=== PATIENT | female | born 1950 | race Caucasian/White ===

== ENCOUNTER → 2017-12-10 13:54 | Outpatient (CLI) | payer OTHER, SELFPAY ==
--- NOTE | 2017-12-10 13:57 | CDU_ITS ---
Reason For Study: Carotid stenosis Rt. Velocities/BP Lt. Velocities/BP Prox CCA 105.0/22.9 cm/sec. Prox CCA 110.0/21.7 cm/sec. Mid CCA 99.7/25.2 cm/sec. Mid CCA 108.0/25.2 cm/sec. Dist CCA 88.5/20.5 cm/sec. Dist CCA 95.0/28.7 cm/sec. Prox ICA 108.0/36.4 cm/sec. Prox ICA 267.0/72.3 cm/sec. Mid ICA 138.0/41.6 cm/sec. Mid ICA 135.0/35.7 cm/sec. Dist ICA 104.0/30.5 cm/sec. Dist ICA 103.0/31.1 cm/sec. Rt. ICA/CCA = 1.4. Lt. ICA/CCA = 2.5. Prox ECA 111.0/12.3 cm/sec. Prox ECA 110.0/11.7 cm/sec. Rt. Vert. 48.7/15.8 cm/sec. Lt. Vert. 35.0/9.8 cm/sec. Right Extracranial There is no significant atherosclerotic plaque noted in the right common carotid artery. There is heterogeneous, irregular atherosclerotic plaque noted in the right internal carotid artery. There is intimal thickening but no significant atherosclerotic plaque noted in the right external carotid artery. Antegrade flow is noted in the right vertebral artery. Left Extracranial There is no significant atherosclerotic plaque noted in the left common carotid artery. There is heterogeneous, irregular atherosclerotic plaque noted in the left internal carotid artery. There is no significant atherosclerotic plaque noted in the left external carotid artery. Antegrade flow is noted in the left vertebral artery. Procedure Carotid Duplex 50492. Exam performed in department. Interpretation Summary Moderate (50-69%) stenosis right extracranial internal carotid. Severe (>70%) stenosis left extracranial internal carotid. Flow within the vertebral arteries is antegrade bilaterally. Ordering Physician: MARYANN JEAN Referring Physician: Rupali Rizo Performed By: Annmarie Tran RVT
== END ==
PROVIDERS: Family Provider Family Medicine; PCP Family Medicine; Visit Provider Surgery Vascular Surgery
DX: I65.23 Occlusion and stenosis of bilateral carotid arteries (principal)
CPT/HCPCS: 93880

== ENCOUNTER → 2017-12-16 13:53 | Outpatient (CLI) | payer OTHER, SELFPAY ==
--- NOTE | 2017-12-16 14:02 | RAD_ITS ---
STUDY: X-RAY - LUMBAR SPINE REASON FOR EXAM: Female, 67 years old. Pain TECHNIQUE: 5 view(s) of the lumbar spine were obtained. COMPARISON: None FINDINGS: There is no evidence of fracture or dislocation in the lumbar spine. The vertebral body heights are well-maintained. There are mild degenerative changes. There are atherosclerotic calcifications noted in the aorta. RAD/L/S Spine Min 4 Views IMPRESSION: No fracture or dislocation in the lumbar spine. Mild degenerative changes. Atherosclerosis. Electronically Signed: Devonte Hawkins, at 19:36 EDT Tel , Service support ,
== END ==
PROVIDERS: Family Provider Family Medicine; PCP Family Medicine; Visit Provider Family Medicine
DX: M54.5 Low back pain (principal); G89.29 Other chronic pain
CPT/HCPCS: 72110

== ENCOUNTER → 2018-05-13 07:51 | Outpatient (CLI) | payer OTHER, SELFPAY ==
[2018-04-29 10:46] VITALS: BMI 34.8
--- NOTE | 2018-05-13 07:54 | BI_ITS ---
MAMMOGRAPHY - BILATERAL SCREENING REASON FOR EXAM: Female, 68 years old. Routine annual screening examination. PERTINENT HISTORY: Mother with breast cancer. Remote the left excisional breast biopsy. TECHNIQUE: Digital bilateral breast alfred (3D mammographic acquisition) in the CC and MLO projections. 2-D mediolateral oblique (MLO) and craniocaudad (CC) views of both breasts were obtained. CAD: Full Field Digital Mammography with Computer Added Detection was performed. COMPARISON: Comparison is made with prior study dated April 21, 2017 and April 01, 2016. FINDINGS: Breast Composition: The breasts are almost entirely fatty. There are no dominant masses or suspicious calcifications. Stable small bilateral benign appearing axillary lymph nodes. No other significant abnormalities are identified. There has been no significant change since the prior study. BI/SCREENING MAMM (CAD), BILAT IMPRESSION: Stable bilateral screening mammogram. Yearly follow-up mammogram recommended. (A) ASSESSMENT CATEGORY: BIRADS Category 2: Benign. A letter regarding these results will be sent to the patient by the facility within 30 days. Approximately 10% of breast cancers are not detected by mammography. A normal mammogram should not delay biopsy of a clinically suspicious abnormality. [id number] Electronically Signed: Mk Harris MD at 8:58 EST Tel [phone], Service support ,
--- OUTSIDE RECORDS SUMMARY | 2018-08-14 08:14 | XMS RPT_ITS ---
:1950 Author Organization OH[facility] Care Team Providers Name Role Phone Wyattgarcia, Rupali Attending Unavailable Malys, Rupali Primary Care Unavailable Raghav Voss Attending Unavailable Malys, Rupali Referring Unavailable Malys, Rupali Primary Care Unavailable Saul Tanner Attending Unavailable Malys, Rupali Referring Unavailable Malys, Rupali Primary Care Unavailable MIGUELANGEL PATTEN Attending Unavailable PATTEN, MIGUELANGEL Referring Unavailable Malys, Rupali Primary Care Unavailable Malys, Rupali Attending Unavailable Malys, Rupali Referring Unavailable Malys, Rupali Primary Care Unavailable Margaret John Attending Unavailable [place] Attending Unavailable Malys, Rupali Referring Unavailable Malys, Rupali Primary Care Unavailable ASSESSMENT, HEALTH RISK Attending Unavailable ASSESSMENT, HEALTH RISK Referring Unavailable Malys, Rupali Primary Care Unavailable Devonte Montemayor Attending Unavailable Malys, Rupali Referring Unavailable MIGUELANGEL PATTEN Attending Unavailable MALYS, RUPALI Saravanan Referring Unavailable MIGUELANGEL PATTEN Attending Unavailable IMCA Referring Unavailable IMCA Primary Care Unavailable PROBLEMS PROBLEMS DATE TYPE CONDITION / CODE ATTENDING STATUS SOURCE 01/09/2018 Active Unknown / MIGUELANGEL PATTEN Active [place] UNK(Unknown) [facility] Other [place] Repository 01/09/2018 Admitting Radha / MIGUELANGEL PATTEN Active [facility] diagnosis UNK(Unknown) [facility] Repository 01/06/2018 Unknown I25.10 - [place], Active [place] Atherosclerotic [facility] heart disease of [facility] [place] coronary Repository artery without angina pectoris / I25.10(ICD-10) 01/06/2018 Unknown I42.1 - Obstructive [place], Active [place] hypertrophic [facility] cardiomyopathy / Hospital I42.1(ICD-10) Repository 01/06/2018 Unknown E78.5 - [place], Active [place] Hyperlipidemia, [facility] unspecified / Hospital E78.5(ICD-10) Repository 01/06/2018 Unknown I34.1 - Nonrheumatic [place], Active [place] mitral (valve) [facility] prolapse / Hospital I34.1(ICD-10) Repository 01/06/2018 Unknown I34.0 - Nonrheumatic [place], Active [place] mitral (valve) [facility] insufficiency / Hospital I34.0(ICD-10) Repository 01/06/2018 Unknown I49.1 - Atrial [place], Active [place] premature [facility] depolarization / Hospital I49.1(ICD-10) Repository 01/06/2018 Unknown I49.3 - Ventricular [place], Active [place] premature [facility] depolarization / Hospital I49.3(ICD-10) Repository 01/06/2018 Unknown I65.23 - Occlusion [place], Active [place] and stenosis of [facility] bilateral carotid Hospital arteries / Repository I65.23(ICD-10) 12/16/2017 Unknown M54.5 - Low back Rupali Rizo Active [place] pain / M54.5(ICD-10) [facility] Hospital Repository 11/25/2017 Unknown M62.830 - [place] Saul Tanner Active [place] spasm of back / Community M62.830(ICD-10) Hospital Repository PROCEDURES PROCEDURES No Procedure Records FoundRESULTS RESULTS SCREENING MAMM (CAD), Observed: 05/13/2018 Status: F Source: [place] BIL 7:54 AM [facility] REPOSITORY [facility] Imaging Services [address] [place] [address] SCREENING MAMM (CAD), BIL MR#: [id number] Acct: [id number] Name: CRISTIAN HA Rep #: [id number] : 1950 F 68 From: Mk Harris MD PCP: Rupali Rioz DO Status: [facility] Study: SCREENING MAMM (CAD), BILAT Date of Exam: 05/13/18 Exam# [id number] Ordering Dr: Rupali Rizo DO MAMMOGRAPHY - BILATERAL SCREENING REASON FOR EXAM: Female, 68 years old. Routine annual screening examination. PERTINENT HISTORY: Mother with breast cancer. Remote the left excisional breast biopsy. TECHNIQUE: Digital bilateral breast alfred (3D mammographic acquisition) in the CC and MLO projections. 2-D mediolateral oblique (MLO) and craniocaudad (CC) views of both breasts were obtained. CAD: Full Field Digital Mammography with Computer Added Detection was performed. COMPARISON: Comparison is made with prior study dated April 21, 2017 and April 01, 2016. FINDINGS: Breast Composition: The breasts are almost entirely fatty. There are no dominant masses or suspicious calcifications. Stable small bilateral benign appearing axillary lymph nodes. No other significant abnormalities are identified. There has been no significant change since the prior study. BI/SCREENING MAMM (CAD), BILAT IMPRESSION: Stable bilateral screening mammogram. Yearly follow-up mammogram recommended. (A) ASSESSMENT CATEGORY: BIRADS Category 2: Benign. A letter regarding these results will be sent to the patient by the facility within 30 days. Approximately 10% of breast cancers are not detected by mammography. A normal mammogram should not delay biopsy of a clinically suspicious abnormality. [id number] Electronically Signed: Mk Harris MD at 8:58 EST Tel [phone], Service support , CC: Rupali Rizo DO Director Of Medical Review: Signed URGENT CARE VISIT Observed: 05/06/2018 Status: F Source: [place] RE[place] 6:48 AM [facility] REPOSITORY [facility] [address] [place] [address] OFFICE VISIT Date of Service: 04/29/18 MR#: [id number] Acct: [id number] Name: CRISTIAN HA Rep #: [id number] : 1950 Provider: Devonte MCGRATH Age/Sex: 67/F Location: [facility].NOW Status: Signed with Addenda ADDENDUM by Devonte MCGRATH on 05/06/18 at 0647 Addendum entered and electronically signed by ALCIDES Medina 05/06/18 06:47: Dx: Maxillary Sinusitis HPI Details: CRISTIAN HA, is a 67 F who presents to the office today for Assessment AND Plan Plan - ALCIDES Medina Augmentin as prescribed today. Clear fluids, rest, Tylenol, warm facial compresses as needed as instructed today. Follow-up with PCP in 3-5 days should symptoms not improved, sooner should symptoms worsen or any other concerns develop. Patient states acknowledging understanding all the above. This note was generated with RightsFlow dictation software. It may contain incorrect words, spelling, and punctuation that were not noted in checking the note before signing. 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 Accompanied by: Self Is patient in pain?: No Allergies No Known Allergies Allergy (Verified 04/29/18 10:47) Medications Ezetimibe [Zetia] 10 mg PO DAILY 02/20/14 [History Confirmed 04/29/18] Metoprolol(XL)Succ [Toprol Xl (Beta Mc)] 25 mg PO DAILY 02/20/14 [History Confirmed 04/29/18] Simvastatin [Zocor] 40 mg PO QHS 02/20/14 [History Confirmed 04/29/18] aspirin 81 mg tablet,delayed release 81 mg PO QDAY #30 tab 01/05/18 [Rx Confirmed 04/29/18] amoxicillin 875 mg-potassium clavulanate 125 mg tablet 1 tab PO BID #28 tab 04/29/18 [Rx Confirmed 04/29/18] [facility] Medical History Hyperlipidemia (Chronic) Carotid artery disease (Chronic) Atherosclerotic heart disease of [place] coronary artery without angina pectoris (Chronic) Nonrheumatic mitral valve regurgitation (Acute) Nonrheumatic mitral (valve) prolapse (Acute) Premature ventricular contraction (Acute) Premature atrial contractions (Acute) Hypertrophic obstructive cardiomyopathy (Chronic) Asthma (Chronic) Diverticulosis (Chronic) HTN (hypertension) (Chronic) Surgical History History of back surgery (Resolved) History of breast biopsy (Resolved) History of carpal tunnel surgery (Resolved) History of tonsillectomy (Resolved) Family History Father CAD (coronary artery disease) Myocardial infarction Hx of CABG Mother Hypertension Brother CAD (coronary artery disease) Myocardial infarction Brother CAD (coronary artery disease) Myocardial infarction Sister Diabetes Other Heart disease Social History Smoking Status: Never smoker alcohol intake: current details: occasional HPI HPI Chief Complaint: Sinus pain Details: CRISTIAN HA, is a 67 F who presents to the office today for initial evaluation approximately 1 month history of progressively worsening facial pressure, postnasal drip, chills. No complaints of fever, sweats, rash, cough, chest pain/shortness of breath, lightheadedness/ dizziness, syncope/near syncope. She is a non-smoker. She states she lives alone, noting she has not been around any others with similar symptoms. She has taken no gxkm-rzs-culwijz products to assist with her symptoms. She notes no other associated symptoms no other alleviating or aggravating factors. Exam Const General: cooperative, healthy appearing, no acute distress, comfortable Orientation: alert, awake, oriented x3 HENMT Head: normal to inspection Ears: hearing grossly normal bilaterally, external ears normal, TM's normal bilaterally, EAC's normal Nose: external nose normal, nares normal, septum normal, no nasal discharge Face and sinus: normal facial exam, face symmetric, sinus tenderness maxillary Mouth: oral mucosae normal, lip normal, tongue normal Teeth and gingiva: gingiva normal, dentition normal Throat: posterior oropharynx normal, tonsils normal, uvula midline, postnasal drainage (Scant purulent) Eyes General: appearance normal, both eyes and all related structures Neck Neck: normal visual inspection, full ROM, no meningeal signs, supple, lymphadenopathy (Bilateral anterior cervical node swelling and tenderness palpation) Neck mass: No Thyroid: thyroid normal Chest Chest palpation AND inspection: normal inspection of the chest Resp Effort AND Inspection: normal respiratory effort, able to speak in complete sentences, symmetric chest movement, no cough Auscultation: Bilateral: Clear to Auscultation Cardio Palpation: normal PMI Rate: regular rate Rhythm: regular rhythm Heart Sounds: S1 normal, S2 normal, no gallops, murmur systolic mid and III/, no rubs Pulses: radial pulses present GI Inspection: normal to inspection Skin General: no rashes or lesions noted Neuro General: alert, awake, oriented x3, gait normal Cognition: normal cognition Speech: speech normal Gait: normal gait Motor: muscle tone normal throughout Sensory Exam: no sensory deficits noted Psych Appearance: grossly normal Mental Status: mental status grossly normal Mood: congruent mood Affect: normal affect Speech and Movement: speech and movement normal Attitude: cooperative Thought Process: normal Thought Content: normal Judgment: judgment good Assessment AND Plan Plan Augmentin as prescribed today. Clear fluids, rest, Tylenol, warm facial compresses as needed as instructed today. Follow-up with PCP in 3-5 days should symptoms not improved, sooner should symptoms worsen or any other concerns develop. Patient states acknowledging understanding all the above. This note was generated with GeoQuipation software. It may contain incorrect words, spelling, and punctuation that were not noted in checking the note before signing. Medications New: Coding Level of Care Code Off vis,est,level 3 04/29/18 1107 <Electronically signed by Devonte MCGRATH> Date Devonte MCGRATH Cosigner Signature: Date (if applicable) CC: [facility], EMPLOYEE Collected: 02/16/2018 Status: F Source: [place] 6:21 AM [facility] REPOSITORY TYPE CODE TESTS RESULT OUT OF RANGE REFERENCE UNITS LAB L100.1000 4.4-11.0 K/mm3 Normal WBC 6.9 LAB L100.1200 4.2-5.4 M/mm3 Normal RBC 4.79 LAB L100.1300 12.0-15.0 g/dl Normal HGB 14.3 LAB L100.1400 37-47 % Normal HCT 42.2 LAB L100.1500 81-99 fL Normal MCV 88.1 LAB L100.1600 27.0-32.0 pg Normal MCH 29.9 LAB L100.1700 32-36 g/gl Normal MCHC 33.9 LAB L100.1810 11.6-14.6 % Normal RDW CV 13.0 LAB L100.1820 35.1-43.9 fl Normal RDW SD 41.4 LAB L100.1900 150-450 K/mm3 Normal PLT 215 LAB L100.2000 6.2-12.0 fl Normal MPV 11.4 LAB L100.2110 47-70 % Normal NEUT% 66.6 LAB L100.2210 19-41 % Low LY% 18.3 LAB L100.2310 0-10 % Normal MONO% 8.6 LAB L100.2410 0-5 % High EO% 5.7 LAB L100.2510 0-1 % Normal BASO% 0.4 LAB L100.2620 2.0-7.7 X10 3/uL Normal Absolute Neut 4.6 LAB L100.2720 0.83-4.51 X10 3/ul Normal Absolute Lymph 1.26 Performed By: #### L100.0200 #### [facility] Laboratory [address] [place], [place], [address] EMPLOYEE PROFILE Collected: 02/16/2018 Status: F Source: [place] 6:21 AM [facility] REPOSITORY TYPE CODE TESTS RESULT OUT OF RANGE REFERENCE UNITS LAB L501.0100 74-106 mg/dL High GLU 121 Result Comment: Fasting Glucose result from 100 to 125 mg/dL suggests IMPAIRED HOMEOSTASIS per A.D.A. criteria. Please note revised GLUCOSE reference range effective 2017. LAB L501.1000 7-18 mg/dL Normal BUN 18 LAB L501.1100 0.55-1.02 mg/dL Normal CREAT,SERUM 0.90 Result Comment: The validity of the calculated GFR AND GFRAA in patients over 70 years has not been determined. Clinical correlation is essential. LAB L501.1110 >60 mL/min Normal EST GFR 66 Result Comment: Non- GFR Calc LAB L501.1115 >60 mL/min Normal EST GFR - AA 80 Result Comment: GFR Calc LAB L501.1300 10-20 RATIO Normal BUN/CRE 20.0 LAB L501.1400 2.6-6.0 mg/dL Normal URIC 5.9 Result Comment: The drugs N-Acetylcysteine and Metamizole may falsely depress this assay. LAB L501.1500 6.4-8.2 g/dL Normal T PROT 7.0 LAB L501.1800 3.2-5.0 g/dL Normal ALB 3.7 LAB L501.1950 2.2-4.2 g/dL Normal GLOB 3.3 LAB L501.2000 0.9-2.4 RATIO Normal A/G 1.1 LAB L501.2200 8.5-10.1 mg/dL Normal CA 9.4 LAB L501.2300 2.5-4.9 mg/dL Normal PHOS 3.8 LAB L501.4100 15-37 U/L Normal AST 17 LAB L501.4305 45-117 U/L Normal ALK P 99 LAB L501.4405 13-56 U/L Normal ALT 23 LAB L501.4600 0.20-1.00 mg/dL Normal T BILI 0.70 LAB L501.4700 0.00-0.30 mg/dL Normal D BILI 0.22 LAB L501.4900 200 mg/dL Normal CHOL 130 Result Comment: <200 mg/dL Desirable 200-240 mg/dL Borderline >240 mg/dL High Risk LAB L501.5000 mg/dL Normal TRIG 69 Result Comment: The drugs N-Acetylcysteine and Metamizole may falsely depress this assay. Serum Triglycerides Reference Interval Normal <150 mg/dL Borderline high 150 - 199 mg/dL High 200 - 499 mg/dL Very High > or = 500 mg/dL LAB L501.5300 136-145 mmol/L Normal NA 145 LAB L501.5600 3.5-5.1 mmol/L Normal K 4.5 LAB L501.5900 98-107 mmol/L Normal CL 106 LAB L501.6100 21.0-32.0 mmol/L Normal CO2 30.0 LAB L501.6200 5-15 Normal 9 GAP LAB L501.6400 mg/dL Normal HDL 62 Result Comment: The drugs N-Acetylcysteine and Metamizole may falsely depress this assay. Reference Range HDL <40 mg/dL Low HDL Cholesterol HDL >or= 60 mg/dL High HDL Cholesterol LAB L501.6475 Normal CHOL:HDL 2.10 LAB L501.6500 0-130 mg/dL Normal LDL 54 LAB L501.6600 5-40 mg/dL Normal VLDL 14 LAB L504.2610 84-246 U/L Normal LDH 233 Performed By: #### L500.2900 #### [facility] Laboratory [address] [place], [address] [employer], EMPLOYEE Collected: 02/16/2018 Status: F Source: [place] 6:21 AM [facility] REPOSITORY TYPE CODE TESTS RESULT OUT OF RANGE REFERENCE UNITS LAB L400.3000 Yellow COLOR Normal Yellow LAB L400.3050 Clear Normal CLARITY Sl. Cloudy LAB L400.3200 Normal mg/dl Normal GLUCOSE, UR Normal LAB L400.3300 Negative mg/dL Normal BILIRUBIN URINE Negative LAB L400.3400 Negative mg/dl Normal KETONE UR Negative LAB L400.3465 1.002-1.030 Normal SP.GR. DIPSTX 1.015 LAB L400.3550 5.0 - 8.0 pH UR Normal 6.0 LAB L400.3600 Negative mg/dl PROT Normal DIPSTX Negative LAB L400.3700 Normal mg/dl Normal UROBILI Normal LAB L400.3750 Negative Normal NITRITE UR Negative LAB L400.3780 Negative /ul Normal OCCULT BLOOD-UR Negative LAB L400.3800 Negative /ul High LEUK ESTERASE 100 Performed By: #### L400.0100 #### [facility] Laboratory [address] [facility]. [place], [place], [address] NICOTINE URINE DRUG Collected: 02/16/2018 Status: F Source: [place] SCREEN 6:21 AM [facility] REPOSITORY TYPE CODE TESTS RESULT OUT OF RANGE REFERENCE UNITS LAB L505.6250 TO BE Normal CONFIRMED Result Comment: CONFIRMATORY TESTING FOR ALL POSITIVE URINE DRUG SCREEN RESULTS WILL ONLY BE SENT OUT UPON PHYSICIAN ORDER. The results of Urine Drug Screen methods provide only preliminary analytical test results. A more specific alternate chemical method must be used in order to obtain a confirmed analytical result. Gas chromatography/mass spectrometery (GC/MS) is the preferred confirmatory method. Clinical consideration and professional judgement should be applied to any drug of abuse test result, particularly when preliminary positive results are used. LAB L505.6270 <200 ng/mL Normal COT DRG Negative SCREEN Result Comment: Cotinine is the first-stage metabolite of Nicotine. Performed By: #### L505.6240 #### [facility] [address] [facility] [place], [address] PROGRESS Observed: 01/11/2018 Status: COMPLETED Source: [place] 11:02 AM [facility] REPOSITORY HNO ID: [id number] Author: Miguelangel Patten Service: (none) Author Type: Physician Type: Progress Notes Filed: 01/11/2018 11:04 AM Note Text: This patient is seen today in yearly follow-up of her carotid artery disease. She has known bilateral asymptomatic carotid artery stenosis that we have been following. Her recent carotid duplex suggests that the left may have proceeded beyond 70%. Now when I look at the imaging and compared to previous imaging there are criteria that are met do put this in the greater than 70% range but other criteria put it in the 50- 69% range. For this reason when I'm recommending to the patient is that we follow-up on this in the near future with a CT angiogram. I tell her that we will probably follow this up a little bit more closely since this is progressed. The patient is completely asymptomatic at this point in time she is had no evidence of any TIA or stroke symptomatology. She has had no amaurosis fugax. She has had no speech symptomatology. She has had no evidence of weakness numbness or incoordination of the arms or legs or face. With this being the case I do think it safe for us to go ahead and wait period of time and get a CT angiogram. I think that if this has shown progression to a greater than 80% level then we will have to consider surgical intervention. I explained this to the patient she seems to be satisfied with this plan of proceeding. We will go ahead and follow up with the patient when she returns after her CT angiogram has been performed in about 4-6 months.I spent 15 minutes in the visit, with more than 50% of the total khph-an-ufqr time of the visit in counseling / coordination of care. CNOV Observed: 01/09/2018 Status: COMPLETED Source: [place] 10:[address] [facility] Office Visit (AGMIL) CRISTIAN HA ([id number]) 1950 F Date Time Provider Department 01/09/18 10:30 AM MIGUELANGEL PATTEN During your visit today, we recorded the following information about you: Pulse Respiration Blood pressure Weight 68/minute 16/minute 122/70 90.7 kg Height 1.626 m Miguelangel Patten MD 01/11/2018 11:04 AM Signed This patient is seen today in yearly follow-up of her carotid artery disease. She has known bilateral asymptomatic carotid artery stenosis that we have been following. Her recent carotid duplex suggests that the left may have proceeded beyond 70%. Now when I look at the imaging and compared to previous imaging there are criteria that are met do put this in the greater than 70% range but other criteria put it in the 50-69% range. For this reason when I'm recommending to the patient is that we follow-up on this in the near future with a CT angiogram. I tell her that we will probably follow this up a little bit more closely since this is progressed. The patient is completely asymptomatic at this point in time she is had no evidence of any TIA or stroke symptomatology. She has had no amaurosis fugax. She has had no speech symptomatology. She has had no evidence of weakness numbness or incoordination of the arms or legs or face. With this being the case I do think it safe for us to go ahead and wait period of time and get a CT angiogram. I think that if this has shown progression to a greater than 80% level then we will have to consider surgical intervention. I explained this to the patient she seems to be satisfied with this plan of proceeding. We will go ahead and follow up with the patient when she returns after her CT angiogram has been performed in about 4-6 months.I spent 15 minutes in the visit, with more than 50% of the total qzoc-ys-vfpg time of the visit in counseling / coordination of care. Referring Provider: RUPALI RIZO [[id number]] Allergies As of Date: 01/09/2018 (No Known Allergies) Date Reviewed: 01/09/2018 Reviewed by: Naima Grullon LPN - Fully Assessed Reason for Visit: Stenosis [1326] Cmt: Cristian is here for yearly follow up carotid stenosis. Carotid doppler 12/10/17 Primary Visit Diagnosis:Carotid stenosis, asymptomatic, bilateral [I65.23] Prescriptions as of 01/09/2018 Sig: FLUTICASONE 50 MCG/ACTUATION * Use 2 Sprays in each nostril * SIMVASTATIN 40 MG TABLET Take 40 mg by mouth daily at * * TOPROL XL 50 MG TABLET,EXTEND* Take one(1) tablet daily. * ENTERIC COATED ASPIRIN 81 MG * Take one(1) tablet daily. * ZETIA 10 MG TABLET Take one(1) tablet daily. METHYLPREDNISOLONE 4 MG TABLE* As Instructed per package Patient not taking: Reported on 01/09/2018 BENZONATATE 100 MG CAPSULE Take 2 capsules by mouth thre* Patient not taking: Reported on 01/09/2018 CETIRIZINE 10 MG TABLET Take one(1) tablet daily. Problem List As Of Date 01/09/2018 Noted Resolved Hyperlipidemia [E78.5] INVALID FOR* Heart murmur [R01.1] INVALID FOR* Hypertension [I10] INVALID FOR* Allergic rhinitis [J30.9] INVALID FOR* Carotid stenosis, bilateral [I65.23] Encounter Status:Closed by MIGUELANGEL PATTEN MD on 01/11/18 CARDIOLOGY VISIT Observed: 01/05/2018 Status: F Source: [place] REPORT 4:36 PM [facility] REPOSITORY [address] [place] [address] OFFICE VISIT Date of Service: 01/05/18 MR#: [id number] Acct: [id number] Name: CRISTIAN HA Rep #: [id number] : 1950 Provider: Feliz Coronado MD Age/Sex: 67/F Location: [facility] Status: Signed HPI HPI Details: CRISTIAN HA, is a 67 F who presents to the office today for outpatient cardiovascular follow-up of her history of underlying CAD, hypertrophic obstructive type cardiomyopathy, PAC/PVCs and ectopic atrial tachycardia, mitral valve prolapse/regurgitation, superimposed upon carotid artery disease. Since her visit of 12/30/2016 she states she has been doing well from a cardiac standpoint. She denies any ongoing chest discomfort or difficulty breathing. There has been no issues with respect ongoing palpitations, near-syncope, or syncope. She is due to have her lipids checked in the near future. This will be with her wellness evaluation. She states she is due for peripheral vascular surgery appointment with Dr. Miguelangel Patten later this week. She recently had her carotid artery duplex study performed in preparation for this. The results are as noted below. Intake Vital Signs01/05/18 Height 5 ft 3 in 01/05/18 Weight: 202 lb 01/05/18 Body Mass Index (BMI) 35.7 01/05/18 Blood Pressure 120/64 Intake Visit Reasons: 1 Y FU Allergies No Known Allergies Allergy (Verified 01/05/18 15:45) Medications Ezetimibe [Zetia] 10 mg PO DAILY 02/20/14 [History Confirmed 01/05/18] Metoprolol(XL)Succ [Toprol Xl (Beta Mc)] 25 mg PO DAILY 02/20/14 [History Confirmed 01/05/18] Simvastatin [Zocor] 40 mg PO QHS 02/20/14 [History Confirmed 01/05/18] aspirin 81 mg tablet,delayed release 81 mg PO QDAY #30 tab 01/05/18 [Rx Confirmed 01/05/18] [facility] Medical History Hyperlipidemia (Chronic) Carotid artery disease (Chronic) Atherosclerotic heart disease of [place] coronary artery without angina pectoris (Chronic) Nonrheumatic mitral valve regurgitation (Acute) Nonrheumatic mitral (valve) prolapse (Acute) Premature ventricular contraction (Acute) Premature atrial contractions (Acute) Hypertrophic obstructive cardiomyopathy (Chronic) Asthma (Chronic) Diverticulosis (Chronic) HTN (hypertension) (Chronic) Surgical History History of back surgery (Resolved) History of breast biopsy (Resolved) History of carpal tunnel surgery (Resolved) History of tonsillectomy (Resolved) Family History Father CAD (coronary artery disease) Myocardial infarction Hx of CABG Mother Hypertension Brother CAD (coronary artery disease) Myocardial infarction Brother CAD (coronary artery disease) Myocardial infarction Sister Diabetes Other Heart disease Social History Smoking Status: Never smoker alcohol intake: current details: occasional ROS Const Const: Negative for fatigue, weakness, weight gain, weight loss, frequent falls or excessive sweating Eyes Eyes: Negative for change in vision, blurry vision or transient loss of vision ENT ENT: Negative for dizziness or balance problems Cardio Chest Pain: No Palpitations: No Edema: None Muscle aches with walking: None Resp Respiratory: Negative for SOB with activity or SOB at rest GI GI: Negative vomiting or vomiting blood/hematemesis : Negative for hematuria Musc Musc: Negative for balance problems, muscle aches/ myalgia, muscle weakness or joint pain Skin Skin: Negative non-healing lesions or rash Neuro Neuro: Negative for weakness, blurry vision, dizziness, lightheadedness, frequent falls or orthostatic symptoms Champ Hematologic/Lymphatic: Negative for easy bleeding Endo Endo: Negative for fatigue or excessive sweating Psych Psych: Negative for anxiety or depression Allergy Allergy/Immunology: Negative for hives, Negative for rash Cardiology Exam Const Appearance: cooperative, healthy appearing, comfortable, no acute distress, well developed and well groomed Nutritional Appearance: overweight Orientation: alert, awake and oriented x3 Head Head: normal to inspection, normocephalic and atraumatic Ears: hearing grossly normal bilaterally Nose: external nose normal Face and Sinus: face symmetric Mouth: oral mucosae normal Teeth and gingiva: fair dentition Eyes Eyelids: eyelids normal Conjunctivae: conjunctivae normal Pupils: PERRL EOM: EOM intact bilaterally Neck Neck: normal visual inspection and full ROM Carotids: normal carotid upstroke Chest Chest inspection: normal inspection of the chest and symmetric chest movement Auscultation: Bilateral: Clear to Auscultation Cardio Palpation: normal PMI Rate: regular rate Rhythm: regular rhythm Heart sounds: S1 normal and S2 normal Murmur: Grade 3/6, harsh, mid systolic, LLSB and LVOT altered with Valsalva and hand ice carver GI GI: normal to inspection, bowel sounds present, soft and no hepatosplenomegaly Neuro General: alert, awake and oriented x3 Skin Skin: no rashes or lesions noted Extremities Pulses: Normal: Right Radial Pulse, Left Radial Pulse Lower Extremity Edema: None: Bilateral Psych Psychological: normal affect Supplemental Info She had a transthoracic echocardiogram performed on 01/09/2017 Interpretation Summary Left ventricular systolic function is normal. The estimated ejection fraction is 70 %. Moderate concentric left ventricular hypertrophy. The left atrium is mildly enlarged. There is mild mitral annular calcification. Mild diffuse mitral valve thickening. Mild-Moderate (1-2+) eccentric mitral valve insufficiency. Trivial tricuspid valve insufficiency. Aortic sclerosis, no stenosis. Right ventricular systolic pressure estimated to be 30 mmHg. Transmitral diastolic flow velocities suggest diastolic dysfunction (pseudonormal pattern). She had a diagnostic cardiac catheterization performed on 08/13/2005, IMPRESSION 1. Elevation left ventricular and diastolic compatible with decreased diastolic compliance. 2, Intrapulmonary right heart pressures appear within acceptable limits. 3. Oxygen saturations found no obvious evidence of intracardiac shunting phenomena. 4. Left ventricular pullback procedure during Valsalva maneuver demonstrating an inducible gradient of approximately 47 mmHg. 5. Left ventricular evaluation during PVC maneuver demonstrating post PVC accentuation with Brockenbrough phenomenon. 6. Left ventricle: Preserved LV systolic function/hyperdynamic LV systolic function with an estimated LVEF of 70-75%. 7. Left main - Angiographically normal. 8. LAV - Angiographically normal. 9. LCX - Angiographically normal. 10. RCA Proximal minimal luminal irregularities. 11. Mitral valve Trace mitral valve regurgitation. COMMENTS Of note, the aforementioned findings, with respect to hemodynamics and left ventricular systolic function, appears suggestive of an underlying hypertrophic obstructive cardiomyopathy. She had a Holter monitor performed on 01/15/2011: RARE ISOLATED PREMATURE ATRIAL COMPLEXES. NO RUNS NOTED. RARE ISOLATED PREMATURE VENTRICULAR COMPLEXES. RARE VENTRICULAR SIGEMINY AND [id number]. NO RUN NOTED. NO SYMPTOMS DOCUMENTED IN 24 HOUR HOLTER DIARY. NORMAL SINUS RHYTHM WITH T WAVE INVERSION NOTED IN CHANNELS 2 AND 3. MINIMUM HR 52 BPM AT 2:29:13 AM WHILE ASLEEP. AVERAGE HR 75 8PM MAXIMUM HR 115 8PM AT 4:43:14 PM WHILE EXERCISING, NO SYMPTOM RECORDED, She had a carotid artery duplex study performed on 12/10/2017: Interpretation Summary Moderate (50-69%) stenosis right extracranial internal carotid. Severe (>70%) stenosis left extracranial internal carotid. Flow within the vertebral arteries is antegrade bilaterally. Assessment AND Plan 1. Atherosclerosis of [place] coronary artery of [place] heart without angina pectoris I25.10 Mild Plan At the present time she appears to be doing well. She will continue risk factor modification and medical management 2. Hypertrophic obstructive cardiomyopathy I42.1 Plan She does have a history of hypertrophic obstructive type cardiomyopathy. She appears to be doing well without any obvious symptoms or adverse events. She will continue her beta-mc therapy. 3. Hyperlipidemia, unspecified hyperlipidemia type E78.5 Plan Her lipid labs will be checked during her upcoming wellness evaluation. 4. Nonrheumatic mitral (valve) prolapse I34.1 Plan She does have a history of underlying mitral valve prolapse. She appears to be without significant change based on history or examination. Her mitral valve anatomy and physiology was evaluated during her most recent echocardiogram. She will continue to be followed over time 5. Nonrheumatic mitral valve insufficiency I34.0 Plan She does have a history of MR. Based on her recent echo it was mild to moderate. She will be followed by history, exam, and echocardiogram in the future. 6. Premature atrial beat I49.1 Plan She does have a history of underlying ectopy. She appears without obvious symptoms at this time. She will continue her beta-mc appendectomy. 7. Premature ventricular beat I49.3 Plan Again she is without obvious symptoms. She will continue her current beta-mc therapy. 8. Bilateral carotid artery stenosis I65.23 Plan She will be following up with Dr. Miguelangel Patten of [facility] peripheral vascular surgery later this week for reevaluation Plan Detail Other Medications New: Additional Comments Thank you for allowing me to participate in the care of your patient. Please don't hesitate to call if any issues arise. This note was generated using a voice recognition system and there may be incorrect words, spelling or punctuation that were not noted when reviewing the office note prior to saving. Follow Up 1 Year (PFM) Coding Level of Care Code Off vis,est,level 3 Diagnoses Atherosclerosis of [place] coronary artery of [place] heart without angina pectoris I25.10 [place] vs. transplanted heart: [place] heart Hypertrophic obstructive cardiomyopathy I42.1 Hyperlipidemia, unspecified hyperlipidemia type E78.5 Hyperlipidemia type: unspecified Nonrheumatic mitral (valve) prolapse I34.1 Nonrheumatic mitral valve insufficiency I34.0 Premature atrial beat I49.1 Premature ventricular beat I49.3 Bilateral carotid artery stenosis I65.23 Laterality: bilateral Carotid artery disease type: stenosis Coding Level of Care Code Off vis,est,level 3 Diagnoses Atherosclerosis of [place] coronary artery of [place] heart without angina pectoris I25.10 [place] vs. transplanted heart: [place] heart Hypertrophic obstructive cardiomyopathy I42.1 Hyperlipidemia, unspecified hyperlipidemia type E78.5 Hyperlipidemia type: unspecified Nonrheumatic mitral (valve) prolapse I34.1 Nonrheumatic mitral valve insufficiency I34.0 Premature atrial beat I49.1 Premature ventricular beat I49.3 Bilateral carotid artery stenosis I65.23 Laterality: bilateral Carotid artery disease type: stenosis 01/05/18 1636 <Electronically signed by Feliz Coronado MD> Date Feliz Coronado MD Cosigner Signature: Date (if applicable) CC: MIGUELANGEL PATTEN MD; Rupali Rizo DO CAROTID DUPLEX Observed: 12/24/2017 Status: F Source: [place] [facility]TR[facility]OUND 8:19 AM [facility] REPOSITORY [facility] Cardiovascular Services [address] [place] [address] Carotid Duplex Ultrasound 12/10/17 1357 MR#: [id number] Acct: [id number] Name: HACRISTIAN Rep #: [id number] : 1950 67 From: Umer Newman MD Attending Dr: MIGUELANGEL PATTEN MD Status: REG CLI Ordering Dr: Miguelangel Patten MD Date: 12/10/17 Location: [facility] Sex: F C Admitted: Reason For Study: Carotid stenosis Rt. Velocities/BP Lt. Velocities/BP Prox CCA 105.0/22.9 cm/sec. Prox CCA 110.0/21.7 cm/sec. Mid CCA 99.7/25.2 cm/sec. Mid CCA 108.0/25.2 cm/sec. Dist CCA 88.5/20.5 cm/sec. Dist CCA 95.0/28.7 cm/sec. Prox ICA 108.0/36.4 cm/sec. Prox ICA 267.0/72.3 cm/sec. Mid ICA 138.0/41.6 cm/sec. Mid ICA 135.0/35.7 cm/sec. Dist ICA 104.0/30.5 cm/sec. Dist ICA 103.0/31.1 cm/sec. Rt. ICA/CCA = 1.4. Lt. ICA/CCA = 2.5. Prox ECA 111.0/12.3 cm/sec. Prox ECA 110.0/11.7 cm/sec. Rt. Vert. 48.7/15.8 cm/sec. Lt. Vert. 35.0/9.8 cm/sec. Right Extracranial There is no significant atherosclerotic plaque noted in the right common carotid artery. There is heterogeneous, irregular atherosclerotic plaque noted in the right internal carotid artery. There is intimal thickening but no significant atherosclerotic plaque noted in the right external carotid artery. Antegrade flow is noted in the right vertebral artery. Left Extracranial There is no significant atherosclerotic plaque noted in the left common carotid artery. There is heterogeneous, irregular atherosclerotic plaque noted in the left internal carotid artery. There is no significant atherosclerotic plaque noted in the left external carotid artery. Antegrade flow is noted in the left vertebral artery. Procedure Carotid Duplex 87310. Exam performed in department. Interpretation Summary Moderate (50-69%) stenosis right extracranial internal carotid. Severe (>70%) stenosis left extracranial internal carotid. Flow within the vertebral arteries is antegrade bilaterally. Ordering Physician: MIGUELANGEL PATTEN Referring Physician: Rupali Rizo Performed By: Annmarie Tran RVT 12/24/17817 Date Umer Newman MD CC: MIGUELANGEL PATTEN MD; Rupali Rizo DO Date Dictated: 12/10/17 1357 Date Transcribed: 12/24/17817 Director Of Medical Review: Signed L/S SPINE MIN 4 Observed: 12/16/2017 Status: F Source: [facility] 1:59 PM [facility] REPOSITORY [facility] Imaging Services [address] [place] [address] L/S Spine Min 4 Views MR#: [id number] Acct: [id number] Name: CRISTIAN HA Rep #: [id number] : 1950 F 67 From: Devonte Hawkins MD PCP: Rupali Rizo DO Status: REG CLI Study: L/S Spine Min 4 Views Date of Exam: 12/16/17 Exam# [id number] Ordering Dr: Rupali Rizo DO STUDY: X-RAY - LUMBAR SPINE REASON FOR EXAM: Female, 67 years old. Pain TECHNIQUE: 5 view(s) of the lumbar spine were obtained. COMPARISON: None FINDINGS: There is no evidence of fracture or dislocation in the lumbar spine. The vertebral body heights are well-maintained. There are mild degenerative changes. There are atherosclerotic calcifications noted in the aorta. RAD/L/S Spine Min 4 Views IMPRESSION: No fracture or dislocation in the lumbar spine. Mild degenerative changes. Atherosclerosis. Electronically Signed: Devonte Hawkins, at 19:36 EDT Tel , Service support , CC: Rupali Rizo DO Director Of Medical Review: Signed URGENT CARE VISIT Observed: 11/25/2017 Status: F Source: [place] RE[place] 5:11 PM [facility] REPOSITORY [facility] [address] [place] [address] [address] [place] [address] OFFICE VISIT Date of Service: 11/25/17 MR#: [id number] Acct: [id number] Name: CRISTIAN HA Rep #: [id number] : 1950 Provider: Saul MCGRATH Age/Sex: 67/F Location: [facility] Status: Signed Intake Vital Signs11/25/17 Height 5 ft 3 in Intake Visit Reasons: BACK SPASMS Allergies No Known Allergies Allergy (Verified 11/25/17 16:11) Medications Ezetimibe [Zetia] 10 mg PO DAILY 02/20/14 [History Confirmed 11/25/17] Metoprolol(XL)Succ [Toprol Xl (Beta Mc)] 25 mg PO DAILY 02/20/14 [History Confirmed 11/25/17] Simvastatin [Zocor] 40 mg PO QHS 02/20/14 [History Confirmed 11/25/17] PFS Medical History HTN (hypertension) (Chronic) Family History Other Heart disease Hypertension Social History Smoking Status: Never smoker alcohol intake: never HPI HPI Details: CRISTIAN HA, is a 67 F who presents to the office today for complaint of left-sided back spasm. Patient states the last 24 hours she has noticed her back spasm of the left side. Patient states that she has had episodes like this previously which were made better with time and rest. She denies any numbness or tingling or radiation of pain. He has had no loss of bowel or bladder. No other associated symptoms or alleviating/aggravating factors. ROS Const Constitutional: No chills, fever(s), fatigue or abnormal sleep pattern Musc Musculoskeletal: Positive for back pain; no stiffness, tingling, numbness, muscle weakness or radiating pain into limb Skin Skin: No wounds or lesions Neuro Neurology: No behavioral changes, confusion, tingling or numbness Psych Psychiatric: No behavioral changes, No confusion, No abnormal sleep pattern Endo Endocrine: No fatigue Exam Const General: cooperative, healthy appearing Musc Musculoskeletal: Yes joint tenderness; no muscle weakness or decreased ROM Other: Several small palpable muscle spasms to the left side of the thoracolumbar spine with no pain to palpation midline. Skin General: no rashes or lesions noted Neuro General: alert, CN's II-XI intact bilaterally Psych Appearance: grossly normal Mental Status: mental status grossly normal Assessment AND Plan Problems 1. Spasm of back muscles M62.830 Status Acute Plan Naproxen and Flexeril as prescribed today. Patient advised of rest, heat and other supportive measures. Advised of potential red flags when appropriate report to the ED. Patient advised to follow-up with her PCP in 5-7 days if no better or sooner if worse. Patient verbalized understanding of all the above. Medications Discontinued: cyclobenzaprine Discontinued Reason: Order Change5 mg PO TID PRN muscle spasm M62.830 d Coding Level of Care Code Off vis,est,level 3 Diagnoses Spasm of back muscles M62.830 11/25/17 1711 <Electronically signed by Saul MCGRATH> Date Saul MCGRATH Cosigner Signature: Date (if applicable) CC: URGENT CARE VISIT Observed: 08/03/2017 Status: F Source: [place] RE[facility] 1:00 PM [facility] REPOS[facility] [address] [place] [address] OFFICE VISIT Date of Service: 08/03/17 MR#: [id number] Acct: [id number] Name: HACRISTIAN Rep #: [id number] : 1950 Provider: ALCIDES Voss Age/Sex: 67/F Location: [facility] Status: Signed Intake Vital Signs08/03/17 Height 5 ft 3 in 08/03/17 Weight: 199 lb 08/03/17 Body Mass Index (BMI) 35.2 08/03/17 Blood Pressure 126/78 Intake Visit Reasons: SINUS INFECTION,EAR ACHE Chief Complaint: 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 Is patient in pain?: No Allergies No Known Allergies Allergy (Verified 08/03/17 12:35) Medications Ezetimibe [Zetia] 10 mg PO DAILY 02/20/14 [History Confirmed 08/03/17] Metoprolol(XL)Succ [Toprol Xl (Beta Mc)] 25 mg PO DAILY 02/20/14 [History Confirmed 08/03/17] Simvastatin [Zocor] 40 mg PO QHS 02/20/14 [History Confirmed 08/03/17] amoxicillin 875 mg-potassium clavulanate 125 mg tablet 1 tab PO Q12H 10 Days #20 tab 08/03/17 [Rx Confirmed 08/03/17] PFSH Medical History HTN (hypertension) (Chronic) Family History Other Heart disease Hypertension Social History Smoking Status: Never smoker alcohol intake: never HPI HPI Chief Complaint: Sinus pain Details: CRISTIAN HA, is a 67 F who presents to the office today for sinus pain 3 weeks. Patient reports ear pressure postnasal drip. She has had low-grade fevers and headaches. ROS Const Constitutional: No chills or fever(s) Eyes Eyes: No change in vision ENT ENT: Positive for nasal discharge, sinus pain, sinus pressure and ear pressure Resp Respiratory: No cough, chest congestion, shortness of breath or wheezing Cardio Cardiology: No chest pain at rest or chest pain with exertion Gastro GI: No abdominal pain, diarrhea, vomiting or nausea/dyspepsia Musc Musculoskeletal: No back pain or abnormal walking Skin Skin: No rash or change in skin color Neuro Neurology: No confusion, abnormal walking or abnormal speech Psych Psychiatric: No confusion Aller/Imm Allergy/Immunologic: No wheezing Exam Const General: healthy appearing, no acute distress Orientation: oriented x3, oriented to person, oriented to place, oriented to time HENMT Face and sinus: sinus tenderness Eyes General: appearance normal, both eyes and all related structures Conjunctivae: conjunctivae normal Sclera: sclerae normal Pupils: PERRL Neck Neck: no lymphadenopathy Thyroid: thyroid normal Chest Chest palpation AND inspection: normal inspection of the chest Resp Effort AND Inspection: normal respiratory effort, no cough, no respiratory distress Auscultation: Bilateral: Clear to Auscultation Cardio Rate: regular rate Rhythm: regular rhythm GI Inspection: normal to inspection Auscultation: normal bowel sounds Palpation: no hepatosplenomegaly, no splenomegaly, no masses Skin General: no pallor Rashes: no rashes Nails: no clubbing Neuro General: oriented x3, gait normal Extrem General: normal to inspection, no pedal edema, no calf tenderness, normal gait, no edema, no cyanosis, no clubbing, no calf tenderness bilaterally, no pedal edema Psych Mood: congruent mood Affect: normal affect Speech and Movement: speech and movement normal Assessment AND Plan Problems 1. Sinusitis J32.9 Plan Begin Augmentin every 12 hours. Add Claritin Zyrtec or Liat daily. Keep well-hydrated. Return to the clinic if symptoms worsen Medications New: Coding Level of Care Code Off vis,est,level 3 Diagnoses Sinusitis J32.9 08/03/17 1300 <Electronically signed by Raghav MCGRATH> Date Raghav MCGRATH Cosigner Signature: Date (if applicable) CC: ALLERGIES ALLERGIES DATE TYPE / CODE NAME / CODE REACTION SEVERITY SOURCE 04/29/2018 Drug No Known Unknown [facility] Allergy/416 Allergies/Y35022 [facility] 483454(SNOM 0388(RXNORM) Repository ED CT) Drug NO KNOWN [facility] Class/77293 ALLERGIES Other [place] 1003(SNOMED Repository CT) [id number] NO KNOWN [place] [address](SNOMED [facility]ERGIES [facility]) Repository ENCOUNTERS ENCOUNTERS ADMIT/DISCHARGE ACCOUNT NUMBER ADMITTING ENCOUNTER LOCATION SOURCE CLASS 05/13/2018 [id number] Ambulatory [facility] ding:OPBI Repository 04/29/2018/04/29/20 [id number] Ambulatory BMSBuilding: [address] Repository 02/16/2018 [id number] Ambulatory [facility] ding:EMPH Repository 01/09/2018/01/10/20 [id number] Ambulatory [address] Other [place] Repository 01/09/2018/01/10/20 [id number] Ambulatory [address] System MEDICAL Repository CENTERBuildi ng:AGWM 01/05/2018/01/06/20 [id number] Ambulatory BMSBuilding: [place] [facility] Repository 12/31/2017 [id number] Ambulatory BMSBuilding: [place] [facility] Repository 12/16/2017 [id number] Ambulatory [facility] ding:RAD Repository 12/10/2017 [id number] Ambulatory [facility] ding:CVS Repository 11/25/2017/11/26/19 [id number] Ambulatory BMSBuilding: [place] 18 [facility] Repository 08/03/2017/08/04/19 [id number] Ambulatory BMSBuilding: [place] 18 BMS[facility] Repository PAYERS PAYERS ENCOUNTER GUARANTOR PAYER SUBSCRIBER SOURCE 05/13/2018 CRISTIAN A Primary Insurance:[facility] CRISTIAN A [place] [id number] [facility] [id number] Number: Repository [address]Crk: 234 [id number] [phone] () Date:4723-10-98LG [address] [address], [place] [address]WU: CHECK WEBSITE 05/13/2018 Secondary NOT GIVENUNK [place] Insurance:SELF PAY [facility] Number: Effective Repository Date:2018-03-27 04/29/2018 CRISTIAN A Primary Insurance:[facility] CRISTIAN A [place] [id number] [facility] [address] Number: Repository [id number]: 234 [id number] [phone] () Date:8010-26-05FS [address] [address], [place] [address]DK: CHECK WEBSITE 04/29/2018 Secondary NOT GIVENUNK [place] Insurance:SELF PAY [facility] Number: Effective Repository Date:2018-04-29 02/16/2018 CRISTIAN A Primary NOT GIVENUNK [place] [id number] Insurance:SELF PAY [place], [place] Number: Effective Repository [phone]: (234) Date:2018-02-16 [phone] (HP) 01/09/2018 CRISTIAN Primary Insurance:MMO CRISTIAN [facility] MIRANDASDOB: [facility] Number: BROOKSDOB: [facility] [id number] Repository [facility] Date: [place], [place] [address]Zyv: () 01/05/2018 CRISTIAN A Primary Insurance:[facility] CRISTIAN A [place] [id number] [facility] 2216-07-[place] Number: Repository [id number]: 234 [id number] [phone] () Date:6754-10-73FQ [address] [address], [place] [address]UR: CHECK WEBSITE 01/05/2018 Secondary NOT GIVENUNK [place] Insurance:SELF PAY [facility] Number: Effective Repository Date:2018-01-05 12/31/2017 CRISTIAN A Primary Insurance:[facility] CRISTIAN A [place] [id number] [facility] [id number] Number: Repository [id number]: 234 [id number] [phone] () Date:4111-13-20PK [address] [address]IFLDVSNVN, [place] [address]OG: CHECK WEBSITE 12/31/2017 Secondary NOT GIVENUNK [place] Insurance:SELF PAY [facility] Number: Effective Repository Date:2017-12-31 12/16/2017 CRISTIAN A Primary Insurance:[facility] CRISTIAN A [place] [id number] [facility] [id number] Number: Repository [address]Iwb: 234 [id number] [phone] () Date:1738-72-91DK [address] [address], [place] [address]UC: CHECK WEBSITE 12/16/2017 Secondary NOT GIVENUNK [place] Insurance:SELF PAY [facility] Number: Effective Repository Date:2017-12-16 12/10/2017 CRISTIAN A Primary Insurance:[facility] CRISTIAN A [place] [id number] [facility] [address], [place] Number: Repository [id number]: 234 [id number] [phone] (HP) Date:3645-88-61HH [address] [address], [place] [address]SA: CHECK WEBSITE 12/10/2017 Secondary NOT GIVENUNK [place] Insurance:SELF PAY [facility] Number: Effective Repository Date:2017-11-17 11/25/2017 CRISTIAN Primary Insurance:[facility] CRISTIAN [place] [id number] [facility] [id number], [place] Number: Repository [phone]: 234 [id number] [phone] () Date:[id number] [address], [place] [address]VJ: CHECK WEBSITE 11/25/2017 Secondary NOT GIVENUNK Wanda Insurance:SELF PAY [facility] Number: Effective Repository Date:2017-11-25 08/03/2017 CRISTIAN Primary Insurance:[facility] CRISTIAN Wanda [id number] [facility] [id number] Number: Repository [id number]: 234 [id number] [phone] () Date:[id number] [address] [address], [place] [address]TY: CHECK WEBSITE 08/03/2017 Secondary NOT GIVENUNK [place] Insurance:SELF PAY [facility] Number: Effective Repository Date:2017-08-03
== END ==
PROVIDERS: Family Provider Family Medicine; PCP Family Medicine; Visit Provider Family Medicine
DX: Z12.31 Encounter for screening mammogram for malignant neoplasm of breast (principal)
CPT/HCPCS: 77063; 77067

== ENCOUNTER → 2018-12-30 | Outpatient (CLI) | payer OTHER, SELFPAY ==
[2018-11-25 10:34] VITALS: BMI 34.8
--- NOTE | 2018-12-30 06:44 | ECHOCS_ITS ---
Reason For Study: Dyspnea/SOB Procedure This was a 2D Doppler, Color Flow transthoracic echocardiogram. The study was technically difficult. Contrast injection was performed. Exam performed in department. Left Ventricle Normal LV size. Severe concentric left ventricular hypertrophy. Left ventricular systolic function is normal. The estimated ejection fraction is 70 %. There is evidence of diastolic dysfunction. No regional wall motion abnormalities noted. Right Ventricle Normal RV size. Normal systolic function. Atria The left atrium is moderately enlarged. Normal right atrium. No doppler evidence for ASD. Mitral Valve There is moderate mitral annular calcification. Extension of the mitral annular calcification onto the posterior mitral valve leaflet. Mild diffuse mitral valve thickening. Chordal systolic anterior motion of the mitral valve. Mild-Moderate (1-2+) mitral valve insufficiency. Tricuspid Valve Normal tricuspid valve. Trivial tricuspid valve insufficiency. Unable to estimate RV systolic pressure/pulmonary artery pressure due to technically difficult study. Aortic Valve Trisinus/trileaflet aortic valve. Mild focal aortic valve calcification. Pulmonic Valve The pulmonic valve is not well visualized. Great Vessels The aortic root is not well visualized. Pericardium/Pleural No pericardial effusion. Medication 22 gauge I.V. with prn adaptor inserted into right arm. Diluted definity 2ml given slow IV push to enhance endocardial definition. MMode/2D Measurements & Calculations LVIDd: 4.4 cm IVSd: 2.2 cm LAV(MOD-bp): 81.8 ml LVIDs: 2.7 cm LVPWd: 1.7 cm RVDd: 3.1 cm FS: 38.8 % LAV(MOD-bp) Indexed: 41.8 ml/m2 LAV(MOD-sp2): 72.8 ml LAV(MOD-sp4): 92.9 ml LA A4 area: 25.9 cm2 RA A4 area: 13.6 cm2 Time Measurements MV dec time: 0.22 sec Doppler Measurements & Calculations MV E max deshaun: 98.7 cm/sec Lat Peak E' Deshaun: 4.8 cm/sec Med Peak E' Deshaun: 3.4 cm/sec MV A max deshaun: 162.5 cm/sec E/E' lat: 20.7 E/E' med: 28.9 MV E/A: 0.61 MV V2 max: 167.6 cm/sec MV P1/2t max deshaun: 104.0 cm/sec Ao V2 max: 302.5 cm/sec MV max P.2 mmHg MV P1/2t: 87.9 msec Ao max P.6 mmHg MV V2 mean: 87.6 cm/sec Ao V2 mean: 184.3 cm/sec MV mean P.8 mmHg MV dec slope: 346.7 cm/sec2 Ao mean P.3 mmHg MV V2 VTI: 35.6 cm MVA(P1/2t): 2.5 cm2 Ao V2 VTI: 56.3 cm MR max deshaun: 602.6 cm/sec PA V2 max: 100.2 cm/sec MR max P.3 mmHg MR mean deshaun: 404.0 cm/sec MR mean P.9 mmHg MR VTI: 130.4 cm Interpretation Summary Left ventricular systolic function is normal. The estimated ejection fraction is 70 %. Severe concentric left ventricular hypertrophy. The left atrium is moderately enlarged. There is moderate mitral annular calcification. Extension of the mitral annular calcification onto the posterior mitral valve leaflet. Mild diffuse mitral valve thickening. Chordal systolic anterior motion of the mitral valve. Mild-Moderate (1-2+) mitral valve insufficiency. Trivial tricuspid valve insufficiency. Mild focal aortic valve calcification. Unable to estimate RV systolic pressure/pulmonary artery pressure due to technically difficult study. There is evidence of diastolic dysfunction. Ordering Physician: Feliz Coronado Referring Physician: Rupali Rizo Performed By: Russell Tai RCS
--- NOTE | 2018-12-30 06:46 | CDU_ITS ---
Reason For Study: Stenosis Rt. Velocities/BP Lt. Velocities/BP Prox CCA 86.5/18.6 cm/sec. Prox CCA 114.6/22.5 cm/sec. Mid CCA 74.7/17.3 cm/sec. Mid CCA 82.7/16.3 cm/sec. Dist CCA 73.4/20 cm/sec. Dist CCA 77.7/20 cm/sec. Prox ICA 107.3/33 cm/sec. Prox ICA 259.5/75.3 cm/sec. Mid ICA 107.3/26.5 cm/sec. Mid ICA 220.7/36.5 cm/sec. Dist ICA 87.8/27.8 cm/sec. Dist ICA 90/24.3 cm/sec. Rt. ICA/CCA = 1.4. Lt. ICA/CCA = 3.1. Prox ECA 106/6.9 cm/sec. Prox ECA 130.2/11.5 cm/sec. Rt. Vert. 52.2/11.6 cm/sec. Lt. Vert. 47.6/10.2 cm/sec. Right Extracranial There is intimal thickening but no significant atherosclerotic plaque noted in the right common carotid artery. There is heterogeneous, irregular atherosclerotic plaque noted in the right internal carotid artery. There is intimal thickening but no significant atherosclerotic plaque noted in the right external carotid artery. Antegrade flow is noted in the right vertebral artery. Left Extracranial There is intimal thickening but no significant atherosclerotic plaque noted in the left common carotid artery. There is heterogeneous, irregular atherosclerotic plaque noted in the left internal carotid artery. There is intimal thickening but no significant atherosclerotic plaque noted in the left external carotid artery. Antegrade flow is noted in the left vertebral artery. Procedure Carotid Duplex 27748. Exam performed in department. Interpretation Summary Mild (<50%) stenosis right extracranial internal carotid. Severe (>70%) stenosis left extracranial internal carotid. Flow within the vertebral arteries is antegrade bilaterally. Ordering Physician: Reshma Ghotra Referring Physician: Rupali Rizo Performed By: Selina Jasmine RVT
--- NOTE | 2018-12-30 09:33 | STRESSREP ---
Stress Test Report Date: Procedure: Exercise tolerance test/imaging study Indications: Shortness of breath/dyspnea on exertion; hypertrophic cardiomyopathy Consent: Per the patient Procedure: The patient exercised on a Bucky protocol for 6 minutes completing Stage II achieving a peak heart rate of 136 bpm (89 % predicted maximal heart rate) with a peak blood pressure 152/76 mmHg and a peak MET capacity of 7 METs. The baseline ECG demonstrated normal sinus rhythm; poor R wave progression; nonspecific ST/T wave abnormality. The peak exercise ECG demonstrated continued nonspecific ST/T wave abnormality. There were rare PVCs/ventricular couplets during exercise and rare PVCs during recovery. The functional capacity was considered good. There was no complaint of chest discomfort during exercise or recovery. The examination was discontinued secondary to dyspnea. Impression: 1. Technically adequate (percent predicted maximal heart rate greater than 85%) exercise tolerance test 2. Peak exercise ECG with continued nonspecific ST/T wave abnormality 3. There were rare PVCs/ventricular couplets during exercise and rare PVCs during recovery 4. Nuclear images pending Myocardial perfusion imaging study: Technique: The patient was injected with 11.0 mCi of technetium 99m Cardiolite and subsequently rest SPECT Cardiolite nuclear imaging was obtained in the horizontal long, vertical long, and short axis views. The patient exercised on a Bucky protocol for 6 minutes completing Stage II achieving a peak heart rate of 136 bpm (89 % predicted maximal heart rate) with a peak blood pressure 152/76 mmHg and a peak MET capacity of 7 METs. The patient was injected with 32.9 mCi of technetium 99m Cardiolite and subsequently stress SPECT Cardiolite nuclear imaging was obtained in the horizontal long, vertical long, and short axis views. A gated Cardiolite study at peak stress was obtained. Interpretation: Rest and stress SPECT Cardiolite nuclear imaging status post realignment, normalization, and attenuation correction, demonstrates the appearance of relative uniform tracer uptake and myocardial perfusion appearing within normal limits. There is end systolic thickening and brightening. The gated Cardiolite study demonstrates myocardial thickening and inward wall motion. The reported LVEF is 58 %. Impression: 1. Rest and stress SPECT Cardiolite nuclear imaging demonstrate relative uniform tracer uptake and myocardial perfusion appearing within normal limits. 2. The gated Cardiolite study reports an LVEF of 58 %. This note was generated with CannaBuild software. It may contain incorrect words, spelling, and punctuation that were not noted in checking the note before signing.
== END | disposition home or self-care (01) ==
PROVIDERS: Family Provider Family Medicine; PCP Family Medicine; Referring Provider Nurse Practitioner Primary Care; Visit Provider Nurse Practitioner Primary Care
DX: I25.10 Atherosclerotic heart disease of native coronary artery without angina pectoris (principal); I34.0 Nonrheumatic mitral (valve) insufficiency; I42.1 Obstructive hypertrophic cardiomyopathy; R06.02 Shortness of breath; I65.23 Occlusion and stenosis of bilateral carotid arteries
CPT/HCPCS: 78452; 93017; 93306; 93880; A9500; Q9957; A4216; C8929

== ENCOUNTER → 2019-01-29 07:57 | Outpatient (CLI) | payer OTHER, SELFPAY ==
[2018-11-25 10:34] VITALS: BMI 34.8
[2019-01-16 10:43] LABS: Creatinine, Serum 0.97 mg/dL (0.55-1.02)
[2019-01-16 10:44] LABS: EST Glomerular Filtration Rate 61 mL/min (>60); Est Glom Filt Rate - Afr Amer 73 mL/min (>60)
--- NOTE | 2019-01-29 07:59 | CT_ITS ---
STUDY: CTA HEAD AND NECK WITH CONTRAST REASON FOR EXAM: Female, 68 years old. History of carotid stenosis. RADIATION DOSAGE (If Supplied By Facility): CTDIvol = ( 28.00 ) mGy, DLP = ( 1398.85 ) mGycm TECHNIQUE: CT angiography was performed with a multi-detector CT scanner. Data acquisition was obtained from the skull base through the vertex following intravenous administration of 100 IV Isovue 370. MIP images were reconstructed from the axial data set. Post-processing of the angiographic images was performed, with multiplanar reformation and 3D reconstruction. Individualized dose optimization techniques were used for this CT. COMPARISON: Comparison is made with prior examination of February 18, 2013. FINDINGS: Normal bilateral petrous carotid arteries. Normal right cavernous carotid artery with a normal supraclinoid bifurcation. Normal left cavernous carotid artery with a normal supraclinoid bifurcation. Normal right A1 segments of the anterior cerebral artery. Normal left A1 segments of the anterior cerebral artery. Normal intact anterior communicating artery (ACOM). Normal bilateral A2 segments of the anterior cerebral arteries. Normal right M1 and M2 segments of the middle cerebral arteries, with a normal M1 bifurcation. Normal left M1 and M2 segments of the middle cerebral arteries, with a normal M1 bifurcation. Normal right posterior communicating artery (PCOM). Normal left posterior communicating artery (PCOM). Normal bilateral vertebral arteries. Normal basilar artery with a normal basilar bifurcation. The visualized bilateral superior cerebellar (SCA) arteries are normal. Normal bilateral P1, P2 and visualized P3 segments of the posterior cerebral arteries. There is no demonstrated aneurysm of the augustine of Nguyen. There is no demonstrated abnormality of the visualized brain. AORTIC ARCH: There is atherosclerotic calcific plaque formation of the aortic arch and great vessels arising from the aortic arch, without a hemodynamically significant stenosis. There is a normal origin of the brachiocephalic, left common carotid, and left subclavian arteries. Atherosclerotic plaque formation at the origin of the left common carotid artery. RIGHT CAROTID ARTERIES: Normal right common carotid artery (CCA). Normal right common carotid bulb. There is extensive atherosclerotic plaque formation of the origin of the right internal carotid artery with an estimated stenosis of greater than 70%. Normal visualized cervical portion of the right internal carotid artery. Normal origin of the right external carotid artery (ECA). LEFT CAROTID ARTERIES: Normal left common carotid artery (CCA). Normal left common carotid bulb. There is extensive atherosclerotic plaque formation of the origin of the left internal carotid artery with an estimated stenosis of greater than 70%. Normal visualized cervical portion of the left internal carotid artery. Normal origin of the left external carotid artery (ECA). VERTEBRAL ARTERIES: Normal bilateral vertebral arteries. CT/CTA Head AND Neck W/ Contrast IMPRESSION: Greater than 70% stenosis at the origin of both the right and left internal carotid arteries due to calcified atherosclerotic plaques. This has progressed as compared to prior study. Electronically Signed: Mk Harris, at 9:59 EDT , Service support ,
== END ==
PROVIDERS: Family Provider Family Medicine; PCP Family Medicine; Referring Provider Surgery Vascular Surgery; Visit Provider Surgery Vascular Surgery
DX: R09.89 Other specified symptoms and signs involving the circulatory and respiratory systems (principal); I65.23 Occlusion and stenosis of bilateral carotid arteries
CPT/HCPCS: 36415; 70496; 70498; 82565; Q9967

== ENCOUNTER → 2019-02-10 07:20 | Outpatient (CLI) | payer OTHER, SELFPAY ==
[2018-11-25 10:34] VITALS: BMI 34.8
--- NOTE | 2019-02-10 07:21 | RAD_ITS ---
STUDY: X-RAY CHEST REASON FOR EXAM: Female, 68 years old. Shortness of breath. TECHNIQUE: PA and lateral views of the chest. COMPARISON: None. FINDINGS: The lungs are clear and expanded. There is no demonstrated pleural abnormality. Normal size heart. Normal mediastinum and chelsea. Normal visualized pulmonary arteries. Normal visualized aortic arch and descending thoracic aorta. There are diffuse degenerative changes of the visualized thoracic spine. There is degenerative osteoarthritis of the bilateral shoulders. There is no demonstrated abnormality of the visualized soft tissue structures of the upper abdomen. RAD/Chest PA and Lateral IMPRESSION: Degenerative changes, as described above. No demonstrated acute cardiopulmonary process. Electronically Signed: Edson Murillo DO at 17:14 EDT Tel [phone], Service support ,
--- NOTE | 2019-02-10 13:38 | PFT ---
INTRODUCTION: The patient is a 68-year-old female that presents for pulmonary function studies secondary to a diagnosis of shortness of breath. Respiratory therapy reports good patient effort. Bronchodilators were used during testing. INTERPRETATION: Forced expiration spirometry demonstrates no evidence of a large airways obstructive ventilatory defect. There was no significant response to aerosolized bronchodilators, based upon strict ATS criteria. Spirograms are of fair quality and plateau normally. Body plethysmography was performed and reveals lung volumes to be within normal limits. Diffusing capacity by single breath CO is at the lower limits of normal. IMPRESSION: Normal spirometry and lung volumes. Diffusing capacity is at the lower limits of normal.
== END ==
PROVIDERS: Family Provider Family Medicine; PCP Family Medicine; Referring Provider Internal Medicine Cardiovascular Disease; Visit Provider Internal Medicine Cardiovascular Disease
DX: R06.02 Shortness of breath (principal); R06.09 Other forms of dyspnea
CPT/HCPCS: 71046; 94060; 94726; 94729

== ENCOUNTER 2019-03-24 11:00 | Outpatient (RCR) | payer OTHER, SELFPAY ==
[2018-11-25 10:34] VITALS: BMI 34.8
[2019-03-08 17:11] VITALS: BMI 35.3
== END 2019-03-25 23:59 ==
LOC: NS 11:00
PROVIDERS: Family Provider Family Medicine; PCP Family Medicine; Visit Provider Family Medicine
DX: Z71.3 Dietary counseling and surveillance (principal); E66.9 Obesity, unspecified; R73.02 Impaired glucose tolerance (oral); Z68.34 Body mass index [BMI] 34.0-34.9, adult
CPT/HCPCS: 97802; 97803

== ENCOUNTER 2019-04-12 12:00 | Outpatient (RCR) | payer OTHER, SELFPAY ==
[2019-03-08 17:11] VITALS: BMI 35.3
== END 2019-04-24 23:59 ==
LOC: NS 12:00
PROVIDERS: Family Provider Family Medicine; PCP Family Medicine; Visit Provider Family Medicine
DX: Z71.3 Dietary counseling and surveillance (principal); E66.9 Obesity, unspecified; R73.02 Impaired glucose tolerance (oral); Z68.34 Body mass index [BMI] 34.0-34.9, adult
CPT/HCPCS: 97803

== ENCOUNTER 2019-05-12 12:20 | Outpatient (RCR) | payer OTHER, SELFPAY ==
[2019-03-08 17:11] VITALS: BMI 35.3
== END 2019-05-25 23:59 ==
LOC: NS 12:20
PROVIDERS: Family Provider Family Medicine; PCP Family Medicine; Visit Provider Family Medicine
DX: Z71.3 Dietary counseling and surveillance (principal); E66.9 Obesity, unspecified; R73.02 Impaired glucose tolerance (oral); Z68.34 Body mass index [BMI] 34.0-34.9, adult
CPT/HCPCS: 97803

== ENCOUNTER → 2019-05-14 15:37 | Outpatient (CLI) | payer OTHER, SELFPAY ==
[2018-11-25 10:34] VITALS: BMI 34.8
[2019-03-08 17:11] VITALS: BMI 35.3
--- NOTE | 2019-05-14 15:38 | BI_ITS ---
MAMMOGRAPHY - BILATERAL SCREENING 3-D TOMOSYNTHESIS REASON FOR EXAM: Female, 69 years old. FM HX MOTHER 50, LT EXC BX 2004 PERTINENT HISTORY: Mother with breast cancer. Prior left excisional biopsy. TECHNIQUE: 2-D mammograms and 3-D Tomosynthesis of the breast (s) were performed. CAD was performed. COMPARISON: 05/13/2018, 04/21/2017 FINDINGS: The breast composition is almost entirely fat. No dense spiculated masses or suspicious microcalcifications are identified. No architectural distortion is identified. There is no skin thickening or retraction. There has been no significant change since the prior study. BI/SCREEN MAMM (CAD) W/TA BILAT IMPRESSION: No mammographic signs of malignancy. Routine yearly mammograms recommended. ASSESSMENT CATEGORY: BIRADS Category 1: Negative. A letter regarding these results will be sent to the patient by the facility within 30 days. FOLLOW UP RECOMMENDATION: Yearly follow up mammogram recommended. (A) Approximately 10% of breast cancers are not detected by mammography. A normal mammogram should not delay biopsy of a clinically suspicious abnormality. Electronically Signed: Derrick Quan MD at 9:47 EST Tel [phone], Service support ,
== END ==
PROVIDERS: Family Provider Family Medicine; PCP Family Medicine; Referring Provider Family Medicine; Visit Provider Family Medicine
DX: Z12.31 Encounter for screening mammogram for malignant neoplasm of breast (principal)
CPT/HCPCS: 77063; 77067

== ENCOUNTER 2019-06-16 15:45 | Outpatient (RCR) | payer OTHER, SELFPAY ==
[2019-03-08 17:11] VITALS: BMI 35.3
[2019-05-28 16:18] VITALS: BMI 35.3
== END 2019-06-25 23:59 ==
LOC: NS 15:45
PROVIDERS: Family Provider Family Medicine; PCP Family Medicine; Visit Provider Family Medicine
DX: Z71.3 Dietary counseling and surveillance (principal); E66.9 Obesity, unspecified; R73.02 Impaired glucose tolerance (oral); Z68.34 Body mass index [BMI] 34.0-34.9, adult
CPT/HCPCS: 97803

== ENCOUNTER 2019-06-18 15:48 | Emergency (ER) | payer OTHER, SELFPAY ==
[2019-05-28 16:18] VITALS: BMI 35.3
[2019-06-18 15:51] VITALS: BP 155/76; PULSE 72; RESP 17; TEMP 36.4; O2SAT 96; BMI 34.5
[2019-06-18 16:25] VITALS: RESP 16
--- NOTE | 2019-06-18 16:26 | ED.VIS.FALL ---
History of Present Illness Chief Complaint: Fall Informant: Patient Occurred: Today Mechanism/Context: Same level fall, Trip Usually ambulates: Without assistance Quality of Pain: Aching Narrative: Patient is a 69-year-old female presenting after mechanical fall. Patient was trying to clean her desk at work when her foot tripped over the chair and she fell forward. Patient caught herself with her right knee and her right elbow. She did hit her head on the metal trash bin. She denies any loss conscious. She is on aspirin. She was amatory immediately afterwards. Her coworkers thought she should come to the emergency room to be evaluated for Workmen's Compensation. Her last tetanus was in 2013. Patient currently has some mild pain at her elbow and knee. She denies any other complaints. Tetanus Immunization: 5-10 years Past Medical History - Allergies and Home Meds Allergies/Adverse Reactions: Allergies No Known Allergies Allergy (Verified 06/18/19 15:49) Primary Care Physician: Rupali Rizo DO [Primary Care Provider] - Past Medical History: - - Hyperlipidemia, bilateral carotid artery stenosis, PVCs, Hocm, hypertension Surgical History: noncontributory Smoking Status: Never smoker Review of Systems General: Denies: Chills, Fever, Sweats Eyes: Denies: Visual changes - bilaterally, Diplopia ENT: Denies: Rhinorrhea, Sore throat Cardiovascular: Denies: Chest pain, Palpitations Respiratory: Denies: Dyspnea, Cough, Dyspnea on exertion Gastrointestinal: Denies: Abdominal pain, Nausea, Vomiting, Diarrhea, Melena, Hematochezia Genitourinary: Denies: Dysuria, Hematuria, Frequency Musculoskeletal: Denies: Back pain, Extremity Pain Skin: Reports: Abrasions - Right elbow, right knee. Denies: Rash, Wounds Neurological: Denies: Headache, Weakness, Numbness Physical Exam Vital Signs/Narrative: Vital Signs Temp Pulse Resp BP Pulse Ox 06/18/19 15:51 97.6 F L 72 17 155/76 H 96 Inital Vital Signs reviewed: Yes General: Well nourished, Well developed Head: Normocephalic, Atraumatic. Negative for: Tenderness Eyes: Perrl, EOMI ENT: TM's clear, No hemotympanum or drainage, No trauma, Nasal septal hematoma Neck: Nontender, Full ROM. Negative for: Spinal Tenderness, Paraspinal Tenderness Cardiovascular: Regular rate, Regular rhythm, No murmurs Respiratory: No distress, CTA bilaterally, Chest nontender Abdomen: Soft, Nontender, Nondistended, Normal bowel sounds Back: Nontender Skin: Normal color, No rash, Trauma - Superficial abrasion 1 cm to right elbow, 2 cm superficial abrasion to anterior right knee Neurological: Alert, Oriented x3, Cranial nerves II-XII grossly intact, Normal Strength, Normal Sensation Psychological: Normal affect Diagnostic/Tx/Re-eval - Medical Decision Making She is evaluated after mechanical fall. She caught herself with her right elbow knee and sustained abrasions. She did hit her head on waistband denies any loss of consciousness. She is only on aspirin. She is a normal neurologic exam. She does not require head CT at this time. No concern for intracranial process. She does not have any neck tenderness. Workmen's Compensation paperwork is filed. Tetanus is updated as it is been greater than 5 years. Patient is counseled on signs and symptoms requiring return to the emergency room. Patient verbalizes agreement and understand this plan. Patient discharged home in stable and improved condition. ED Disposition - Plan for ED Patient: Disposition: Home or Assisted Living Diagnosis: Fall, Abrasion of right lower extremity, Abrasion of right elbow, initial encounter, Need for tetanus booster Instructions: FALL, Mechanical, Abrasion Referrals: Rupali Rizo DO [Primary Care Provider] - Additional Instructions: Follow-up with occupational health or your PCP as needed. Your tetanus was updated today. Apply bacitracin ointment to your abrasions as needed.
[2019-06-18] MEDS: Diphth,Pertuss(Acell),Tet Vac 0.5 ML Vial IM (16:30)
[2019-06-18 16:45] VITALS: RESP 16
== END 2019-06-18 16:53 | disposition home or self-care (01) ==
PROVIDERS: Emergency Provider Emergency Medicine; PCP Family Medicine
DX: S50.311A Abrasion of right elbow, initial encounter (principal); S80.811A Abrasion, right lower leg, initial encounter; W01.0XXA Fall on same level from slipping, tripping and stumbling without subsequent striking against object, initial encounter; E78.5 Hyperlipidemia, unspecified; I10 Essential (primary) hypertension; I42.1 Obstructive hypertrophic cardiomyopathy; I65.23 Occlusion and stenosis of bilateral carotid arteries; Z79.82 Long term (current) use of aspirin; Z23 Encounter for immunization
CPT/HCPCS: 90471; 90715; 99282

== ENCOUNTER 2019-06-23 07:24 | Day surgery (SDC) | payer OTHER, SELFPAY ==
[2019-03-08 17:11] VITALS: BMI 35.3
--- NOTE | 2019-06-23 07:36 | HP.PCM_ITS ---
History of Present Illness Date of Admission: 06/23/19 The patient is a 69 year old F presents for screening colonoscopy. Pt last colonoscopy was in [address] Jaime- diverticulosis, small internal hemorrhoids. Patient denies any chronic abdominal pain, nausea, vomiting. Patient denies family history of colon cancer. Past Medical/Surgical History - Planned Operation Planned Operative Procedure/s: cscope open access Date of Operative Procedure: 06/23/19 Permit Signed: No S.O.S: No Is This Patient Having a Total Joint: No - Previous Hospitalizations/Surgeries HX Hospitalizations: No HX of Surgeries: cscope 10 yrs ago. carpal tunnel right and left. lumps removed from back. breast biopsy Any Problems With Anesthesia: Yes - nausea,vomiting You/Your Family Experience Fever (Hyperthermia) With Anes: No Cholinesterase deficiency: No - Cardiovascular Hx Chest Pain within Last 2 months: No Hx of Irregular Heartbeat and/or Afib: No - cad/heart murmur/leaky valve/follosw with whg/last visit 02/2019 Hx Heart Attack: No Hx Congestive Heart Failure: No Hx Rheumatic Fever: No Hx Hypertension: Yes - controlled with med Hx Internal Defibrillator: No Hx Pacemaker: No Hx Cardiac Catheterization: No - 2002 What facility was last heart cath performed: [place] Date of last Heart Cath: 2002 Hx Cardiac Surgery/Stents/Etc.: No Hx Stress Test: Yes - 2018 and echo 2018 HX Edema: Yes - occ lower legs Hx Pain in Legs when Walking/Leg Cramps: No - Respiratory Chronic Cough: No HX of Shortness of Breath: No Hoarseness: No Hx Chronic Obstructive Pulmonary Disease (COPD): No Hx Asthma: Yes - mild/no inhalers Hx Emphysema: No Hx Sleep Apnea: No Hx Oxygen Use at Home: No Hx Respiratory Tract Infection/Cold (presently): No Do You Snore Loudly (louder than talking or can be heard): No Do You Often Feel Tired/ Fatigued/ Sleepy Dring Daytime?: No Has Anyone Observed You Stop Breathing During Sleep?: No Result (for STOP score): Negative Hx Smoking: No Smoking Status: Never smoker - Gastrointestinal Hx Gastroesophageal Reflux: No - . Hx Gastrointestinal Disorders: Yes - diverticulitis hx Hx Gastrointestinal Bleed: No Hx Ulcer: No Hx Hiatal Hernia: No Difficulty Chewing/Swallowing: No Recent Onset of Swallowing Problems: No Special diet followed at home: No Hx Unplanned Weight Loss of 20#: No HX Unplanned Weight Gain of 20#: No - Neurological Hx Seizures: No HX Syncope/Blackout Spells/Unconsciousness: No Hx CVA/Stroke: No Hx Transient Ischemic Attacks (TIA): No Hx Multiple Sclerosis: No Hx Parkinson's Disease: No Hx Head/Neck Injury: No Hx Headaches: No Hx Back Injury/Pain: No Recent Onset of Speech Difficulty: No Restless Legs: No Does patient have nerve stimulator: No Patient instructed to have device shut off: No Rep notified?: No - Blood Disorder Hx Leukemia: No Bleeding Tendencies: No Hx Deep Vein Thrombosis: No Hx High Cholesterol: Yes - on med Blood Transmitted Disease: No Hx Hepatitis: No Hx Cirrhosis: No Hx Anemia: No Hx Blood Disorders: No - Reproduction : No Is Patient Lactating: No Hx Hysterectomy: No Hx Tubal Ligation: No Are You Post Menopause: Yes - Genitourinary Hx Renal Disease: No - Musculoskeletal Hx Arthritis: Yes Hx Rheumatoid Arthritis: No Hx Gout: No Recent Onset of an Orthopedic Problem: No - Endocrine Hx Diabetes: No - prediabetic Thyroid Disease: No Hx Steroid Therapy: No - Psycho/Social Hx Substance Use: No Hx Alcohol Use: Yes - occ Hx Anxiety: No Hx Depression: No Mental Illness: No Hx Dementia: No - Miscellaneous Hx Cancer: No Recent Exposure to Contagious Disease: No Active MRSA: No Hx of C-Diff: No Any Loose Teeth: No Allergies No Known Allergies Allergy (Verified 06/23/19 07:42) - Discharge Is Pt Admitted From a Skilled Nursing, or a [facility]: No Who Could Help: family After D/C, Where Do you Plan to Go: Return Home - From the PAT History Number of Risk Factors: 2 - Physical Exam Vitals/I&O's: Body Mass Index (BMI) 34.5 General: Alert, Oriented x3, Cooperative, No apparent distress HEENT: Atraumatic Lungs: Normal air movement Cardiovascular: Regular rate Abdomen: Soft, Non Tender, Non-Distended Extremities: No clubbing, No cyanosis, No edema Neurological: Cranial nerves II-XII grossly intact Psych/Mental Status: Normal Affect Assessment/Plan All Active Problems (Last Reviewed 05/28/19 @ 16:18 by Juhi Baum) Maxillary sinusitis, acute (Acute) Nonrheumatic mitral valve regurgitation (Acute) Nonrheumatic mitral (valve) prolapse (Acute) Premature ventricular contraction (Acute) Premature atrial contractions (Acute) Spasm of back muscles (Acute) Otitis media (Acute) Bronchitis (Acute) Sinusitis (Acute) 69-year-old female for screening for colon cancer Surgery Risks - Colonoscopy I discussed with the patient the risks of the procedure: Yes Risks Include but are not Limited To: Risks include but are not limited to: Bleeding, perforation requiring further surgery, inability to complete colonoscopy requiring barium enema. Patient had no further questions this time
[2019-06-23 07:43] VITALS: BP 130/68; PULSE 64; RESP 16; TEMP 36.8; O2SAT 96; BMI 33.3
[2019-06-23] MEDS: Lactated Ringers 1,000 ML 100 ML IV (07:51)
[2019-06-23 08:40] VITALS: BP 130/68; BP 93/53; PULSE 68; RESP 16; TEMP 36.3; O2SAT 93
[2019-06-23 08:45] VITALS: BP 105/38; BP 130/68; PULSE 65; RESP 16; O2SAT 95
--- NOTE | 2019-06-23 08:46 | OP.COLON_ITS ---
Patient Name: Ina Cheney Procedure Date: 06/23/2019 8:06 AM Date of : 1950 Age: 69 Procedure: Colonoscopy Indications: Screening for colorectal malignant neoplasm Providers: Amparo Stark MD Referring MD: Rupali Rizo Medicines: Monitored Anesthesia Care Patient Profile: Last Colonoscopy: 10 years ago. Complications: No immediate complications. Procedure: Pre-Anesthesia Assessment: - Prior to the procedure, a History and Physical was performed, and patient medications and allergies were reviewed. The patient's tolerance of previous anesthesia was also reviewed. The risks and benefits of the procedure and the sedation options and risks were discussed with the patient. All questions were answered, and informed consent was obtained. Prior Anticoagulants: The patient has taken no previous anticoagulant or antiplatelet agents. ASA Grade Assessment: III - A patient with severe systemic disease. After reviewing the risks and benefits, the patient was deemed in satisfactory condition to undergo the procedure. After I obtained informed consent, the scope was passed under direct vision. Throughout the procedure, the patient's blood pressure, pulse, and oxygen saturations were monitored continuously. The pediatric colonoscope was introduced through the anus and advanced to the cecum, identified by the appendiceal orifice, ileocecal valve and palpation. The colonoscopy was technically difficult and complex due to significant looping. Successful completion of the procedure was aided by applying abdominal pressure. Scope In: 8:10:57 AM Scope Withdrawal Time 0 hours 7 minutes 11 seconds Scope Out: 8:36:12 AM Total Procedure Duration Time 0 hours 25 minutes 15 seconds Findings: Hemorrhoids were found on perianal exam. Multiple small and large-mouthed diverticula were found in the sigmoid colon. Internal hemorrhoids were found during digital exam. The hemorrhoids were Grade I (internal hemorrhoids that do not prolapse). The exam was otherwise without abnormality. Impression: - Hemorrhoids found on perianal exam. - Diverticulosis in the sigmoid colon. - Internal hemorrhoids. - The examination was otherwise normal. - No specimens collected. Recommendation: - Discharge patient to home. - High fiber diet. - Continue present medications. - Repeat colonoscopy in 10 years for screening purposes. Procedure Code(s): --- Professional --- G0121, PT, Colorectal cancer screening; colonoscopy on individual not meeting criteria for high risk Diagnosis Code(s): --- Professional --- Z12.11, Encounter for screening for malignant neoplasm of colon K64.0, First degree hemorrhoids K57.30, Diverticulosis of large intestine without perforation or abscess without bleeding CPT copyright 2017 [employer] [place] [employer]. All rights reserved. The codes documented in this report are preliminary and upon automobile service station mechanic review may be revised to meet current compliance requirements. MD Amparo Anderson MD 06/23/2019 8:45:39 AM This report has been signed electronically. Number of Addenda: 0 Note Initiated On: 06/23/2019 8:06 AM
--- NOTE | 2019-06-23 08:47 | OP.CCLET_ITS ---
06/23/2019 Rupali Rizo [address] [place] [address] Re : Colonoscopy procedure for [facility] Dear Dr. Rizo This procedure was performed on Sunday, June 23, 2019. My impressions and recommendations are as follows: Impressions : - Hemorrhoids found on perianal exam. - Diverticulosis in the sigmoid colon. - Internal hemorrhoids. - The examination was otherwise normal. - No specimens collected. Recommendations : - Discharge patient to home. - High fiber diet. - Continue present medications. - Repeat colonoscopy in 10 years for screening purposes. My findings are described in the full procedure note, which is enclosed. If I can be of further assistance, please feel free to contact me at Doctor phone number(s): , Work: . Sincerely, MD Amparo Anderson MD 06/23/2019 8:45:39 AM This report has been signed electronically.
[2019-06-23 08:50] VITALS: BP 113/61; BP 130/68; PULSE 63; RESP 16; O2SAT 97
[2019-06-23 08:55] VITALS: BP 108/51; BP 130/68; PULSE 62; RESP 16; TEMP 36.3; O2SAT 96
[2019-06-23 09:14] VITALS: BP 130/68
== END 2019-06-23 09:31 | disposition home or self-care (01) ==
LOC: EN 07:25 → AC 07:28
PROVIDERS: Family Provider Family Medicine; PCP Family Medicine; Referring Provider Family Medicine; Visit Provider Surgery
PROC: 0DJD8ZZ Inspection of Lower Intestinal Tract, Via Natural or Artificial Opening Endoscopic (ICD-10-PCS; CPT 45378; principal; 2019-06-23 08:40)
DX: Z12.11 Encounter for screening for malignant neoplasm of colon (principal); E78.00 Pure hypercholesterolemia, unspecified; I10 Essential (primary) hypertension; I25.10 Atherosclerotic heart disease of native coronary artery without angina pectoris; I34.1 Nonrheumatic mitral (valve) prolapse; I34.0 Nonrheumatic mitral (valve) insufficiency; J45.909 Unspecified asthma, uncomplicated; K57.30 Diverticulosis of large intestine without perforation or abscess without bleeding; K64.0 First degree hemorrhoids
CPT/HCPCS: 45378; J7120; J2405

== ENCOUNTER 2019-07-21 09:15 | Outpatient (RCR) | payer OTHER, SELFPAY ==
[2019-06-24 10:27] VITALS: BMI 33.3
== END 2019-07-24 23:59 ==
LOC: NS 09:15
PROVIDERS: Family Provider Family Medicine; PCP Family Medicine; Visit Provider Family Medicine
DX: Z71.3 Dietary counseling and surveillance (principal); E66.9 Obesity, unspecified; R73.02 Impaired glucose tolerance (oral); Z68.34 Body mass index [BMI] 34.0-34.9, adult
CPT/HCPCS: 97803

== ENCOUNTER 2019-08-18 10:00 | Outpatient (RCR) | payer OTHER, SELFPAY ==
[2019-06-24 10:27] VITALS: BMI 33.3
== END 2019-08-24 23:59 ==
LOC: NS 10:00
PROVIDERS: Family Provider Family Medicine; PCP Family Medicine; Visit Provider Family Medicine
DX: Z71.3 Dietary counseling and surveillance (principal); E66.9 Obesity, unspecified; R73.02 Impaired glucose tolerance (oral); Z68.34 Body mass index [BMI] 34.0-34.9, adult
CPT/HCPCS: 97803

== ENCOUNTER 2019-09-22 12:00 | Outpatient (RCR) | payer OTHER, SELFPAY ==
[2019-06-24 10:27] VITALS: BMI 33.3
== END 2019-09-23 23:59 ==
LOC: NS 12:00
PROVIDERS: Family Provider Family Medicine; PCP Family Medicine; Visit Provider Family Medicine
DX: Z71.3 Dietary counseling and surveillance (principal); E66.9 Obesity, unspecified; R73.02 Impaired glucose tolerance (oral); Z68.34 Body mass index [BMI] 34.0-34.9, adult
CPT/HCPCS: 97803

== ENCOUNTER 2019-10-20 15:00 | Outpatient (RCR) | payer OTHER, SELFPAY ==
[2019-09-08 15:17] VITALS: BMI 33.3
== END 2019-10-24 23:59 ==
LOC: NS 15:00
PROVIDERS: Family Provider Family Medicine; PCP Family Medicine; Visit Provider Family Medicine
DX: Z71.3 Dietary counseling and surveillance (principal); E66.9 Obesity, unspecified; R73.02 Impaired glucose tolerance (oral); Z68.34 Body mass index [BMI] 34.0-34.9, adult
CPT/HCPCS: 97803

== ENCOUNTER 2019-11-03 15:27 | Outpatient (RCR) | payer OTHER, SELFPAY ==
[2019-09-08 15:17] VITALS: BMI 33.3
== END 2019-11-23 23:59 ==
LOC: NS 15:27
PROVIDERS: Family Provider Family Medicine; PCP Family Medicine; Visit Provider Family Medicine
DX: Z71.3 Dietary counseling and surveillance (principal); E66.9 Obesity, unspecified; R73.02 Impaired glucose tolerance (oral); Z68.34 Body mass index [BMI] 34.0-34.9, adult
CPT/HCPCS: 97803

== ENCOUNTER 2019-12-15 09:30 | Outpatient (RCR) | payer OTHER, SELFPAY ==
[2019-09-08 15:17] VITALS: BMI 33.3
== END 2019-12-24 23:59 ==
LOC: NS 09:30
PROVIDERS: Family Provider Family Medicine; PCP Family Medicine; Visit Provider Family Medicine
DX: Z71.3 Dietary counseling and surveillance (principal); E66.9 Obesity, unspecified; R73.02 Impaired glucose tolerance (oral); Z68.34 Body mass index [BMI] 34.0-34.9, adult
CPT/HCPCS: 97803

== ENCOUNTER 2020-01-12 09:30 | Outpatient (RCR) | payer OTHER, SELFPAY ==
[2019-09-08 15:17] VITALS: BMI 33.3
== END 2020-01-24 23:59 ==
LOC: NS 09:30
PROVIDERS: Family Provider Family Medicine; PCP Family Medicine; Visit Provider Family Medicine
DX: Z71.3 Dietary counseling and surveillance (principal); E66.9 Obesity, unspecified; R73.02 Impaired glucose tolerance (oral); Z68.34 Body mass index [BMI] 34.0-34.9, adult
CPT/HCPCS: 97803

== ENCOUNTER 2020-01-26 08:29 | Outpatient (RCR) | payer OTHER, SELFPAY ==
[2020-01-12 10:18] VITALS: BMI 33.3
== END 2020-02-23 23:59 ==
LOC: NS 08:29
PROVIDERS: Family Provider Family Medicine; PCP Family Medicine; Visit Provider Family Medicine
DX: Z71.3 Dietary counseling and surveillance (principal); E66.9 Obesity, unspecified; R73.02 Impaired glucose tolerance (oral); Z68.34 Body mass index [BMI] 34.0-34.9, adult
CPT/HCPCS: 97803

== ENCOUNTER 2020-03-15 11:00 | Outpatient (RCR) | payer OTHER, SELFPAY ==
[2020-01-12 10:18] VITALS: BMI 33.3
== END 2020-03-25 23:59 ==
LOC: NS 11:00
PROVIDERS: Family Provider Family Medicine; PCP Family Medicine; Visit Provider Family Medicine
DX: Z71.3 Dietary counseling and surveillance (principal); E66.9 Obesity, unspecified; R73.02 Impaired glucose tolerance (oral); Z68.34 Body mass index [BMI] 34.0-34.9, adult
CPT/HCPCS: 97803

== ENCOUNTER 2020-04-12 11:30 | Outpatient (RCR) | payer OTHER, SELFPAY ==
[2020-01-12 10:18] VITALS: BMI 33.3
== END 2020-04-12 14:32 | disposition home or self-care (01) ==
LOC: NS 11:30
PROVIDERS: Family Provider Family Medicine; PCP Family Medicine; Visit Provider Family Medicine
DX: Z71.3 Dietary counseling and surveillance (principal); E66.9 Obesity, unspecified; R73.02 Impaired glucose tolerance (oral); Z68.34 Body mass index [BMI] 34.0-34.9, adult
CPT/HCPCS: 97803

== ENCOUNTER → 2020-05-15 16:10 | Outpatient (CLI) | payer OTHER, SELFPAY ==
[2020-01-12 10:18] VITALS: BMI 33.3
[2020-05-12 09:48] VITALS: BMI 34.2
--- NOTE | 2020-05-15 16:11 | BI_ITS ---
MAMMOGRAPHY - BILATERAL SCREENING REASON FOR EXAM: Female, 70 years old. Routine annual screening examination. PERTINENT HISTORY: Mother with breast cancer. Remote left excisional breast biopsy. TECHNIQUE: Digital bilateral breast ta (3D mammographic acquisition) in the CC and MLO projections. 2-D mediolateral oblique (MLO) and craniocaudad (CC) views of both breasts were obtained. CAD: Full Field Digital Mammography with Computer Added Detection was performed. COMPARISON: Comparison is made with prior study dated 05/14/2019 and 05/13/2018. FINDINGS: Breast Composition: The breasts are almost entirely fatty. There are no dominant masses or suspicious calcifications. Stable small benign-appearing bilateral axillary lymph nodes. No other significant abnormalities are identified. There has been no significant change since the prior study. BI/SCREEN MAMM (CAD) W/TA BILAT IMPRESSION: Stable bilateral screening mammogram. Yearly follow-up mammogram recommended. (A) ASSESSMENT CATEGORY: BIRADS Category 2: Benign. A letter regarding these results will be sent to the patient by the facility within 30 days. Approximately 10% of breast cancers are not detected by mammography. A normal mammogram should not delay biopsy of a clinically suspicious abnormality. [id number] Electronically Signed: Mk Harris, at 8:17 EST , Service support ,
== END ==
PROVIDERS: PCP Family Medicine; Referring Provider Family Medicine; Visit Provider Family Medicine
DX: Z12.31 Encounter for screening mammogram for malignant neoplasm of breast (principal); Z80.3 Family history of malignant neoplasm of breast
CPT/HCPCS: 77063; 77067

== ENCOUNTER → 2020-08-08 09:21 | Outpatient (CLI) | payer OTHER, SELFPAY ==
[2020-05-12 09:48] VITALS: BMI 34.2
[2020-08-08 10:22] LABS: ALB/GLOB Ratio 1.2 RATIO (0.9-2.4); AST(SGOT) 17 U/L (15-37); Alanine Aminotransfer ALT/SGPT 24 U/L (13-56); Albumin, Serum 3.8 g/dL (3.2-5.0); Alkaline Phosphatase 89 U/L (45-117); Anion Gap 3 (5-15); BUN 17 mg/dL (7-18); Calcium,Total 9.4 mg/dL (8.5-10.1); Chloride 107 mmol/L (98-107); EST Glomerular Filtration Rate 58 mL/min (>60); Est Glom Filt Rate - Afr Amer 71 mL/min (>60); Globulin 3.2 g/dL (2.2-4.2); Glucose 124 mg/dL (74-106); Potassium 4.4 mmol/L (3.5-5.1); Sodium Level 140 mmol/L (136-145); Uric Acid 6.4 mg/dL (2.6-6.0)
[2020-08-08 10:41] LABS: Vitamin B12 542 pg/mL (211-911)
== END ==
PROVIDERS: PCP Family Medicine; Referring Provider Family Medicine; Visit Provider Family Medicine
DX: R73.02 Impaired glucose tolerance (oral) (principal); E79.0 Hyperuricemia without signs of inflammatory arthritis and tophaceous disease; E53.8 Deficiency of other specified B group vitamins; Z51.81 Encounter for therapeutic drug level monitoring
CPT/HCPCS: 36415; 80053; 82607; 83036; 84550

== ENCOUNTER → 2020-12-20 07:07 | Outpatient (CLI) | payer OTHER, SELFPAY ==
[2020-11-17 10:09] VITALS: BMI 34.7
[2020-12-14 07:46] LABS: Creatinine, Serum 0.98 mg/dL (0.55-1.02); EST Glomerular Filtration Rate 59 mL/min (>60); Est Glom Filt Rate - Afr Amer 72 mL/min (>60)
--- NOTE | 2020-12-20 13:56 | CT_ITS ---
STUDY: CTA HEAD AND NECK WITH CONTRAST REASON FOR EXAM: Female, 70 years old. Carotid stenosis. RADIATION DOSAGE (If Supplied By Facility): CTDIvol = ( 28.43 ) mGy, DLP = ( 1510.05 ) mGycm TECHNIQUE: CT angiography was performed with a multi-detector CT scanner. Data acquisition was obtained from the skull base through the vertex following intravenous administration of IV 100mL Isovue-370. MIP images were reconstructed from the axial data set. Post-processing of the angiographic images was performed, with multiplanar reformation and 3D reconstruction. Individualized dose optimization techniques were used for this CT. COMPARISON: No relevant priors. FINDINGS: Normal bilateral petrous carotid arteries. There is calcified plaque formation of the right cavernous carotid artery, without a cross-sectional luminal stenosis. Normal left cavernous carotid artery with a normal supraclinoid bifurcation. Normal right A1 segments of the anterior cerebral artery. Normal left A1 segments of the anterior cerebral artery. Normal intact anterior communicating artery (ACOM). Normal bilateral A2 segments of the anterior cerebral arteries. Normal right M1 and M2 segments of the middle cerebral arteries, with a normal M1 bifurcation. Normal left M1 and M2 segments of the middle cerebral arteries, with a normal M1 bifurcation. Normal right posterior communicating artery (PCOM). There is non-visualization of the left posterior communicating artery (PCOM). Normal bilateral vertebral arteries. Normal basilar artery with a normal basilar bifurcation. The visualized bilateral superior cerebellar (SCA) arteries are normal. Normal P1, P2 and visualized P3 segments of the left posterior cerebral artery. The P1 segment of the right posterior cerebral artery is absent. The P2 and visualized P3 segments are supplied via the patent posterior communicating artery. There is no demonstrated aneurysm of the [place]. There is chronic involutional changes of the brain without acute intracranial hemorrhage or infarct. AORTIC ARCH: Atherosclerotic changes of the aortic arch without aneurysm or dissection. Normal origins of the brachiocephalic, left common carotid, and left subclavian arteries. RIGHT CAROTID ARTERIES: Normal right common carotid artery (CCA). Marked atherosclerotic plaque at the carotid bifurcation extending into the carotid bulb. Approximate 50 -70% stenosis. Normal origin of the right internal carotid (ICA) artery without a hemodynamically significant stenosis. Tortuosity visualized cervical portion of the right internal carotid artery. Normal origin of the right external carotid artery (ECA). LEFT CAROTID ARTERIES: Normal left common carotid artery (CCA). Atherosclerotic changes at the carotid bifurcation and carotid bulb without significant stenosis. Normal origin of the left internal carotid (ICA) artery without a hemodynamically significant stenosis. Normal visualized cervical portion of the left internal carotid artery. Normal origin of the left external carotid artery (ECA). VERTEBRAL ARTERIES: Normal bilateral vertebral arteries. CT/CTA Head AND Neck W/ Contrast IMPRESSION: 1. 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 The distal vessels supplied via the patent posterior communicating artery. 2. Otherwise normal [place]. 3. 50-70% stenosis of the right carotid bulb and bifurcation. 4. Hemodynamically insignificant left carotid plaque. Electronically Signed: Edson Murillo DO at 16:38 EDT Tel [phone], Service support ,
== END ==
PROVIDERS: PCP Family Medicine; Referring Provider Nurse Practitioner Primary Care; Visit Provider Nurse Practitioner Primary Care
DX: I65.23 Occlusion and stenosis of bilateral carotid arteries (principal); Z13.6 Encounter for screening for cardiovascular disorders
CPT/HCPCS: 36415; 70496; 70498; 82565; Q9967

== ENCOUNTER 2021-06-13 12:54 | Outpatient (CLI) | payer OTHER, SELFPAY ==
--- NOTE | 2021-06-13 12:56 | BI_ITS ---
MAMMOGRAPHY - BILATERAL SCREENING REASON FOR EXAM: Female, 71 years old. Routine annual screening examination. PERTINENT HISTORY: Mother with breast cancer. TECHNIQUE: Digital bilateral breast ta (3D mammographic acquisition) in the CC and MLO projections. 2-D mediolateral oblique (MLO) and craniocaudad (CC) views of both breasts were obtained. CAD: Full Field Digital Mammography with Computer Added Detection was performed. COMPARISON: Comparison is made with prior study dated 05/15/2020 and 05/14/2019. FINDINGS: Breast Composition: The breasts are almost entirely fatty. There are no dominant masses or suspicious calcifications. Stable small benign-appearing bilateral axillary lymph nodes. No other significant abnormalities are identified. There has been no significant change since the prior study. BI/SCRN MAMM (CAD)W/TA BILAT IMPRESSION: Stable bilateral screening mammogram. Yearly follow-up mammogram recommended. (A) ASSESSMENT CATEGORY: BIRADS Category 2: Benign. A letter regarding these results will be sent to the patient by the facility within 30 days. Approximately 10% of breast cancers are not detected by mammography. A normal mammogram should not delay biopsy of a clinically suspicious abnormality. [id number] Electronically Signed: Mk Harris MD at 13:38 EST , Service support ,
== END 2021-06-13 23:59 | disposition short-term general hospital (02) ==
PROVIDERS: PCP Family Medicine; Referring Provider Family Medicine; Visit Provider Family Medicine
DX: Z12.31 Encounter for screening mammogram for malignant neoplasm of breast (principal); Z80.3 Family history of malignant neoplasm of breast
CPT/HCPCS: 77063; 77067

== ENCOUNTER → 2021-11-13 | Outpatient (CLI) | payer OTHER, SELFPAY ==
--- NOTE | 2021-11-13 07:51 | ECHOD_ITS ---
Reason For Study: Hypertrophic Obstructive CMP Procedure This was a 2D Doppler, Color Flow transthoracic echocardiogram. The exam was of adequate technical quality. Exam performed in department. Left Ventricle Normal LV size. Severe concentric left ventricular hypertrophy. Left ventricular systolic function is normal. The estimated ejection fraction is 65 %. No regional wall motion abnormalities noted. Right Ventricle Normal RV size. Normal systolic function. Atria Normal left atrium. Normal right atrium. No doppler evidence for ASD. Mitral Valve There is moderate to severe mitral annular calcification. Extension of the mitral annular calcification onto the posterior mitral valve leaflet. Mild diffuse mitral valve thickening. Chordal systolic anterior motion of the mitral valve. Moderate (2+) mitral valve insufficiency. Tricuspid Valve Normal tricuspid valve. Mild tricuspid valve insufficiency. Right ventricular systolic pressure estimated to be 38 mmHg. Aortic Valve Trisinus/trileaflet aortic valve. Normal aortic valve. Pulmonic Valve The pulmonic valve is not well visualized. Trivial pulmonic valve insufficiency. Great Vessels Normal sized aortic root. Pericardium/Pleural No pericardial effusion. MMode/2D Measurements & Calculations LVIDd: 4.3 cm IVSd: 1.9 cm Ao root diam: 2.9 cm LVIDs: 2.0 cm LVPWd: 1.6 cm LA dimension: 4.3 cm RVDd: 3.7 cm FS: 54.2 % LAV(MOD-bp): 81.1 ml LA A4 area: 23.0 cm2 RA A4 area: 17.9 cm2 LAV(MOD-bp) Indexed: 41.0 ml/m2 LAV(MOD-sp2): 75.9 ml LAV(MOD-sp4): 71.2 ml Time Measurements MV dec time: 0.18 sec Doppler Measurements & Calculations MV E max deshaun: 132.3 cm/sec Lat Peak E' Deshaun: 4.5 cm/sec Med Peak E' Deshaun: 4.6 cm/sec MV A max deshaun: 114.8 cm/sec E/E' lat: 29.7 E/E' med: 28.9 MV E/A: 1.2 MV V2 max: 151.2 cm/sec MV P1/2t max deshaun: 151.2 cm/sec Ao V2 max: 164.9 cm/sec MV max P.1 mmHg MV P1/2t: 103.0 msec Ao max P.9 mmHg MV V2 mean: 82.4 cm/sec MV dec slope: 429.9 cm/sec2 MV mean P.2 mmHg MVA(P1/2t): 2.1 cm2 MV V2 VTI: 49.8 cm LV V1 max: 154.2 cm/sec MR max deshaun: 556.8 cm/sec PA V2 max: 84.7 cm/sec LV V1 max P.5 mmHg MR max P.0 mmHg MR mean deshaun: 434.5 cm/sec MR mean P.4 mmHg MR VTI: 205.3 cm TR max deshaun: 294.9 cm/sec TR max P.8 mmHg ECHO/Echo Complete Interpretation Summary Left ventricular systolic function is normal. The estimated ejection fraction is 65 %. Severe concentric left ventricular hypertrophy. There is moderate to severe mitral annular calcification. Extension of the mitral annular calcification onto the posterior mitral valve l eaflet. Mild diffuse mitral valve thickening. Chordal systolic anterior motion of the mitral valve. Moderate (2+) mitral valve insufficiency. Mild tricuspid valve insufficiency. Trivial pulmonic valve insufficiency. Right ventricular systolic pressure estimated to be 38 mmHg. Transmitral diastolic flow velocities suggest diastolic dysfunction (pseudonorm al pattern). Ordering Physician: Feliz Coronado Referring Physician: Rupali Rizo Performed By: Russell Tai RCS
== END | disposition home or self-care (01) ==
PROVIDERS: PCP Family Medicine; Referring Provider Internal Medicine Cardiovascular Disease; Visit Provider Internal Medicine Cardiovascular Disease
DX: I42.1 Obstructive hypertrophic cardiomyopathy (principal); I49.1 Atrial premature depolarization; I34.1 Nonrheumatic mitral (valve) prolapse; I49.3 Ventricular premature depolarization; I34.0 Nonrheumatic mitral (valve) insufficiency; I25.10 Atherosclerotic heart disease of native coronary artery without angina pectoris
CPT/HCPCS: 93306

== ENCOUNTER → 2021-11-29 | Outpatient (CLI) | payer OTHER, SELFPAY ==
--- NOTE | 2021-11-29 16:35 | CT_ITS ---
STUDY: CTA NECK WITH CONTRAST REASON FOR EXAM: Female, 71 years old. CAROTID STENOSIS RADIATION DOSAGE (If Supplied By Facility): CTDIvol = ( 20.69 ) mGy, DLP = ( 697.08 ) mGycm TECHNIQUE: CT angiography with multi-detector data acquisition was performed from the aortic arch to the skull base following intravenous administration of IV 100mL Isovue-370. MIP images were reconstructed from the axial data set. Post-processing of the angiographic images was performed, with multiplanar reformation and 3D reconstruction. Individualized dose optimization techniques were used for this CT. COMPARISON: CT angiography of the head and neck 12/20/2020. FINDINGS: AORTIC ARCH: Normal visualized aortic arch. Normal origins of the brachiocephalic, left common carotid, and left subclavian arteries. RIGHT CAROTID ARTERIES: Normal right common carotid artery (CCA). Normal right common carotid bulb. There is 50% luminal narrowing of the proximal internal carotid artery at the level of the carotid bulb. This isn''t appreciably changed compared to prior exam year prior, 12/20/2020. Normal origin of the right external carotid artery (ECA). LEFT CAROTID ARTERIES: Normal left common carotid artery (CCA). Normal left common carotid bulb. There is 70% stenosis proximal internal carotid artery at the level of the carotid bulb, not appreciably changed compared to prior exam. Normal origin of the left external carotid artery (ECA). VERTEBRAL ARTERIES: 30% stenosis proximal right vertebral artery. Short segment of the proximal left vertebral artery is not visualized due to streak artifact from adjacent hypodensity venous contrast from retrograde flow. Visualized intracranial arteries included in [id number] show no large vessel occlusion or high-grade stenosis. No aneurysm. Note of. Anatomy with origin right posterior cerebral artery. Highly tortuous left posterior cerebral artery. CT/CTA Neck W/WO Contrast IMPRESSION: Right and left carotid bulb stenosis measuring 50% on the right and 70% on the left. 30% stenosis proximal right vertebral artery. Electronically Signed: Donato Birmingham DO at 22:06 EDT ,
[2021-11-29 17:10] LABS: CREATININE FINGERSTICK < 0.9 mg/dL (0.55-1.02); EGFR FINGERSTICK > 60.0000 mL/min (>60)
== END | disposition home or self-care (01) ==
LOC: CT 16:32
PROVIDERS: PCP Family Medicine; Referring Provider Nurse Practitioner Primary Care; Visit Provider Nurse Practitioner Primary Care
DX: I65.23 Occlusion and stenosis of bilateral carotid arteries (principal); I65.01 Occlusion and stenosis of right vertebral artery; Z13.6 Encounter for screening for cardiovascular disorders
CPT/HCPCS: 70498; Q9967

== ENCOUNTER → 2022-02-27 | Outpatient (CLI) | payer OTHER, SELFPAY ==
[2022-02-27 09:44] LABS: Hemoglobin A1c 6.1 % (3.8-5.6)
== END | disposition home or self-care (01) ==
LOC: LAB 07:16
PROVIDERS: PCP Family Medicine; Referring Provider Family Medicine; Visit Provider Family Medicine
DX: R73.02 Impaired glucose tolerance (oral) (principal)
CPT/HCPCS: 36415; 83036

== ENCOUNTER 2022-04-28 09:32 | Emergency (ER) | payer OTHER, SELFPAY ==
[2022-04-28 09:35] VITALS: BP 150/67; PULSE 88; RESP 18; TEMP 37.5; O2SAT 95; BMI 33.9
[2022-04-28 09:36] VITALS: BP 150/67; PULSE 88; RESP 18; TEMP 37.5; O2SAT 95
[2022-04-28 10:00] VITALS: O2SAT 96
--- NOTE | 2022-04-28 10:51 | RAD_ITS ---
STUDY: X-RAY CHEST REASON FOR EXAM: Female, 71 years old. Cough TECHNIQUE: PA and lateral views of the chest. COMPARISON: February 10, 2019 chest x-ray FINDINGS: The lungs are clear and expanded. There is no demonstrated pleural abnormality. Normal size heart. Normal mediastinum and chelsea. Normal visualized pulmonary arteries. There is atherosclerotic calcification of the aortic arch with tortuosity. There are diffuse degenerative changes of the visualized thoracic spine. Normal visualized ribs, clavicles, and shoulders. There is no demonstrated abnormality of the visualized soft tissue structures of the upper abdomen. RAD/Chest PA and Lateral IMPRESSION: No demonstrated acute cardiopulmonary process. Electronically Signed: Magda Alegre MD at 11:15 EST ,
--- NOTE | 2022-04-28 10:52 | EX.ED.DYSGE1 ---
HPI History of Present Illness Chief Complaint: Cough Informant: patient Narrative Narrative: 71-year-old female states that she has had a cough for 1 month. She states that she is gone to the [facility] twice and they have done nothing for her. When asked specifically what they have done for her they gave her Tessalon Amilcar and just a few days ago prescribed her amoxicillin 1000 mg twice a day.. She states that she has family coming into town on Friday and she needs to know what this is and how to get rid of it before they come. She denies any fevers. The cough is occasionally productive. She notes a constant runny nose. She denies any indigestion or reflux history. She states the other day she was laying flat in a large amount of thick yellow mucus came out of her right sinus and into her throat. No vomiting or diarrhea. She states that her family doctor is booked until June and there is no way that she can be seen. I did explain to the patient that this is the emergency department and she is now asking for a third opinion of us condition that is going on for 30 days so its a little bit outside of our normal [facility]. 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 Bilateral carotid artery stenosis Diverticulosis HTN (hypertension) Hyperlipidemia Hypertrophic obstructive cardiomyopathy Nonrheumatic mitral (valve) prolapse Nonrheumatic mitral valve regurgitation Premature atrial contractions Premature ventricular contraction Home Medications ezetimibe 10 mg tablet 10 mg PO DAILY 02/20/14 [History Last Taken Unknown] aspirin 81 mg tablet,delayed release (Adult Low Dose Aspirin) 81 mg PO QDAY #30 tabs 01/05/18 [Rx Last Taken Unknown] metoprolol succinate 25 mg tablet,extended release 24 hr 25 mg PO BID #60 tabs 01/01/19 [Rx Last Taken Unknown] amoxicillin 500 mg capsule 1,000 mg PO BID 14 days #56 caps 04/25/22 [Rx Last Taken Unknown] benzonatate 200 mg capsule 200 mg PO TID PRN cough #20 caps 04/25/22 [Rx Last Taken Unknown] amoxicillin 875 mg-potassium clavulanate 125 mg tablet 875 mg PO Q12H #20 TABLETS 04/28/22 [Rx Last Taken Unknown] prednisone 20 mg tablet 60 mg PO DAILY #15 TABLETS 04/28/22 [Rx Last Taken Unknown] Allergy/AdvReac Type Severity Reaction Status Date / Time No Known Allergies Allergy Verified 04/28/22 09:34 Family History Father CAD (coronary artery disease) Myocardial infarction Hx of CABG Mother Hypertension Brother CAD (coronary artery disease) Myocardial infarction Brother CAD (coronary artery disease) Myocardial infarction Sister Diabetes Other Heart disease Surgical History History of back surgery History of breast biopsy History of carpal tunnel surgery History of tonsillectomy Social History Smoking Status: Never smoker alcohol intake: current alcohol intake frequency: holidays/special occasions only substance use type: does not use caffeine: Yes Type: coffee Number of servings: 1 ROS ROS ED Constitutional Constitutional ED: Denies chills or weight loss Eyes Eyes: Denies change in vision or diplopia ENT ENT ED: Reports rhinorrhea; Denies ear pain or sore throat Cardiovascular Cardiovascular: Denies chest pain, orthopnea, palpitations or racing heartbeat Respiratory/Chest Respiratory/Chest: Reports cough; Denies dyspnea or orthopnea Gastrointestinal Gastrointestinal: Denies abdominal pain, diarrhea, nausea or vomiting Genitourinary Genitourinary ED: Denies dysuria, hematuria or urinary frequency Musculoskeletal Musculoskeletal: Denies arthralgias or myalgias Integumentary Denies abscess or rash Neurologic Neurologic: Denies headache(s) or weakness Psychiatric Psychiatric: Denies anxiety, depression, suicidal ideation or suicidal thoughts Endocrine Endocrinology: Denies polydipsia, polyphagia or polyuria Allergic/Immunologic Allergic/Immunologic ED: Denies mouth swelling, tongue swelling or urticaria EXAM Physical Exam Const Vital Signs: 04/28/22 09:35 04/28/22 09:36 04/28/22 10:00 Temperature 99.5 F H 99.5 F H Temperature Source Temporal Temporal Pulse Rate 88 88 Respiratory Rate 18 18 Respiratory Effort Normal Blood Pressure 150/67 H 150/67 H Blood Pressure Mean 94 94 Pulse Ox 95 95 Oxygen Delivery Method Room Air Room Air Room Air Positive well nourished and well developed General Appearance ED: well developed HEENT Reports normocephalic, head/scalp atraumatic and moist mucous membranes HEENT Narrative: Rhinorrhea Eyes PERRL and EOMs intact bilaterally Neck no lymphadenopathy, supple and no JVD Resp normal respiratory effort and clear to auscultation bilaterally Cardio regular rate, regular rhythm and no murmurs GI normal to inspection, nondistended, normoactive bowel sounds and non-tender Palpation: soft Back/Spine no CVA tenderness and normal ROM Extremity normal to inspection General Extremety ED: Negative for edema General Extremity: Negative for edema Neuro oriented x3 and CN's II-XII intact bilaterally Sensorium / Orientation: alert Motor Exam: strength 5/5 throughout Psych mental status grossly normal Mood & Affect: Negative for depressed or tearful Skin no rashes or lesions noted and no wounds MDM MDM MDM Narrative Medical decision making narrative: My interpretation of the chest x-ray is no acute process and radiology concurs. We will place the patient on albuterol MDI and will have respiratory teach her how to use it as well as some steroids. Also change her to Augmentin Radiography Diagnostic Testing: Clinical Impression(s) from Imaging Studies Chest X-Ray 04/28/22 10:51 IMPRESSION: No demonstrated acute cardiopulmonary process. Electronically Signed: Magda Alegre MD at 11:15 EST Reading Location ID and State[facility] [place] Tel , Service support , Discharge Plan Triage Chief Complaint: Cough ED Provider: Diego Finch Dx/Rx/DC Orders Clinical Impression: Bronchitis Instructions: ED Bronchitis with Wheezing (Adult) Prescriptions: New prednisone 20 mg tablet 60 mg PO DAILY Qty: 15 0RF amoxicillin-pot clavulanate [amoxicillin-pot clavulanate] 875-125 mg tablet 875 mg PO Q12H Qty: 20 0RF No Action aspirin [Adult Low Dose Aspirin] 81 mg tablet,delayed release (DR/EC) 81 mg PO QDAY Qty: 30 0RF amoxicillin 500 mg capsule 1,000 mg PO BID 14 Days Qty: 56 0RF benzonatate 200 mg capsule 200 mg PO TID PRN (Reason: cough) Qty: 20 0RF ezetimibe 10 MG tablet 10 mg PO DAILY metoprolol succinate 25 mg tablet extended release 24 hr 25 mg PO BID Qty: 60 12RF Primary Care Provider: Rupali Rizo Referrals: Rupali Rizo DO [Primary Care Provider] - 1 Week if not improving Disposition Disposition: Home, Self Care
[2022-04-28 11:15] VITALS: PULSE 78; RESP 20
[2022-04-28] MEDS: Albuterol Sulfate 8 gm Inhaler (60 puffs) 4 PUFF INHALATION (11:25)
== END 2022-04-28 12:25 | disposition home or self-care (01) ==
PROVIDERS: Emergency Provider Emergency Medicine; PCP Family Medicine; Visit Provider Emergency Medicine
DX: J40 Bronchitis, not specified as acute or chronic (principal); I25.10 Atherosclerotic heart disease of native coronary artery without angina pectoris; E78.5 Hyperlipidemia, unspecified; I10 Essential (primary) hypertension; Z79.52 Long term (current) use of systemic steroids
CPT/HCPCS: 71046; 94640; 99282

== ENCOUNTER → 2022-05-09 | Outpatient (CLI) | payer OTHER, SELFPAY ==
--- NOTE | 2022-05-09 16:11 | RAD_ITS ---
STUDY: X-RAY CHEST REASON FOR EXAM: Female, 72 years old. COUGH TECHNIQUE: PA and lateral views of the chest. COMPARISON: April 28, 2022 chest x-ray FINDINGS: Lung markings are stable. There is a minimal focus of fibrosis in the left lung base. There is no demonstrated pleural abnormality. Normal size heart. Normal mediastinum and chelsea. Normal visualized pulmonary arteries. Normal visualized aortic arch and descending thoracic aorta. There are diffuse degenerative changes of the visualized thoracic spine. Normal visualized ribs, clavicles, and shoulders. There is no demonstrated abnormality of the visualized soft tissue structures of the upper abdomen. RAD/Chest PA and Lateral IMPRESSION: Stable chest. No definitive acute focal infiltrate. Electronically Signed: Magda Alegre MD at 20:03 EST ,
== END | disposition home or self-care (01) ==
LOC: RAD 16:10
PROVIDERS: PCP Family Medicine; Referring Provider Family Medicine; Visit Provider Family Medicine
DX: J20.8 Acute bronchitis due to other specified organisms (principal)
CPT/HCPCS: 71046

== ENCOUNTER → 2022-06-18 | Outpatient (CLI) | payer OTHER, SELFPAY ==
--- NOTE | 2022-06-18 16:18 | BI_ITS ---
MAMMOGRAPHY - BILATERAL SCREENING REASON FOR EXAM: Female, 72 years old. Routine annual screening examination. PERTINENT HISTORY: Mother with breast cancer. Remote left excisional breast biopsy. TECHNIQUE: Digital bilateral breast ta (3D mammographic acquisition) in the CC and MLO projections. 2-D mediolateral oblique (MLO) and craniocaudad (CC) views of both breasts were obtained. CAD: Full Field Digital Mammography with Computer Added Detection was performed. COMPARISON: Comparison is made with prior study dated 06/13/2021 and 05/15/2020. FINDINGS: Breast Composition: The breasts are almost entirely fatty. There are no dominant masses or suspicious calcifications. Stable small benign-appearing bilateral axillary lymph nodes. No other significant abnormalities are identified. There has been no significant change since the prior study. BI/SCRN MAMM (CAD)W/TA BILAT IMPRESSION: Stable bilateral screening mammogram. Yearly follow-up mammogram recommended. (A) ASSESSMENT CATEGORY: BIRADS Category 2: Benign. A letter regarding these results will be sent to the patient by the facility within 30 days. Approximately 10% of breast cancers are not detected by mammography. A normal mammogram should not delay biopsy of a clinically suspicious abnormality. [id number] Electronically Signed: Mk Harris MD at 7:55 EST ,
== END | disposition home or self-care (01) ==
LOC: OPBI 16:17
PROVIDERS: PCP Family Medicine; Referring Provider Family Medicine; Visit Provider Family Medicine
DX: Z12.31 Encounter for screening mammogram for malignant neoplasm of breast (principal); Z80.3 Family history of malignant neoplasm of breast; Z92.89 Personal history of other medical treatment
CPT/HCPCS: 77063; 77067

== ENCOUNTER → 2022-07-23 | Outpatient (CLI) | payer OTHER, SELFPAY ==
--- NOTE | 2022-07-23 11:03 | CDU_ITS ---
Reason For Study: CAROTID STENOSIS Rt. Velocities/BP Lt. Velocities/BP Prox CCA 80.6/14.5 cm/sec. Prox CCA 116.2/21.6 cm/sec. Mid CCA 78.7/15.4 cm/sec. Mid CCA 97.7/21.6 cm/sec. Dist CCA 79.6/19.2 cm/sec. Dist CCA 80.6/16.7 cm/sec. Prox ICA 113.5/30.0 cm/sec. Prox ICA 300.5/69.1 cm/sec. Mid ICA 102.5/30.0 cm/sec. Mid ICA 216.3/41.7 cm/sec. Dist ICA 101.4/31.1 cm/sec. Dist ICA 118.5/27.2 cm/sec. Rt. ICA/CCA = 113.5/78.7=1.44. Lt. ICA/CCA = 300.5/97.7=3.07. Prox ECA 92.9/10.7 cm/sec. Prox ECA 156.3/6.6 cm/sec. Rt. Vert. 66.6/17.1 cm/sec. Lt. Vert. 56.6/16.9 cm/sec. Right Extracranial There is intimal thickening but no significant atherosclerotic plaque noted in the right common carotid artery. There is heterogeneous, irregular atherosclerotic plaque noted in the right internal carotid artery. There is intimal thickening but no significant atherosclerotic plaque noted in the right external carotid artery. Antegrade flow is noted in the right vertebral artery. Left Extracranial There is homogeneous, smooth atherosclerotic plaque noted in the left common carotid artery. There is heterogeneous, irregular atherosclerotic plaque noted in the left internal carotid artery. There is intimal thickening but no significant atherosclerotic plaque noted in the left external carotid artery. Antegrade flow is noted in the left vertebral artery. Procedure Carotid Duplex [id number]. This is a Carotid Duplex examination using B-mode, color flow and specral Doppler. Exam performed in department. VL/Carotid Duplex Ultrasound Interpretation Summary Mild (<50%) stenosis right extracranial internal carotid. Severe (>70%) stenosis left extracranial internal carotid. Patent and antegrade vertebrals bilaterally. Ordering Physician: Toan Cline Referring Physician: Rupali Rizo Performed By: Torie Stone, MASOUD, RVT
== END | disposition home or self-care (01) ==
LOC: CVS 11:03
PROVIDERS: PCP Family Medicine; Visit Provider Surgery Trauma Surgery
DX: I65.23 Occlusion and stenosis of bilateral carotid arteries (principal)
CPT/HCPCS: 93880

== ENCOUNTER 2022-08-18 22:14 | Emergency (ER) | payer OTHER, SELFPAY ==
[2022-08-18 22:15] VITALS: BP 138/66; PULSE 73; RESP 15; TEMP 36.3; O2SAT 96
[2022-08-18] MEDS: Silver Nitrate (BKC) 1 EACH TOPICAL (23:57)
[2022-08-18] MEDS: Mixture 30 ML Bottle TOPICAL (23:57)
--- NOTE | 2022-08-19 00:46 | EDS_ITS ---
HPI History of Present Illness Chief Complaint: Nosebleed Informant: patient Onset/Context/Timing Onset: Today Context: Sudden Onset (No trauma) Timing: Intermittent Current Severity: Mild Maximum Severity: Moderate Relieved by: Holding pressure Narrative Narrative: Spontaneous right-sided nosebleed, no systemic symptoms of anemia, right side only. Patient is on aspirin no other antiplatelets or anticoagulants. Swallowing a little bit of blood but the majority of his coming out the front. [facility] Medical History Acute maxillary sinusitis, unspecified Asthma Atherosclerotic heart disease of [place] coronary artery without angina pectoris Bilateral carotid artery stenosis Diverticulosis HTN (hypertension) Hyperlipidemia Hypertrophic obstructive cardiomyopathy Nonrheumatic mitral (valve) prolapse Nonrheumatic mitral valve regurgitation Premature atrial contractions Premature ventricular contraction Home Medications ezetimibe 10 mg tablet 10 mg PO DAILY 02/20/14 [History Last Taken Unknown] aspirin 81 mg tablet,delayed release (Adult Low Dose Aspirin) 81 mg PO QDAY #30 tabs 01/05/18 [Rx Last Taken Unknown] metoprolol succinate 25 mg tablet,extended release 24 hr 25 mg PO BID #60 tabs 01/01/19 [Rx Last Taken Unknown] simvastatin 40 mg tablet (Zocor) 40 mg PO DAILY 08/08/22 [History Last Taken Unknown] Allergy/AdvReac Type Severity Reaction Status Date / Time No Known Allergies Allergy Verified 08/18/22 22:18 Family History Father CAD (coronary artery disease) Myocardial infarction Hx of CABG Mother Hypertension Brother CAD (coronary artery disease) Myocardial infarction Brother CAD (coronary artery disease) Myocardial infarction Sister Diabetes Other Heart disease Surgical History History of back surgery History of breast biopsy History of carpal tunnel surgery History of tonsillectomy Social History Smoking Status: Never smoker alcohol intake: current alcohol intake frequency: holidays/special occasions only substance use type: does not use caffeine: Yes Type: coffee Number of servings: 1 ROS ROS ED Constitutional Constitutional ED: Denies chills or fever(s) ENT ENT ED: Reports epistaxis; Denies facial pain, sore throat or throat swelling Cardiovascular Cardiovascular: Denies chest pain, lightheadedness or syncope Gastrointestinal Gastrointestinal: Denies nausea or vomiting Hematologic/Lymphatic Hematologic/Lymphatic: Reports easy bleeding and easy bruising EXAM Physical Exam Const Vital Signs: 08/18/22 22:15 Temperature 97.3 F L Temperature Source Temporal Pulse Rate 73 Respiratory Rate 15 Blood Pressure 138/66 H Blood Pressure Mean 90 Pulse Ox 96 Oxygen Delivery Method Room Air Positive well nourished and well developed General Appearance ED: well developed and NAD HEENT HEENT Narrative: Blood in the right naris without active bleeding. Blood in the posterior oropharynx without active bleeding or clots seen. No stridor. Left naris is clear. No septal perforation or hematoma. Eyes PERRL and EOMs intact bilaterally Neck supple Resp normal respiratory effort and clear to auscultation bilaterally Cardio regular rate and regular rhythm Rate: Negative for tachycardic Neuro oriented x3, CN's II-XII intact bilaterally and no sensory deficits noted Motor Exam: strength 5/5 throughout Psych mental status grossly normal Skin no rashes or lesions noted and no wounds MDM MDM MDM Narrative Medical decision making narrative: Able to manage this nosebleed conservatively, with silver nitrate cauterization, see the procedure note. I do not think she needs blood counts checked she did not lose that much blood, which we discussed. Blood pressure not out of con trol, follow-up with ENT as needed. Procedures Other Procedures Procedure(s): Epistaxis care: Patient evacuated her nose by blowing it, this was followed by aerosolizing [address] Thomson solution, followed by a pledget soaked in same. This was followed by a couple different rounds of silver nitrate cauterization to the area, till eventually hemostasis was obtained. Tolerated well no complications. Discharge Plan Triage Chief Complaint: Nosebleed ED Provider: Saravanan Hernandez Dx/Rx/DC Orders Clinical Impression: Acute anterior epistaxis Instructions: ED Epistaxis (Adult) Prescriptions: No Action aspirin [Adult Low Dose Aspirin] 81 mg tablet,delayed release (DR/EC) 81 mg PO QDAY Qty: 30 0RF ezetimibe 10 MG tablet 10 mg PO DAILY metoprolol succinate 25 mg tablet extended release 24 hr 25 mg PO BID Qty: 60 12RF Primary Care Provider: Rupali Rizo Referrals: Jose L Weber MD [Med Staff - Active Staff] - As Needed Rupali Rzio DO [Primary Care Provider] - Disposition Disposition: Home, Self Care
== END 2022-08-19 01:30 | disposition home or self-care (01) ==
PROVIDERS: Emergency Provider Emergency Medicine; PCP Family Medicine; Visit Provider Emergency Medicine
DX: R04.0 Epistaxis (principal); I42.1 Obstructive hypertrophic cardiomyopathy; I10 Essential (primary) hypertension; E78.5 Hyperlipidemia, unspecified; I25.10 Atherosclerotic heart disease of native coronary artery without angina pectoris; Z79.82 Long term (current) use of aspirin
CPT/HCPCS: 30901; 99282

== ENCOUNTER → 2022-08-21 | Outpatient (CLI) | payer OTHER, SELFPAY ==
--- NOTE | 2022-08-21 14:49 | PFTCOMP ---
COMPLETE PULMONARY FUNCTION TEST INTERPRETATION Brief HPI: Patient is a 72-year-old female, currently under the care of Dr. Rizo, who presents to [facility] for complete pulmonary function tests secondary to diagnosis of dyspnea. Respiratory therapist reports good effort and reproducible results. Interpretation: Forced expiration spirometry shows no large airways obstructive ventilatory defect with an FEV1 of 107% predicted. There is no significant bronchodilator response by strict ATS criteria. Spirograms are of good quality and plateau normally. The respiratory flow volume loop shows a normal pattern. Lung volumes by body plethysmography show a normal total lung capacity at 5.13 L, 107% predicted. All other lung volumes are within normal limits. Diffusion capacity by carbon monoxide is normal at 74% predicted. The airway resistance is normal. Compared to previous pulmonary function tests from 02/10/2019, there is been a slight improvement in DLCO by 14%. Impression: Grossly normal pulmonary function tests. Could consider bronchoprovocation study if asthma is being considered
== END | disposition home or self-care (01) ==
LOC: PSN 08:09
PROVIDERS: PCP Family Medicine; Referring Provider Family Medicine; Visit Provider Family Medicine
DX: J45.909 Unspecified asthma, uncomplicated (principal); R06.02 Shortness of breath
CPT/HCPCS: 94060; 94726; 94729

== ENCOUNTER 2023-01-23 16:00 | Emergency (ER) | payer OTHER, SELFPAY ==
[2023-01-23 16:01] VITALS: BP 156/65; PULSE 72; RESP 16; TEMP 36.1; O2SAT 99; BMI 37.5
--- NOTE | 2023-01-23 16:14 | EDS_ITS ---
HPI History of Present Illness Chief Complaint: Lower Extremity Injury [facility] Medical History Acute maxillary sinusitis, unspecified Asthma Atherosclerotic heart disease of [place] coronary artery without angina pectoris Bilateral carotid artery stenosis Diverticulosis HTN (hypertension) Hyperlipidemia Hypertrophic obstructive cardiomyopathy Nonrheumatic mitral (valve) prolapse Nonrheumatic mitral valve regurgitation Premature atrial contractions Premature ventricular contraction Home Medications ezetimibe 10 mg tablet 10 mg PO DAILY 02/20/14 [History Last Taken Unknown] aspirin 81 mg tablet,delayed release (Adult Low Dose Aspirin) 81 mg PO QDAY #30 tabs 01/05/18 [Rx Last Taken Unknown] metoprolol succinate 25 mg tablet,extended release 24 hr 25 mg PO BID #60 tabs 01/01/19 [Rx Last Taken Unknown] simvastatin 40 mg tablet (Zocor) 40 mg PO DAILY 08/08/22 [History Last Taken Unknown] oxycodone-acetaminophen 5 mg-325 mg tablet (Percocet) 1 tab PO Q6H PRN pain 3 days #12 tabs 01/23/23 [Rx Last Taken Unknown] Allergy/AdvReac Type Severity Reaction Status Date / Time No Known Allergies Allergy Verified 01/23/23 16:01 Family History Father CAD (coronary artery disease) Myocardial infarction Hx of CABG Mother Hypertension Brother CAD (coronary artery disease) Myocardial infarction Brother CAD (coronary artery disease) Myocardial infarction Sister Diabetes Other Heart disease Surgical History History of back surgery History of breast biopsy History of carpal tunnel surgery History of tonsillectomy Social History Smoking Status: Never smoker alcohol intake: current alcohol intake frequency: holidays/special occasions only substance use type: does not use caffeine: Yes Type: coffee Number of servings: 1 EXAM Physical Exam Const Vital Signs: 01/23/23 16:01 01/23/23 17:31 Temperature 96.9 F L Temperature Source Temporal Pulse Rate 72 72 Respiratory Rate 16 15 Blood Pressure 156/65 H 134/69 H Blood Pressure Mean 95 Pulse Ox 99 99 MDM MDM MDM Narrative Medical decision making narrative: HISTORY OF PRESENT ILLNESS: 72-year-old female here with right-sided low back pain hip pain. Notes no trauma. No history of gout. Denies any falls. Notes pain starts in her buttocks and radiates down her leg. Patient denies any saddle anesthesia, urinary retention, bowel or bladder incontinence, lower extremity weakness, fever or IV drug use, no recent spinal manipulation or surgery, no recent urinary catheterization. REVIEW OF SYSTEMS: Pertinent positives: Back pain/hip pain Pertinent negatives: Bowel or bladder incontinence PHYSICAL EXAM: Nursing triage notes reviewed, Vital signs reviewed Constitutional: please see mdm HENT: MMM Eyes: Pupils equal round and reactive to light, Extraocular muscles intact Neck: No stridor, no JVD, full neck ROM Lungs: Clear to auscultation, No wheezing or rales. No increased work of breathing, no conversational dyspnea, no accessory muscle use, no nasal flaring. No respiratory distress noted Heart: Regular rate and rhythm, No murmurs, No rubs and No gallops, 2+ distal pulses (radial, femoral, posterior tibial) in all extremities Abdomen: Soft, there is no tenderness, rigidity, rebound or guarding, no obvious peritoneal signs, no palpable pulsatile abdominal masses, no auscultated abdominal bruit : No CVAT Extremities: No edema Back: Mild TTP over lumbar spine but no step-offs or deformities noted. Neuro: Intact sensation L1-S1 dermatomal distributions. Intact 5/5 strength in hip flexion (T12-L3). Knee extension (L2-L4). Ankle dorsiflexion (L4-L5). Ankle plantar flexion (S1). Great toe extension (L5). 2+ patellar and Achilles DTRs. Skin: No rash or lesions noted MEDICAL DECISION MAKING: Chief Complaint: Back pain/hip pain External records reviewed: X-rays lumbar spine 2018 shows no acute fractures location Factors affecting care: CAD, hyperlipidemia ALL IMAGES (IF OBTAINED) HAVE BEEN PERSONALLY REVIEWED AND INTERPRETED BY MYSELF. [facility] Narrative: Patient is hemodynamically stable, afebrile, nontoxic-appearing I considered the following differential diagnosis: Lumbar radiculopathy, space- occupying lesion of the spine, AAA Patient had no pulsatile abdominal masses, all stated bruits to suggest AAA. Suspect patient is having lumbar radiculopathy or sciatica. Patient with no red flag symptoms to suggest space-occupying lesion of spine. Will give anti- inflammatories and symptomatic pain control for home-going The patient presented complaining of back pain. There was no history of recent fall or trauma. There was no evidence to support genitourinary etiology. There is also no evidence to suggest vascular pathology such as AAA dissection. No fevers or other evidence to suspect infectious processes, abscess, osteomyelitis etc. The patient?s neurological exam is normal with normal motor and sensory. There is no saddle paresthesias reported and no bowel or bladder incontinence or retention. I suspect the pain is mechanical in nature. Clinical suspicion, plan of care and management was discussed with the patient. The patient was instructed to follow up with their health care provider. The patient was also instructed to return if the pain worsened, changed, or developed weakness or bowel or bladder trouble. The patient agreed with plan. I completed a structured, evidence-based clinical evaluation to screen for acute non-traumatic spinal emergencies. The patient has a normal detailed neurologic exam and red flag historical factors were negative. The evidence indicates that the patient is very low risk for an acute spinal emergency and this is consistent with my clinical intuition. The risk of further workup is higher than the likelihood of the patient having a spinal epidural ab scess or other dangerous emergency spinal condition. It is, therefore, in the patient?s best interest not to do additional emergent testing at this time. Shared Decision-Making I have discussed with the patient my clinical impression and the result of an evidence-based clinical evaluation to screen for spinal epidural abscess and other spinal emergencies, as well as the risk of further testing and hospitalization. The evidence shows that the risk for an acute spinal emergency is less than 1%. Although the risk of an acute spinal emergency has not been completely eliminated, the risks of further testing likely exceed any potential benefit, and the patient agrees with not pursuing further emergent evaluation for causes of back pain at this time. The patient and/or family, caregivers express understanding. The patient and/or family, caregivers agrees with the plan. Total critical care time today provided was at least 0 minutes. This excludes separately billable procedures. Critical care time (if documented) is secondary to the patient having high probability of clinically significant/life threatening deterioration in the patient's condition which required my urgent intervention. Impression: Lumbar radiculopathy Dispo: Discharge home Discharge Plan Triage Chief Complaint: Lower Extremity Injury ED Provider: Curt Mcdaniel Dx/Rx/DC Orders Clinical Impression: Sciatica, Back pain Instructions: ED Sciatica Prescriptions: New oxycodone-acetaminophen [Percocet] 5-325 mg tablet 1 tab PO Q6H PRN (Reason: pain) 3 Days Qty: 12 0RF No Action aspirin [Adult Low Dose Aspirin] 81 mg tablet,delayed release (DR/EC) 81 mg PO QDAY Qty: 30 0RF simvastatin [Zocor] 40 mg tablet 40 mg PO DAILY ezetimibe 10 MG tablet 10 mg PO DAILY metoprolol succinate 25 mg tablet extended release 24 hr 25 mg PO BID Qty: 60 12RF Primary Care Provider: Rupali iRzo Referrals: Rupali Rizo DO [Primary Care Provider] - Activity Restrictions/Additional Instructions: Thank you for trusting us with your care today! Please take Tylenol (2 pills, 650 mg), ibuprofen (2 pills, 400 mg) every 6 hours as needed for pain and fever control. Please take Percocet if this does not control your pain. Please return to the emergency department if your symptoms change or worsen. Specifically if develop bowel or bladder incontinence, urinary retention, loss of movement or sensation in your legs. Loss of sensation around your private region. Please follow with your primary care physician for further outpatient evaluation and management. Disposition Disposition: Home, Self Care Discharge Date/Time: 01/23/23 17:34
[2023-01-23] MEDS: Ibuprofen 200 MG Tablet PO (17:01)
[2023-01-23] MEDS: Lidocaine 5% Patch 1 PATCH TOPICAL (17:02)
[2023-01-23 17:31] VITALS: BP 134/69; PULSE 72; RESP 15; O2SAT 99
== END 2023-01-23 17:34 | disposition home or self-care (01) ==
PROVIDERS: Emergency Provider Emergency Medicine; PCP Family Medicine; Visit Provider Emergency Medicine
DX: M54.30 Sciatica, unspecified side (principal); E78.5 Hyperlipidemia, unspecified; I25.10 Atherosclerotic heart disease of native coronary artery without angina pectoris; M54.16 Radiculopathy, lumbar region; I10 Essential (primary) hypertension; Z79.899 Other long term (current) drug therapy; Z79.82 Long term (current) use of aspirin
CPT/HCPCS: 99283

== ENCOUNTER → 2023-02-10 | Outpatient (CLI) | payer OTHER, SELFPAY ==
--- NOTE | 2023-02-10 15:02 | CDU_ITS ---
Reason For Study: CAROTID STENOSIS Rt. Velocities/BP Lt. Velocities/BP Prox CCA 98.1/16.8 cm/sec. Prox CCA 103.9/17.9 cm/sec. Mid CCA 88.3/19.0 cm/sec. Mid CCA 103.9/17.9 cm/sec. Dist CCA 75.1/13.5 cm/sec. Dist CCA 103.9/22.8 cm/sec. Prox ICA 121.9/34.8 cm/sec. Prox ICA 301.7/89.8 cm/sec. Mid ICA 125.6/32.3 cm/sec. Mid ICA 246.8/54.5 cm/sec. Dist ICA 64.6/20.4 cm/sec. Dist ICA 120.5/17.3 cm/sec. Rt. ICA/CCA = 125.6/88.3=1.4. Lt. ICA/CCA = 301.7/103.9=2.7. Prox ECA 119.5/6.5 cm/sec. Prox ECA 171.0/6.6 cm/sec. Rt. Vert. 75.6/20.4 cm/sec. Lt. Vert. 66.9/14.2 cm/sec. Right Extracranial There is homogeneous, smooth atherosclerotic plaque noted in the right common carotid artery. There is heterogeneous, irregular atherosclerotic plaque noted in the right internal carotid artery. There is intimal thickening but no significant atherosclerotic plaque noted in the right external carotid artery. Antegrade flow is noted in the right vertebral artery. Left Extracranial There is homogeneous, smooth atherosclerotic plaque noted in the left common carotid artery. There is heterogeneous, irregular atherosclerotic plaque noted in the left internal carotid artery. The atherosclerotic plaque causes acoustic shadowing. There is homogeneous, smooth atherosclerotic plaque noted in the left external carotid artery. Antegrade flow is noted in the left vertebral artery. Procedure Carotid Duplex [id number]. This is a Carotid Duplex examination using B-mode, color flow and specral Doppler. Exam performed in department. VL/Carotid Duplex Ultrasound Interpretation Summary Moderate (50-69%) stenosis right extracranial internal carotid. Severe (>70%) stenosis left extracranial internal carotid. Patent and antegrade vertebrals bilaterally. Ordering Physician: Jaleesa Bose Referring Physician: Jaleesa Bose Performed By: Torie Stone, MASOUD, RVT
== END | disposition home or self-care (01) ==
LOC: CVS 15:01
PROVIDERS: PCP Family Medicine; Referring Provider Physician Assistant; Visit Provider Physician Assistant
DX: I65.23 Occlusion and stenosis of bilateral carotid arteries (principal)
CPT/HCPCS: 93880

== ENCOUNTER → 2023-07-10 | Outpatient (CLI) | payer OTHER, SELFPAY ==
--- NOTE | 2023-07-10 16:14 | BI_ITS ---
MAMMOGRAPHY - BILATERAL SCREENING REASON FOR EXAM: Female, 73 years old. Routine annual screening examination. PERTINENT HISTORY: Mother with breast cancer. Aunt with breast cancer. TECHNIQUE: Digital bilateral breast ta (3D mammographic acquisition) in the CC and MLO projections. 2-D mediolateral oblique (MLO) and craniocaudad (CC) views of both breasts were obtained. CAD: Full Field Digital Mammography with Computer Added Detection was performed. COMPARISON: Comparison is made with prior study dated June 18, 2022 and June 13, 2021. FINDINGS: Breast Composition: The breasts are almost entirely fatty. There are no dominant masses or suspicious calcifications. Stable small benign-appearing left axillary lymph nodes. No other significant abnormalities are identified. There has been no significant change since the prior study. BI/SCRN MAMM (CAD)W/TA BILAT IMPRESSION: Stable bilateral screening mammogram. Yearly follow-up mammogram recommended. (A) ASSESSMENT CATEGORY: BIRADS Category 2: Benign. A letter regarding these results will be sent to the patient by the facility within 30 days. Approximately 10% of breast cancers are not detected by mammography. A normal mammogram should not delay biopsy of a clinically suspicious abnormality. [id number] Electronically Signed: Mk Harris MD at 8:46 EST ,
== END | disposition home or self-care (01) ==
LOC: OPBI 16:12
PROVIDERS: PCP Family Medicine; Visit Provider Family Medicine
DX: Z12.31 Encounter for screening mammogram for malignant neoplasm of breast (principal); Z80.3 Family history of malignant neoplasm of breast
CPT/HCPCS: 77063; 77067

== ENCOUNTER 2023-07-17 16:31 | Emergency (ER) | payer OTHER, SELFPAY ==
[2023-07-17 16:32] VITALS: BP 124/86; PULSE 86; RESP 16; TEMP 36.6; O2SAT 97; BMI 37.5
--- NOTE | 2023-07-17 16:45 | EDS_ITS ---
HPI History of Present Illness Chief Complaint: Lower Extremity Injury Detail of Chief Complaint: Right knee injury Informant: patient Narrative Narrative: Patient presents secondary to right knee injury. She was getting ready for work this morning when she caught her foot on the strap/handle of the bag. She fell forward landing on carpeted floor. She complains of pain to her anterior right knee. She is been icing it all day. She denies any prior orthopedic surgeries or injections to that knee. She takes baby aspirin but no other form of blood thinner. [facility] Medical History Acute maxillary sinusitis, unspecified Asthma Atherosclerotic heart disease of [place] coronary artery without angina pectoris Bilateral carotid artery stenosis Diverticulosis HTN (hypertension) Hyperlipidemia Hypertrophic obstructive cardiomyopathy Nonrheumatic mitral (valve) prolapse Nonrheumatic mitral valve regurgitation Premature atrial contractions Premature ventricular contraction Home Medications ezetimibe 10 mg tablet 10 mg PO DAILY 02/20/14 [History Last Taken Unknown] aspirin 81 mg tablet,delayed release (Adult Low Dose Aspirin) 81 mg PO QDAY #30 tabs 01/05/18 [Rx Last Taken Unknown] metoprolol succinate 25 mg tablet,extended release 24 hr 25 mg PO BID #60 tabs 01/01/19 [Rx Last Taken Unknown] simvastatin 40 mg tablet (Zocor) 40 mg PO DAILY 08/08/22 [History Last Taken Unknown] oxycodone-acetaminophen 5 mg-325 mg tablet (Percocet) 1 tab PO Q6H PRN pain 3 days #12 tabs 01/23/23 [Rx Last Taken Unknown] Allergy/AdvReac Type Severity Reaction Status Date / Time No Known Allergies Allergy Verified 07/17/23 16:31 Family History Father CAD (coronary artery disease) Myocardial infarction Hx of CABG Mother Hypertension Brother CAD (coronary artery disease) Myocardial infarction Brother CAD (coronary artery disease) Myocardial infarction Sister Diabetes Other Heart disease Surgical History History of back surgery History of breast biopsy History of carpal tunnel surgery History of tonsillectomy Social History Smoking Status: Never smoker alcohol intake: current alcohol intake frequency: holidays/special occasions only substance use type: does not use caffeine: Yes Type: coffee Number of servings: 1 ROS ROS ED Constitutional Constitutional ED: Denies chills or fever(s) Eyes Eyes: Denies discharge from eye(s) ENT ENT ED: Denies discharge from eye(s) or sore throat Cardiovascular Cardiovascular: Denies chest pain Respiratory/Chest Respiratory/Chest: Denies cough or dyspnea Gastrointestinal Gastrointestinal: Denies abdominal pain Musculoskeletal Musculoskeletal: Reports extremity pain; Denies back pain or neck pain Integumentary Reports Abrasions; Denies rash Neurologic Neurologic: Denies headache(s), paresthesias or weakness Psychiatric Psychiatric: Denies anxiety or depression Allergic/Immunologic Allergic/Immunologic ED: Denies lip swelling or urticaria EXAM Physical Exam Const Vital Signs: 07/17/23 16:32 Temperature 97.8 F Temperature Source Temporal Pulse Rate 86 Respiratory Rate 16 Blood Pressure 124/86 H Blood Pressure Mean 98 Pulse Ox 97 Oxygen Delivery Method Room Air Positive well nourished and well developed General Appearance ED: well developed HEENT Reports moist mucous membranes Neck full ROM Neck Narrative: No C-spine tenderness. Chest Wall inspection of chest normal and palpation of chest normal Resp normal respiratory effort and clear to auscultation bilaterally Cardio regular rate and regular rhythm Extremity Extremity Narrative: Superficial abrasion of the anterior right knee. Mild edema noted of the right knee. Ligaments tight on testing. Slight decreased range of motion secondary t o edema. Good cap refill and sensation. Neuro oriented x3 and no sensory deficits noted MDM MDM MDM Narrative Medical decision making narrative: Patient given ibuprofen for pain. Right knee x-rays obtained to evaluate for fracture, malalignment, sprain, strain. Radiography Diagnostic Testing: Clinical Impression(s) from Imaging Studies Knee X-Ray 07/17/23 16:55 IMPRESSION: Possible prepatellar bursitis/soft tissue swelling. No fracture noted. Electronically Signed: Leonel Ruff MD at 17:46 EST , Treatment and Re-Evaluation Narrative: Right knee x-ray per my interpretation reveals soft tissue swelling with no evidence of bony injury. Radiology interpretation is reviewed and agrees. Test results discussed with the patient. René wrap will be applied to the knee. She will continue ice, Tylenol, and ibuprofen at home. Discharge Plan Triage Chief Complaint: Lower Extremity Injury ED Provider: Fariha Heard Dx/Rx/DC Orders Clinical Impression: Contusion of knee, right Instructions: ED Contusion, Lower Extremity Prescriptions: No Action aspirin [Adult Low Dose Aspirin] 81 mg tablet,delayed release (DR/EC) 81 mg PO QDAY Qty: 30 0RF simvastatin [Zocor] 40 mg tablet 40 mg PO DAILY ezetimibe 10 MG tablet 10 mg PO DAILY oxycodone-acetaminophen [Percocet] 5-325 mg tablet 1 tab PO Q6H PRN (Reason: pain) 3 Days Qty: 12 0RF metoprolol succinate 25 mg tablet extended release 24 hr 25 mg PO BID Qty: 60 12RF Primary Care Provider: Rupali Rizo Referrals: Rupali Rizo DO [Primary Care Provider] - 10-14 Days if not better Disposition Disposition: Home, Self Care
--- NOTE | 2023-07-17 16:55 | RAD_ITS ---
STUDY: X-RAY - RIGHT KNEE REASON FOR EXAM: Female, 73 years old. injury TECHNIQUE: 4 view(s) of the knee. COMPARISON: None. FINDINGS: Normal visualized distal femur. Normal visualized proximal tibia and fibula. Normal proximal tibiofibular articulation. Normal medial femorotibial compartment. Normal lateral femorotibial compartment. Normal patellofemoral articulation. Prepatellar soft tissue swelling. RAD/Knee 4 or More Views IMPRESSION: Possible prepatellar bursitis/soft tissue swelling. No fracture noted. Electronically Signed: Leonel Ruff MD at 17:46 EST ,
[2023-07-17] MEDS: Ibuprofen 200 MG Tablet 400 MG PO (17:06)
--- OUTSIDE RECORDS SUMMARY | 2023-07-17 19:25 | XMS RPT_ITS | CCD ---
Author Name Unknown Address [address] [place] [address] Organization [facility] Care Team Providers Care Marine Plumber Name Role Phone Juhi Baum LPN Unavailable Unavailab MIGUELANGEL Poon Unavailable Unavailable IMCA Unavailable Unavailable IMCA Unavailable Unavailable Rupali Rizo DO Primary Care Provider Feliz Beltre Unavailable Rupali Rizo DO Primary Care Provider FELIZ BELTRE Referring Unavailable FELIZ BELTRE Attending Unavailable Allergies Allergy Classification Reported Allergen(s) Allergy Type Date of Onset Reaction(s) Facility (1 source) *Seasonal Propensity to adverse reactions to substance 01-28-2023 [facility] (1 source) Mixed Ragweed Propensity to adverse reactions to drug 01-28-2023 [facility] Medications Current Medications Medication Drug Class(es) Dates Sig (Normalized) Sig (Original) iv contrast (will be provided with radiology test) (2 sources) Start: 10-30-2021 End: 10-31-2021 inject 1 dose intravenously once iv contrast (will be provided with radiology test) Indications: Carotid stenosis, bilateral , Encounter for screening for cardiovascular disorders CTA Head/Neck W No IV access, insert saline lock prior to the sedation, infusion, injection for imaging exam. Discontinue saline lock post exam. If Pt. has a central line or IVAD, may access for administration according to line specific nursing protocol. Once exam is complete flush line and de-access according to line specific nursing protocol in the CT contrast administration guidelines link. 1 Each 0 10/30/2021 10/31/2021 Active Completed/Discontinued Medications Medication Drug Class(es) Dates Sig (Normalized) Sig (Original) 200 actuat albuterol 0.09 mg/actuat metered dose inhaler (3 sources) beta2-Adrenergic Agonist Start: 02-17-2013 PROVENTIL HFA 108 (90 Base) MCG/ACT AERS prn ALBUTEROL SULFATE [id number] Alma Dobson RN Problems Active Problems Problem Classification Problem Date Documented Da te Episodic/Chronic Cardiac dysrhythmias (3 sources) Ventricular premature beats; Translations: [Ectopic beats] Onset: 10-15-2010 10-15-2010 Chronic Conduction disorders (2 sources) Conduction disorder of the heart; Translations: [Cardiac arrhythmia, unspecified] Onset: 10-15-2010 Resolved: 12-28-2015 12-28-2015 Chronic Disorders of lipid metabolism (5 sources) Hyperlipidemia; Translations: [Hyperlipidemia, unspecified] Onset: 10-15-2010 10-15-2010 Chronic Essential hypertension (2 sources) Hypertensive disorder; Translations: [Essential (primary) hypertension] Onset: 04-11-2013 04-11-2013 Chronic Heart valve disorders (4 sources) Mitral valve disorder; Translations: [Non-rheumatic mitral regurgitation ] Onset: 10-15-2010 10-15-2010 Chronic Occlusion or stenosis of precerebral arteries (5 sources) Bilateral stenosis of carotid arteries; Translations: [Occlusion and stenosis of bilateral carotid arteries] Onset: 01-28-2023 Chronic Other nutritional; endocrine; and metabolic disorders (1 source) Obese class II; Translations: [Obesity, unspecified] Onset: 01-28-2023 01-28-2023 Chronic Other upper respiratory disease (2 sources) Allergic rhinitis; Translations: [Allergic rhinitis, unspecified] Onset: 04-11-2013 04-11-2013 Chronic Bertha-; endo-; and myocarditis; cardiomyopathy (5 sources) Other hypertrophic cardiomyopathy; Translations: [Obstructive hypertrophic cardiomyopathy] Onset: 10-15-2010 10-15-2010 Chronic Peripheral and visceral atherosclerosis (1 source) Peripheral vascular disease; Translations: [Peripheral vascular disease, unspecified] Onset: 03-01-2013 03-01-2013 Chronic Unclassified (1 source) Body mass index (BMI) 32.0-32.9, adult; Translations: [Body mass index (BMI) 32.0-32.9, adult] Onset: 02-22-2013 02-22-2013 Chronic Unclassified (3 sources) Abnormal result of cardiovascular function study, unspecified; Translations: [Patient encounter status] Onset: 10-15-2010 Resolved: 12-28-2015 10-15-2010 Episodic Unclassified (1 source) Long-term drug therapy; Translations: [Other termination clerk (current) drug therapy] Onset: 10-15-2010 10-15-2010 Unclassified (1 source) Unknown / UNK(Unknown) Onset: 01-09-2018 Past or Other Problems Problem Classification Problem Date Documented Da te Episodic/Chronic Diabetes mellitus without complication (1 source) Impaired glucose tolerance; Translations: [Other abnormal glucose] Onset: 11-23-2015 11-23-2015 Episodic Fracture of upper limb (1 source) Closed fracture of neck of radius; Translations: [Fracture of neck of radius, closed] Onset: 06-03-2014 06-03-2014 Episodic Heart valve disorders (2 sources) Heart murmur; Translations: [Cardiac murmur, unspecified] Onset: 04-11-2013 04-11-2013 Episodic Other connective tissue disease (1 source) Trochanteric bursitis; Translations: [Trochanteric bursitis, right hip] Onset: 11-23-2015 11-23-2015 Episodic Other injuries and conditions due to external causes (1 source) Spider bite wound; Translations: [Injury, unspecified] Onset: 09-04-2015 09-17-2015 Episodic Other lower respiratory disease (2 sources) Dyspnea; Translations: [Shortness of breath] Onset: 10-15-2010 Resolved: 12-28-2015 12-28-2015 Episodic Other non-traumatic joint disorders (1 source) Pain in elbow; Translations: [Pain in left elbow] Onset: 06-03-2014 06-03-2014 Episodic Other nutritional; endocrine; and metabolic disorders (1 source) Abnormal weight gain; Translations: [Abnormal weight gain] Onset: 11-23-2015 11-23-2015 Episodic Pneumonia (1 source) Pneumonia; Translations: [Pneumonia, unspecified organism] Onset: 08-17-2015 09-03-2015 Episodic Sprains and strains (1 source) Strain of muscle, fascia and tendon of lower back, initial encounter; Translations: [Strain of muscle, fascia and tendon of lower back, initial encounter] Onset: 03-31-2017 03-31-2017 Episodic Unclassified (2 sources) FH: Raised blood lipids; Translations: [FH: Hypertension] 03-28-2014 Episodic Unclassified (1 source) Stenosis Onset: 01-09-2018 Results Test Name Value Interpretation Reference Range Facil ity Vital Signs Date Time Vital Sign Value Performing Clinician Fidel colonmariama 01-28-2023 14:16-0400 Body height 165.1 cm Feliz Beltre MD Work Phone: [facility] 01-28-2023 14:16-0400 Body mass index (BMI) [Ratio] 36.11 kg/m2 Feliz Beltre MD Work Phone: [facility] 01-28-2023 14:16-0400 Body weight 98.43 kg Feliz Beltre MD Work Phone: [facility] 01-28-2023 14:16-0400 Diastolic blood pressure 68 mm[Hg] Feliz Beltre MD Work Phone: [facility] 01-28-2023 14:16-0400 Heart rate 73 /min Feliz Beltre MD Work Phone: [facility] 01-28-2023 14:16-0400 Systolic blood pressure 142 mm[Hg] Feliz Beltre MD Work Phone: [facility] 03-31-2017 16:08-0500 BMI (Body Mass Index) 35.5 kg/m2 Juhi Baum LPN [facility] Work Phone: 03-31-2017 16:08-0500 Body Temperature 98.3 [degF] Juhi Baum LPN [facility] Work Phone: 03-31-2017 16:08-0500 BP Diastolic 82 mm[Hg] Juhi Baum LPN [facility] Work Phone: 03-31-2017 16:08-0500 BP Systolic 124 mm[Hg] Juhi Baum LPN [facility] Work Phone: 03-31-2017 16:08-0500 Height 160.02 cm Juhi Baum LPN [facility] Work Phone: 03-31-2017 16:08-0500 Pulse (Heart Rate) 77 /min Juhi Baum LPN [facility] Now [facility] Work Phone: 03-31-2017 16:08-0500 Respiratory Rate 13 /min Juhi Baum LPN [facility] Work Phone: 03-31-2017 16:08-0500 Weight 90.9 kg Juhi Baum LPN [facility] Work Phone: 12-30-2016 08:32-0400 Height 162.56 cm Juhi Baum LPN [facility] Work Phone: 12-30-2016 08:32-0400 Weight 89.36 kg Juhi Baum LPN [facility] Work Phone: 01-01-2016 08:34-0400 BSA (Body Surface Area) 1.95 m2 Juhi Baum LPN [facility] Work Phone: Encounters Encounter Date Encounter Type Care Provider Facility Start: 01-28-2023 ambulatory [facility] Start: 01-28-2023 End: 01-28-2023 Office outpatient new 45 minutes Feliz Beltre MD Work Phone: [facility] Procedures Date Procedure Procedure Detail Performing Clinician Start: 06-23-2019 Colonoscopy Reshma Marino tthews CAP [email or web address].MUFFLER HAND Work Phone: Start: 03-31-2017 End: 03-31-2017 Ketorolac Tromethamine 30 mg/ml Néstor MCGRATH Work Phone: Start: 12-30-2016 End: 01-13-2017 Echocardiography Feliz Beltre MD Start: 12-30-2016 End: 12-30-2016 Follow Up Appt 1 year Feliz Brennan Start: 12-30-2016 End: 12-30-2016 PFM Feliz Beltre MD Start: 01-01-2016 End: 01-01-2016 Follow Up Appt 1 year Feliz Brennan Start: 01-01-2016 End: 01-01-2016 PFM Feliz Beltre MD Start: 11-23-2015 End: 11-23-2015 Glucose blood reagent strip Raghav humphreys DO Work Phone: Start: 01-09-2015 End: 01-09-2015 Follow Up Appt 1 year Feliz Brennan Start: 01-09-2015 End: 01-09-2015 PFM Feliz Beltre MD Start: 03-28-2014 End: 03-28-2014 Follow Up Appt 6 months Feliz Beltre MD Start: 03-28-2014 End: 03-28-2014 PFM Feliz Beltre MD Start: 08-20-2013 End: 08-20-2013 Ecg routine ecg w/least 12 lds w/i&r Feliz Beltre MD Start: 08-20-2013 End: 12-17-2016 Echocardiography Feliz Beltre MD Start: 08-20-2013 End: 08-20-2013 Follow Up Appt 6 months Feliz Beltre MD Start: 08-20-2013 End: 08-20-2013 PFM Feliz Beltre MD Start: 02-22-2013 End: 02-22-2013 Follow Up Appt 6 months Feliz Beltre MD Start: 02-22-2013 End: 02-27-2016 Lipid 1996 panel - Serum or Plasma Feliz Beltre MD Start: 02-22-2013 End: 02-22-2013 PFM Feliz Beltre MD Start: 06-22-2012 End: 08-20-2013 Echocardiography Feliz Beltre MD Start: 06-22-2012 End: 08-20-2013 Follow Up Appt 6 months Feliz Beltre MD Start: 06-22-2012 End: 08-20-2013 PFM Feliz Beltre MD Start: 12-19-2011 End: 12-19-2011 Ecg routine ecg w/least 12 lds w/i&r Feliz Beltre MD Start: 12-19-2011 End: 12-19-2011 Follow Up Appt 6 months Feliz Beltre MD Plan of Treatment Date Care Activity Detail Author Start: 02-21-2024 Tetanus vaccination TETANUS [facility] Start: 08-04-2023 End: 08-04-2023 Patient encounter procedure 08/04/2023 11:30 AM EDT Office Visit [facility] [address] [address] Feliz Beltre MD [address] [place] [id number] [facility] Start: 01-24-2023 Influenza vaccination INFLUENZA VACCINE (#1) [facility] Start: 08-03-2022 COVID-19 VACCINE (3 - Mixed Product series) COVID-19 VACCINE (3 - Mixed Product series) [facility] Start: 01-24-2022 Influ[facility] Start: 10-30-2021 End: 12-30-2021 CREATININE BLD CREATININE BLD Lab Routine Carotid stenosis, bilateral Encounter for screening for cardiovascular disorders Expected: 10/30/2021, Expires: 12/30/2021 [facility] Work Phone: Immunizations Immunization Date Immunization Notes Care Provider Alen ibarra 02-25-2022 influenza virus vaccine, unspecified formulation Feliz Beltre MD Work Phone: [facility] 03-31-2017 [id number] Juhi Bautista [facility] Work Phone: Payers Date Payer Category Payer Unknown GENERIC PA[employer]OR [employer]AN [id number] 2023-Present [phone] [address] [place] [address] [id number] 2023 Unknown [id number] 2022 Medicare MEDICARE MEDICAR E PART A [id number] 2022-Present [address] [place] [address] [id number] 2022 Medicare [id number] 2019 Unknown MMO MMO TPA xxxx [id number] 2019-Present [address] [place] [address] PPO [id number] 1950 Unknown [id number] Unknown [id number] Social History Date Type Detail Facility Start: 01-28-2023 Tobacco smoking stat us MNIS Never smoked tobacco [facility] Work Phone: Start: 01-11-2021 Alcohol intake 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-dr 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 outside 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 alcohol (finding) [facility] Start: 1950 Sex Assigned At Not on file [facility] Start: 10-20-2021 End: 10-30-2021 Exposure to SARS-CoV-2 (event) Not sure [facility] Start: 01-28-2023 Tobacco use and exposure Smokeless tobacco non-user [facility] Start: 01-28-2023 Alcohol intake Current drinke r of alcohol (finding) [facility] Start: 01-28-2023 History of Social function [facility] Start: 01-28-2023 Tobacco use panel [facility] Start: 01-28-2023 Alcohol Comment social monthly [facility] Clinical Notes 01-11-2021 to 01-28-2023 Assessment & Plan Note - Feliz Beltre MD - 01/28/2023 3:10 PM EDTAssessment & Plan Note - Feliz Beltre MD - 01/28/2023 3:10 PM EDTPlefty Beltre MD - 01/28/2023 2:00 PM EDT Note Date & Type Note Facility 01-28-2023 Evaluation + Plan note Associated Problem(s): Pre-operative cardiovascular examination From a preoperative standpoint she appears to be symptomatically and hemodynamically stable at this time. Her previous studies were reviewed with her. It does not appear she requires additional cardiovascular studies prior to her upcoming peripheral vascular surgery procedure. At the time of her surgery be recommended that she have close monitoring of her cardiac rate, rhythm, and blood pressure during and following her surgical procedure. An attempt should be made to avoid excess IV volume overload as well as in her case, based upon her history of a hypertrophic obstructive cardiomyopathy, volume depletion as well. It would be recommended she continue her medical therapy in and around the time of her surgery. This includes her beta-ashlie therapy with her metoprolol XL. Hopefully based upon what appears to be her stable cardiovascular course, continued medical therapy, and close monitoring in and around the time of her surgery, her risks for adverse events from noncardiac surgery will be kept at a minimum. [facility] 01-28-2023 Evaluation + Plan note Associated Problem(s): Bilateral carotid artery stenosis She does have documented carotid artery stenosis. This is more prominent on the left. She is pending upcoming noninvasive studies in preparation for a left carotid endarterectomy. She continues risk factor modification medical therapy in the interim which does include her lipid-lowering therapy. [facility] 01-28-2023 Miscellaneous Notes Associated Problem(s): Pre-operative cardiovascular examination From a preoperative standpoint she appears to be symptomatically and hemodynamically stable at this time. Her previous studies were reviewed with her. It does not appear she requires additional cardiovascular studies prior to her upcoming peripheral vascular surgery procedure. At the time of her surgery be recommended that she have close monitoring of her cardiac rate, rhythm, and blood pressure during and following her surgical procedure. An attempt should be made to avoid excess IV volume overload as well as in her case, based upon her history of a hypertrophic obstructive cardiomyopathy, volume depletion as well. It would be recommended she continue her medical therapy in and around the time of her surgery. This includes her beta-ashlie therapy with her metoprolol XL. Hopefully based upon what appears to be her stable cardiovascular course, continued medical therapy, and close monitoring in and around the time of her surgery, her risks for adverse events from noncardiac surgery will be kept at a minimum. Associated Problem(s): Bilateral carotid artery stenosis She does have documented carotid artery stenosis. This is more prominent on the left. She is pending upcoming noninvasive studies in preparation for a left carotid endarterectomy. She continues risk factor modification medical therapy in the interim which does include her lipid-lowering therapy. Associated Problem(s): Hyperlipidemia She states she is scheduled for upcoming lipid labs. She will forward a copy to the office for continuity of care. In the interim she will continue her medical therapy with her simvastatin 40 mg p.o. q.day and her ezetimibe Zetia at 10 mg p.o. q.day. Associated Problem(s): Nonrheumatic mitral valve insufficiency She does have a history of mitral valve regurgitation. She has been followed by history, exam, and echocardiographic studies. At the moment she appears to be stable without any acute changes. She will continue with future outpatient follow-up and future echocardiographic studies as deemed appropriate. Associated Problem(s): Ectopic beats She does have a history of PACs and PVCs. She has not been known to have any other concerning cardiac dysrhythmias. Her previous noninvasive studies and invasive studies were reviewed with her. At the moment she will continue her medical therapy which includes her metoprolol XL 25 mg p.o. b.i.d.. Associated Problem(s): Hypertrophic obstructive cardiomyopathy At the present time she appears to be stable. She has no new acute symptoms or adverse events or hemodynamic compromise. Her previous noninvasive and invasive studies were reviewed with her. Her electrocardiogram from this day was reviewed with her. At the present time she will continue her current medical management. Over time she will have follow-up by history, exam, and future cardiovascular diagnostic studies as deemed appropriate. documented in this encounter [facility] 01-28-2023 Evaluation + Plan note Associated Problem(s): Hyperlipidemia She states she is scheduled for upcoming lipid labs. She will forward a copy to the office for continuity of care. In the interim she will continue her medical therapy with her simvastatin 40 mg p.o. q.day and her ezetimibe Zetia at 10 mg p.o. q.day. [facility] 01-28-2023 Evaluation + Plan note Associated Problem(s): Nonrheumatic mitral valve insufficiency She does have a history of mitral valve regurgitation. She has been followed by history, exam, and echocardiographic studies. At the moment she appears to be stable without any acute changes. She will continue with future outpatient follow-up and future echocardiographic studies as deemed appropriate. [facility] 01-28-2023 Evaluation + Plan note Associated Problem(s): Ectopic beats She does have a history of PACs and PVCs. She has not been known to have any other concerning cardiac dysrhythmias. Her previous noninvasive studies and invasive studies were reviewed with her. At the moment she will continue her medical therapy which includes her metoprolol XL 25 mg p.o. b.i.d.. [facility] 01-28-2023 Evaluation + Plan note Associated Problem(s): Hypertrophic obstructive cardiomyopathy At the present time she appears to be stable. She has no new acute symptoms or adverse events or hemodynamic compromise. Her previous noninvasive and invasive studies were reviewed with her. Her electrocardiogram from this day was reviewed with her. At the present time she will continue her current medical management. Over time she will have follow-up by history, exam, and future cardiovascular diagnostic studies as deemed appropriate. [facility] 01-28-2023 History of Present illness Narrative Images from the original note were not included. Referring provider: Primary care provider: Rupali Rizo DO (General) Peripheral Vascular Surgeon: Toan Cline MD (PVS) Dear Dr. Rizo, I had the pleasure of seeing your patient, Ina Cheney, at the [facility] on 01/28/2023. As you recall, you referred this 72 y.o. female to our attention for outpatient cardiovascular evaluation for a history of underlying hypertrophic obstructive type cardiomyopathy, hyperlipidemia, carotid artery disease, and preoperative assessment. I have reviewed pertinent outside medical records available at this time regarding this patient. Chief Complaint Patient presents with Heart Problem Re-establish Care Patient noted intermittent left ankle swelling. Denied any other cardiac symptoms. Patient previously followed with Dr. Beltre at another location and wishes to establish care with him at [facility]. HPI: This is a 72-year-old white female who presents for a new outpatient cardiovascular visit with a history of underlying hypertrophic obstructive type cardiomyopathy, hyperlipidemia, carotid artery disease, and in need of preoperative assessment for upcoming carotid artery endarterectomy surgery. She has previously been followed for her cardiovascular disease process behind the [facility] in [place], [place]. At the present time she states she is doing well from a cardiac standpoint. She denies any resting or exertional chest discomfort or shortness of breath/dyspnea. There has been no orthopnea, PND, or peripheral pitting edema. She has denied any palpitations and there has been no near-syncope or syncope. She has been on medical management. She has done well with her medications thus far without adverse events. She has undergone previous noninvasive and invasive cardiovascular studies in the past. They have include ECGs, Holter monitors, echocardiograms, stress test, cardiac catheterization, as well as her carotid artery duplex study. Her studies that are available for review are noted below. They have been reviewed and reviewed with her during this visit. She states she is undergoing evaluation for her carotid artery stenosis. She is due to have an upcoming carotid artery duplex study and a carotid artery CTA. She states that she knows she is having these performed in anticipation of an upcoming left carotid artery endarterectomy to be performed sometime this fall. She had an ECG in the office today. She was noted to have normal sinus rhythm with possible left atrial enlargement and electrocardiographic findings compatible with left ventricular hypertrophy with repolarization abnormality/variant. Historical information was reviewed in the medical record. The following historical elements were reviewed by a provider in the specific [facility] and updated as appropriate: Allergies Allergen Reactions *Seasonal Mixed Ragweed Outpatient Medications Prior to Visit Medication Sig Dispense Refill aspirin 81 MG Chew Tab chewable tablet Chew 1 tablet daily. Ezetimibe (Zetia) 10 MG tablet Take 1 tablet by mouth daily. Metoprolol succinate 25 MG tablet XL Take 1 tablet by mouth 2 times daily. simvastatin 40 MG tablet Take 1 tablet by mouth every evening at 6 PM. traZODone 50 MG tablet Take 2 tablets by mouth at bedtime as needed. No facility-administered medications prior to visit. Past Medical History: Diagnosis Date Acute maxillary sinusitis, unspecified Asthma Atherosclerotic heart disease of [place] coronary artery without angina pectoris CAD (coronary artery disease) Diverticulosis Essential hypertension, benign Gout Hyperlipidemia Nonrheumatic mitral (valve) prolapse Nonrheumatic mitral valve regurgitation PAC (premature atrial contraction) PVC (premature ventricular contraction) Past Surgical History: Procedure Laterality Date BACK SURGERY BREAST BIOPSY COLONOSCOPY DIAGNOSTIC TONSILLECTOMY Family History Problem Relation Age of Onset Hypertension Mother Gout Father Myocardial Infarction Father Coronary Artery Disease Father Heart Surgery Father Diabetes Sister Myocardial Infarction Brother Coronary Artery Disease Brother Myocardial Infarction Brother Coronary Artery Disease Brother Social History Socioeconomic History Marital status: Single Spouse name: Not on file Number of children: Not on file Years of education: Not on file Highest education level: Not on file Occupational History Not on file Tobacco Use Smoking status: Never Smokeless tobacco: Never Vaping Use Vaping Use: Never used Substance and Sexual Activity Alcohol use: Yes Comment: social monthly Drug use: Never Sexual activity: Not on file Other Topics Concern Not on file Social History Narrative Not on file Social Determinants of Health Financial Resource Strain: Not on file Food Insecurity: Not on file Transportation Needs: Not on file Physical Activity: Not on file Stress: Not on file Social Connections: Not on file Intimate Partner Violence: Not on file Housing Stability: Not on file Review of Systems Cardiovascular: Negative for chest pain, claudication, cyanosis, dyspnea on exertion, irregular heartbeat, leg swelling, near-syncope, orthopnea, palpitations, paroxysmal nocturnal dyspnea and syncope. On physcial exam today, the vital signs are as follows: BP 142/68 (BP Location: Left arm, BP Position: Sitting) Pulse 73 Ht 1.651 m (5' 5 ) Wt 98.4 kg (217 lb) BMI 36.11 kg/m Smoking Status Never Body mass index is 36.11 kg/m .. Physical Exam Vitals and nursing note reviewed. Constitutional: Appearance: Normal appearance. She is overweight. HENT: Head: Normocephalic and atraumatic. Cardiovascular: Rate and Rhythm: Normal rate and regular rhythm. Chest Wall: PMI is not displaced. No thrill. Pulses: No decreased pulses. Carotid pulses are 2+ on the right side and 2+ on the left side. Radial pulses are 2+ on the right side and 2+ on the left side. Dorsalis pedis pulses are 2+ on the right side and 2+ on the left side. Posterior tibial pulses are 2+ on the right side and 2+ on the left side. Heart sounds: S1 normal and S2 normal. Murmur heard. Systolic murmur is present with a grade of 3/6. No friction rub. No gallop. Comments: 3/6 somewhat harsh systolic murmur @ LLSB/LVOT/Sternal Notch radiating to the bilateral carotid artery distribution with accentuation with Valsalva maneuver Pulmonary: Effort: Pulmonary effort is normal. Breath sounds: Normal breath sounds. Abdominal: General: Bowel sounds are normal. Palpations: Abdomen is soft. Musculoskeletal: General: Normal range of motion. Cervical back: Normal range of motion and neck supple. Right lower leg: No edema. Left lower leg: No edema. Skin: General: Skin is warm and dry. Neurological: General: No focal deficit present. Mental Status: She is alert. Psychiatric: Mood and Affect: Mood normal. Relevant diagnostic data includes the following: No results found for: CHOLESTEROL , TRIG , HDL , LDLCALC , LDLDIRECT , NHCHOL No results found for: WBC , WBCCOUNT , WBCFETAL , HGB , HCT , PLATELET , MCV No results found for: SODIUM , POTASSIUM , CHLORIDE , CO2 , BUN , CREATSERUM , GLUCOSE No results found for: TSH , UQN00JMS , LNU11DGR , TSHBASELINE , TSHULTRASEN , TSHRFT4 No results found for: HGBA1C I have independently reviewed the following reports and/or images/tracings: as noted below. HOLTER MONITOR 01/15/2011 [facility] ECHOCARDIOGRAM 11/13/2021 [facility] STRESS TEST 12/30/2018 [facility] CAROTID ARTERY DUPLEX STUDY 12/30/2018 [facility] PFTS 02/10/2019 [facility] CARDIAC CATHETERIZATION 08/13/2005 [facility] In summary, Ms. Cheney is managed today for the following issues: Hypertrophic obstructive cardiomyopathy At the present time she appears to be stable. She has no new acute symptoms or adverse events or hemodynamic compromise. Her previous noninvasive and invasive studies were reviewed with her. Her electrocardiogram from this day was reviewed with her. At the present time she will continue her current medical management. Over time she will have follow-up by history, exam, and future cardiovascular diagnostic studies as deemed appropriate. Ectopic beats She does have a history of PACs and PVCs. She has not been known to have any other concerning cardiac dysrhythmias. Her previous noninvasive studies and invasive studies were reviewed with her. At the moment she will continue her medical therapy which includes her metoprolol XL 25 mg p.o. b.i.d.. Nonrheumatic mitral valve insufficiency She does have a history of mitral valve regurgitation. She has been followed by history, exam, and echocardiographic studies. At the moment she appears to be stable without any acute changes. She will continue with future outpatient follow-up and future echocardiographic studies as deemed appropriate. Hyperlipidemia She states she is scheduled for upcoming lipid labs. She will forward a copy to the office for continuity of care. In the interim she will continue her medical therapy with her simvastatin 40 mg p.o. q.day and her ezetimibe Zetia at 10 mg p.o. q.day. Bilateral carotid artery stenosis She does have documented carotid artery stenosis. This is more prominent on the left. She is pending upcoming noninvasive studies in preparation for a left carotid endarterectomy. She continues risk factor modification medical therapy in the interim which does include her lipid-lowering therapy. Pre-operative cardiovascular examination From a preoperative standpoint she appears to be symptomatically and hemodynamically stable at this time. Her previous studies were reviewed with her. It does not appear she requires additional cardiovascular studies prior to her upcoming peripheral vascular surgery procedure. At the time of her surgery be recommended that she have close monitoring of her cardiac rate, rhythm, and blood pressure during and following her surgical procedure. An attempt should be made to avoid excess IV volume overload as well as in her case, based upon her history of a hypertrophic obstructive cardiomyopathy, volume depletion as well. It would be recommended she continue her medical therapy in and around the time of her surgery. This includes her beta-ashlie therapy with her metoprolol XL. Hopefully based upon what appears to be her stable cardiovascular course, continued medical therapy, and close monitoring in and around the time of her surgery, her risks for adverse events from noncardiac surgery will be kept at a minimum. I have ordered the following: Orders Placed This Encounter NM ECG, CLINIC PERFORMED The patient's case was discussed and reviewed with her. She will proceed with continuation of her medical management and continuation of her carotid artery stenosis evaluation and care. She will notify the office if any concerns in the interim. Otherwise, she will be scheduled for future outpatient cardiovascular follow-up visit. Over time she was told that she may need additional follow-up cardiovascular studies either noninvasive or invasive as deemed appropriate. She was agreeable to this approach. We will plan on Return in about 6 months (around 07/29/2023).. If I can be of any further assistance, please do not hesitate to contact me. Sincerely, Feliz Beltre MD, [facility] Surgeon Chief - Clinical [facility] Cardiovascular Medicine Please be aware that portions of this note may have been completed with a voice recognition software system. Despite efforts to edit the note mis-transcribed words may still be present. 12 Lead EKG performed per provider's order, per policy, and given to Dr. Beltre for interpretation. Medical organ tuner offered to patient prior to sensitive procedure and patient declined documented in this encounter [facility] 10-31-2021 Miscellaneous Notes Spoke with pt & confirmed the order for CTA has been placed and will need scheduled/completed prior to the OV on 12/13/21. documented in this encounter [facility] 01-11-2021 Note HNO ID: [id number] Author: Miguelangel Patten MD Service: ? Author Type: Physician Type: Progress Notes Filed: 01/11/2021 11:15 AM Note Text: Patient is seen back today in assessment evaluation of her carotid artery disease. The patient remains asymptomatic from her carotid artery disease and specifically denies any signs or symptoms of TIA or stroke. Specifically she denies any amaurosis fugax difficulty swallowing difficulty speaking weakness of the face arms or legs. She continues on an antiplatelet agent and a statin agent. Part of the issue is that the last time the patient had a CT scan performed it was read as high-grade stenosis on the left and greater than 70% stenosis on the right. We had this we reviewed by radiologists it accurately and she was read as having 50 to 60% stenosis on the right and minimal stenosis on the left. Now she has a new CT scan and the current reading is 50 to 70% stenosis on the right and minimal disease on the left. When I review the films myself again I find that the patient probably has no change in the stenosis in either of her carotid arteries. I reviewed this and she truly has about 50% stenosis of the right internal carotid artery and minimal disease on the left. At this point time I discussed with the patient the fact that she should continue on her current medical regimen. I tell her that she is asymptomatic and with the degree of stenosis that she has my recommendation would be to follow-up in 1 year. Since we have had issues with the reads on this I think we probably should get another CTA in 1 year and follow-up with her after that has been performed. This note was generated with [employer] Agent dictation software. It may contain incorrect words, spelling, and punctuation and that were not noted in review of the chart prior to signing. I spent 15 minutes in the visit, with more than 50% of the total [id number] time of the visit in counseling / coordination of care. The patient is currently taking a statin: Yes The patient is currently taking aspirin: Yes [facility] Hypertrophic obstructive cardiomyopathy- Primary Ectopic beats Premature beats, unspecified Nonrheumatic mitral valve insufficiency Mitral valve disorders Hyperlipidemia, unspecified hyperlipidemia type Bilateral carotid artery stenosis Occlusion and stenosis of multiple and bilateral precerebral arteries without mention of cerebral infarction Pre-operative cardiovascular examination documented in this encounter [facility] Summary Purpose Family History No Family History Records FoundNo Family History Records FoundNo Family History Records FoundNo Family History Records FoundNo Family History Records Found Advance Directives No Advanced Directives Records FoundNo Advanced Directives Records FoundNo Advanced Directives Records FoundNo Advanced Directives Records FoundNo Advanced Directives Records Found Reason for Referral Specialty Diagnoses / Procedures Referred By Contac t Referred To Contact CT IMAGING Diagnoses Carotid stenosis, bilateral Encounter for screening for cardiovascular disorders Procedures CTA NECK W IVCON CT ANGIOGRAPHY NECK W/CONTRAST/NONCONTRAST 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 DATE CREATED AUTHOR AUTHOR'S ORGANIZ ATION 11/01/2021 [facility] DATE CREATED AUTHOR AUTHOR'S ORGANIZ ATION 01/31/2023 [facility] Source Comments (unrecognize d section and content) In the event this informatio n is protected by the Federal Confidentiality of Alcohol and Drug Abuse Patient Records regulations: The Federal rules restrict any use of the information to criminally investigate or prosecute any alcohol or drug abuse patient.[facility] the event this information is protected by the Federal Confidentiality of Alcohol and Drug Abuse Patient Records regulations: The Federal rules restrict any use of the information to criminally investigate or prosecute any alcohol or drug abuse patient.[facility] Care Teams (unrecognized sec tion and content) Marine Plumber Relationship Specialty Start Date End Date Rupali Rizo DO PCP - General Family Practice 03/15/16 Feliz Beltre [address] [place] [address] Cardiology 01/08/19 Marine Plumber Relationship Specialty Start Date End Date Rupali Rizo DO [address] [place] [address] PCP - General Family Medicine 01/28/23 Reason for Visit (unrecogniz ed section and content) Reason Comments Heart Problem Re-establish Care Patient noted interm ittent left ankle swelling. Denied any other cardiac symptoms. Patient previously followed with Dr. Beltre at another location and wishes to establish care with him at [facility]. Specialty Diagnoses / Procedures Referred By Contact Referred To Contact Cardiovascular Disease / Cardiovascular Medicine Diagnoses sched w/pt, previously seen by Dr. Beltre in [place] Procedures [place] [address] [place] [address] [place] [address] Feliz Beltre MD [address] [place] [address] Referral ID Status Reason Start Date Expiration Date V isits Requested Visits Authorized [id number] Pending Review 01/28/2023 02/22/2024 1 1 FOR RECORDS PERTAINING TO PATIENTS WHO ARE OR HAVE BEEN ENROLLED IN A CHEMICAL DEPENDENCY/SUBSTANCEABUSE PROGRAM, SOME INFORMATION MAY BE OMITTED. This clinical summary was aggregated from multiple sources. Caution should be exercised in using it in the provision of clinical care. This summary normalizes information from multiple sources, and as a consequence, information in this document may materially change the coding, format and clinical context of patient data. In addition, data may be omitted in some cases. CLINICAL DECISIONS SHOULD BE BASED ON THE PRIMARY CLINICAL RECORDS. [employer] provides no warranty or guarantee of the accuracy or completeness of information in this document.
== END 2023-07-17 18:14 | disposition home or self-care (01) ==
PROVIDERS: Emergency Provider Emergency Medicine; PCP Family Medicine; Visit Provider Emergency Medicine
DX: S80.01XA Contusion of right knee, initial encounter (principal); W01.10XA Fall on same level from slipping, tripping and stumbling with subsequent striking against unspecified object, initial encounter; Y93.89 Activity, other specified; I25.10 Atherosclerotic heart disease of native coronary artery without angina pectoris; I10 Essential (primary) hypertension; E78.5 Hyperlipidemia, unspecified; Z79.82 Long term (current) use of aspirin; Z79.899 Other long term (current) drug therapy
CPT/HCPCS: 73564; 99282

== ENCOUNTER → 2023-08-11 | Outpatient (CLI) | payer OTHER, SELFPAY ==
--- NOTE | 2023-08-11 15:16 | CDU_ITS ---
Reason For Study: Carotid stenosis Rt. Velocities/BP Lt. Velocities/BP Prox CCA 75.9/16.3 cm/sec. Prox CCA 94.9/16.8 cm/sec. Mid CCA 70.2/18.2 cm/sec. Mid CCA 83.9/16.8 cm/sec. Dist CCA 63.6/15.4 cm/sec. Dist CCA 72.9/16.8 cm/sec. Prox ICA 106/34.8 cm/sec. Prox ICA 243.4/81.8 cm/sec. Mid ICA 119.3/31.6 cm/sec. Mid ICA 88.2/20.6 cm/sec. Dist ICA 115.6/26.1 cm/sec. Dist ICA 94.9/31.1 cm/sec. Rt. ICA/CCA = 1.70. Lt. ICA/CCA = 2.90. Prox ECA 93.8/6.9 cm/sec. Prox ECA 132.1/7.9 cm/sec. Rt. Vert. 60.8/15.7 cm/sec. Lt. Vert. 55.6/13.9 cm/sec. Right Extracranial There is homogeneous, smooth atherosclerotic plaque noted in the right common carotid artery. There is heterogeneous, irregular atherosclerotic plaque noted in the right internal carotid artery. There is intimal thickening but no significant atherosclerotic plaque noted in the right external carotid artery. Antegrade flow is noted in the right vertebral artery. Left Extracranial There is homogeneous, smooth atherosclerotic plaque noted in the left common carotid artery. There is heterogeneous, irregular atherosclerotic plaque noted in the left internal carotid artery. There is intimal thickening but no significant atherosclerotic plaque noted in the left external carotid artery. Antegrade flow is noted in the left vertebral artery. Procedure Carotid Duplex [id number]. This is a Carotid Duplex examination using B-mode, color flow and specral Doppler. Exam performed in department. VL/Carotid Duplex Ultrasound Interpretation Summary Mild (<50%) stenosis right extracranial internal carotid. Severe (>70%) stenosis left extracranial internal carotid. Patent and antegrade vertebrals bilaterally. Ordering Physician: Jaleesa Bose Referring Physician: Rupali Rizo Performed By: Selina Jasmine RVT
== END | disposition home or self-care (01) ==
LOC: CVS 15:14
PROVIDERS: PCP Family Medicine; Visit Provider Physician Assistant
DX: I65.23 Occlusion and stenosis of bilateral carotid arteries (principal)
CPT/HCPCS: 93880

== ENCOUNTER → 2023-10-07 | Outpatient (CLI) | payer OTHER, SELFPAY ==
--- NOTE | 2023-10-07 13:34 | ECHOD_ITS ---
Reason For Study: HOCM/HCM Procedure This was a 2D Doppler, Color Flow transthoracic echocardiogram. The study was technically difficult. Exam performed in department. Left Ventricle Normal LV size. Severe concentric left ventricular hypertrophy. Left ventricular systolic function is hyperdynamic. The estimated ejection fraction is 70 %. The global longitudinal strain = -14.9% (abnormal). Resting LV gradient 31 mmHg. Valsalva LV gradient 67 mmHg. Diastolic function is indeterminate. Right Ventricle Normal RV size. Normal systolic function. Atria The left atrium is moderately enlarged. Normal right atrium. Mitral Valve Chordal systolic anterior motion of the mitral valve. Moderate mitral annular calcification. There is no mitral valve stenosis. Moderate (2+) mitral valve insufficiency. Tricuspid Valve Normal tricuspid valve. Trivial tricuspid valve insufficiency. Unable to estimate RV systolic pressure due to insufficient tricuspid regurgitant envelope. Aortic Valve Trisinus/trileaflet aortic valve. Mild aortic stenosis. Peak aortic valve gradient 23 mmHg. Mean aortic valve gradient 15 mmHg. Pulmonic Valve The pulmonic valve is not well visualized. Trivial pulmonic valve insufficiency. Great Vessels Normal aortic root. Pericardium/Pleural Trivial pericardial effusion. MMode/2D Measurements & Calculations LVIDd: 3.9 cm IVSd: 2.1 cm LVOT diam: 2.0 cm LVIDs: 2.0 cm LVPWd: 1.9 cm LVOT area: 3.1 cm2 RVDd: 3.6 cm FS: 48.7 % Ao root diam: 2.9 cm LAV(MOD-bp): 68.7 ml LVAd ap4: 22.7 cm2 LAV(MOD-bp) Indexed: 33.4 ml/m2 LVLd ap4: 6.9 cm LAV(MOD-sp2): 81.8 ml EDV(MOD-sp4): 62.9 ml LAV(MOD-sp4): 58.0 ml EDV(sp4-el): 63.1 ml LVAs ap4: 9.6 cm2 LVLs ap4: 5.5 cm ESV(MOD-sp4): 14.7 ml ESV(sp4-el): 14.3 ml EF(MOD-sp4): 76.6 % EF(sp4-el): 77.3 % LVAd ap2: 19.7 cm2 SV(MOD-sp4): 48.2 ml SV(MOD-sp2): 34.5 ml LVLd ap2: 6.6 cm EDV(MOD-sp2): 48.3 ml EDV(sp2-el): 49.8 ml LVAs ap2: 9.5 cm2 LVLs ap2: 5.8 cm ESV(MOD-sp2): 13.8 ml ESV(sp2-el): 13.2 ml EF(MOD-sp2): 71.4 % SV(sp4-el): 48.8 ml LA dimension(2D): 4.8 cm LA A4 area: 21.1 cm2 RA A4 area: 13.3 cm2 TAPSE: 2.3 cm Time Measurements MV dec time: 0.23 sec Doppler Measurements & Calculations MV E max deshaun: 110.4 cm/sec Lat Peak E' Deshaun: 6.9 cm/sec Med Peak E' Deshaun: 5.6 cm/sec MV A max deshaun: 155.9 cm/sec E/E' lat: 15.9 E/E' med: 19.5 MV E/A: 0.71 MV V2 max: 153.0 cm/sec Ao V2 max: 238.7 cm/sec MV max P.4 mmHg MV dec slope: 482.1 cm/sec2 Ao max P.8 mmHg MV V2 mean: 96.2 cm/sec Ao V2 mean: 187.0 cm/sec MV mean P.0 mmHg Ao mean P.9 mmHg MV V2 VTI: 40.1 cm Ao V2 VTI: 49.1 cm PA V2 max: 102.6 cm/sec PA max PG (full): -0.18 mmHg ECHO/Echo Complete Interpretation Summary The estimated ejection fraction is 70 %. Diastolic function is indeterminate. Severe concentric left ventricular hypertrophy. Valsalva LV gradient 67 mmHg. Moderate mitral valve regurgitation. Mild aortic stenosis. Left atrium moderately dilated. Ordering Physician: Feliz Coronado Referring Physician: Rupali Rizo Performed By: Rashmi Calderon RDCS
== END | disposition home or self-care (01) ==
PROVIDERS: PCP Family Medicine; Referring Provider Internal Medicine Cardiovascular Disease; Visit Provider Internal Medicine Cardiovascular Disease
DX: Z01.810 Encounter for preprocedural cardiovascular examination (principal); I42.1 Obstructive hypertrophic cardiomyopathy; I34.0 Nonrheumatic mitral (valve) insufficiency; E78.5 Hyperlipidemia, unspecified; I49.49 Other premature depolarization; I65.23 Occlusion and stenosis of bilateral carotid arteries
CPT/HCPCS: 93306

== ENCOUNTER → 2024-02-11 | Outpatient (CLI) | payer OTHER, SELFPAY ==
--- NOTE | 2024-02-11 15:04 | CDU_ITS ---
Reason For Study: Lt ICA Stenosis Rt. Velocities/BP Lt. Velocities/BP Prox CCA 86.9/19.4 cm/sec. Prox CCA 86.9/19.4 cm/sec. Mid CCA 88.8/19.4 cm/sec. Mid CCA 88.8/21.2 cm/sec. Dist CCA 68.7/17.5 cm/sec. Dist CCA 81.5/21.2 cm/sec. Prox ICA 108.9/35.8 cm/sec. Prox ICA 237.9/79.5 cm/sec. Mid ICA 71.9/20.7 cm/sec. Mid ICA 195.7/37.5 cm/sec. Dist ICA 125.3/37.6 cm/sec. Dist ICA 84.2/30.2 cm/sec. Rt. ICA/CCA = 1.4. Lt. ICA/CCA = 2.7. Prox ECA 95.3/5.6 cm/sec. Prox ECA 111.1/12.3 cm/sec. Rt. Vert. 43.7/11.8 cm/sec. Lt. Vert. 36.2/7.8 cm/sec. Right Extracranial There is intimal thickening but no significant atherosclerotic plaque noted in the right common carotid artery. There is heterogeneous, irregular atherosclerotic plaque noted in the right internal carotid artery. There is intimal thickening but no significant atherosclerotic plaque noted in the right external carotid artery. Antegrade flow is noted in the right vertebral artery. Left Extracranial There is heterogeneous, irregular atherosclerotic plaque noted in the left common carotid artery. There is heterogeneous, irregular atherosclerotic plaque noted in the left internal carotid artery. There is intimal thickening but no significant atherosclerotic plaque noted in the left external carotid artery. Antegrade flow is noted in the left vertebral artery. Procedure Carotid Duplex [id number]. This is a Carotid Duplex examination using B-mode, color flow and specral Doppler. The exam was diagnostic. Exam performed in department. VL/Carotid Duplex Ultrasound Interpretation Summary Moderate (50-69%) stenosis right extracranial internal carotid. Severe (>70%) stenosis left extracranial internal carotid. Patent and antegrade vertebrals bilaterally. Ordering Physician: Jaleesa Bose Referring Physician: Rupali Rizo Performed By: Deyvi Vásquez RVT
== END | disposition home or self-care (01) ==
LOC: CVS 15:02
PROVIDERS: PCP Family Medicine; Referring Provider Physician Assistant; Visit Provider Physician Assistant
DX: I65.23 Occlusion and stenosis of bilateral carotid arteries (principal)
CPT/HCPCS: 93880

== ENCOUNTER → 2024-08-30 | Outpatient (CLI) | payer MEDICARE, OTHER, SELFPAY ==
--- NOTE | 2024-08-30 12:57 | BI_ITS ---
EXAM: SCRN MAMM (CAD)W/TA BILAT DATE: 08/30/2024 CLINICAL HISTORY: F, Age 74 y/o , SCREENING BREAST CANCER RISK ASSESSMENT: Has not been calculated. TECHNIQUE: Bilateral screening digital breast tomosynthesis with 2D and 3D images. Computer aided detection. COMPARISON: Prior exam(s) dated 07/10/2023 and 06/18/2022. FINDINGS: TISSUE DENSITY: The breast tissue is almost entirely fatty. Bilateral Breast Mammographic Findings: No suspicious masses, suspicious clustered microcalcifications, architectural distortion or secondary sign of malignancy is identified in either breast. Benign round microcalcifications are seen in both breasts. BI/SCRN MAMM (CAD)W/TA BILAT IMPRESSION: Right Breast: BIRADS 2 BENIGN FINDING. Left Breast: BIRADS 2 BENIGN FINDING. OVERALL FINAL ASSESSMENT: BIRADS 2 BENIGN FINDING RECOMMENDATION: Routine annual follow-up in 1 Year A letter with findings and recommendations will be mailed to the patient. Reading Location: [id number]
== END | disposition home or self-care (01) ==
LOC: OPBI 12:56
PROVIDERS: PCP Family Medicine; Referring Provider Family Medicine; Visit Provider Family Medicine
DX: Z12.31 Encounter for screening mammogram for malignant neoplasm of breast (principal)
CPT/HCPCS: 77063; 77067

== ENCOUNTER → 2024-09-01 | Outpatient (CLI) | payer MEDICARE, SELFPAY ==
--- NOTE | 2024-09-01 08:51 | CDU_ITS ---
Reason For Study Reason For Study: Lt ICA Stenosis Rt. Velocities/BP Lt. Velocities/BP Prox CCA 90.8/19.3 cm/sec. Prox CCA 89.1/21.6 cm/sec. Mid CCA 79.9/18.5 cm/sec. Mid CCA 104.3/22.0 cm/sec. Dist CCA 62.0/15.7 cm/sec. Dist CCA 79.7/19.5 cm/sec. Prox ICA 106.7/36.4 cm/sec. Prox ICA 245.6/83.1 cm/sec. Mid ICA 110.8/36.0 cm/sec. Mid ICA 128.2/33.4 cm/sec. Dist ICA 107.0/30.3 cm/sec. Dist ICA 83.8/32.7 cm/sec. Rt. ICA/CCA = 1.4. Lt. ICA/CCA = 2.4. Prox ECA 112.5/10.2 cm/sec. Prox ECA 136.3/17.5 cm/sec. Rt. Vert. 54.6/15.4 cm/sec. Lt. Vert. 38.1/9.0 cm/sec. Right Extracranial There is intimal thickening but no significant atherosclerotic plaque noted in the right common carotid artery. There is heterogeneous, irregular atherosclerotic plaque noted in the right internal carotid artery. There is heterogeneous, irregular atherosclerotic plaque noted in the right external carotid artery. Antegrade flow is noted in the right vertebral artery. Left Extracranial There is heterogeneous, irregular atherosclerotic plaque noted in the left common carotid artery. There is heterogeneous, irregular atherosclerotic plaque noted in the left internal carotid artery. There is heterogeneous, irregular atherosclerotic plaque noted in the left external carotid artery. Antegrade flow is noted in the left vertebral artery. Procedure Carotid Duplex [id number]. This is a Carotid Duplex examination using B-mode, color flow and specral Doppler. The exam was diagnostic. Exam performed in department. VL/Carotid Duplex Ultrasound Interpretation Summary Mild (<50%) stenosis right extracranial internal carotid. Severe (>70%) stenosis left extracranial internal carotid. Patent and antegrade vertebrals bilaterally. Ordering Physician: Jaleesa Bose Referring Physician: Rupali Rizo Performed By: Deyvi Vásquez RVT
== END | disposition home or self-care (01) ==
PROVIDERS: PCP Family Medicine; Referring Provider Physician Assistant; Visit Provider Physician Assistant
DX: I65.23 Occlusion and stenosis of bilateral carotid arteries (principal)
CPT/HCPCS: 93880